=== PATIENT | male | born 1965 | race American Indian/Alaskan Native ===

== ENCOUNTER 2016-09-18 11:57 | Emergency (ER) | payer MEDICAID, OTHER ==
[2016-09-18] MEDS ORDERED: DUONEB 0.5 MG-3 MG/3 ML SOLN IH ONE (12:09)
[2016-09-18] MEDS: DUONEB 0.5 MG-3 MG/3 ML SOLN IH ONE ×2 (12:11→12:12)
[2016-09-18] MEDS ORDERED: MAGNESIUM SULFATE 2GM/50ML 2 GM/50 ML BAG IV ONE (12:50)
[2016-09-18] MEDS ORDERED: PROVENTIL IH ONE (12:50)
--- NOTE | 2016-09-18 12:50 | Emergency Department Report ---
ED Asthma HPI - General Chief Complaint: Adult Asthma Stated Complaint: ASTHMA/ASHLEY Time Seen by Provider: 09/18/16 12:24 Source: patient, family Mode of arrival: Ambulatory Limitations: No Limitations - History of Present Illness Initial Comments: Patient here reported asthma symptoms. He denies having this for 3 days. He said he noted another facility yesterday and was prescribed Symbicort and albuterol and he is used all medication. Patient reports that he takes Dulera and ProAir . He reports then, coughing and chest tightness. He reported his blood pressure medication. Chest pain is 9 out of 10 with similar episode of asthma. He has a history of asthma and hypertension. Denies any history of heart disease. He denies any difficulty breathing. Denies any fever or chills.Deniesn any abdominal pain MD Complaint: "asthma attack", wheezing, other (Medication refill) Onset/Timin -: days(s) Asthma History: childhood onset, history of frequent attac, history of prior ED visit Severity: severe, similar to prior Context: ran out of meds, medication non-compliance Associated Symptoms: dry cough Treatments Prior to Arrival: inhaled bronchodilator, inhaled steroid - Related Data Current Asthma Therapy: inhaled bronchodilator, inhaled steroid, other (Ran out) Home Medications Medication Instructions Recorded Confirmed Last Taken ALBUTEROL NEB's [Proventil 0.083% 1 dose INHALATION 08/16/14 08/16/14 Unknown NEBS] Previous Rx's Medication Instructions Recorded Last Taken Type ALBUTEROL Inhaler [Proair] 2 puff IH QID PRN #1 inhalation 09/18/16 Unknown Rx Azithromycin [Zithromax] 250 mg PO QAM #6 tablet 09/18/16 Unknown Rx Lisinopril [Zestril TAB] 20 mg PO QDAY #30 tablet 09/18/16 Unknown Rx Mometasone/Formoterol [Dulera 200 2 puff IH BID #1 hfa.aer.ad 09/18/16 Unknown Rx Mcg/5 Mcg Inhaler] Allergies Allergy/AdvReac Type Severity Reaction Status Date / Time bee pollen Allergy Shortness Verified 08/15/14 21:50 of Breath mold Allergy Shortness Uncoded 08/15/14 21:50 of Breath ED Review of Systems ROS: Stated complaint: ASTHMA/ASHLEY Other details as noted in HPI Comment: All other systems reviewed and negative Constitutional: denies: chills, fever ENT: denies: ear pain, throat pain, congestion Respiratory: cough, wheezing. denies: orthopnea, shortness of breath, SOB with exertion, SOB at rest, stridor Cardiovascular: chest pain (chest tightness). denies: palpitations, edema, syncope Gastrointestinal: denies: abdominal pain, nausea, vomiting Skin: denies: rash Neurological: denies: headache, weakness, numbness, paresthesias, confusion, abnormal gait, vertigo ED Past Medical Hx - Past Medical History Previous Medical History?: Yes Hx Hypertension: Yes Hx Asthma: Yes - Surgical History Past Surgical History?: No - Family History Family history: hypertension - Social History Smoking Status: Never Smoker Substance Use Type: Alcohol, Prescribed - Medications Home Medications: Home Medications Medication Instructions Recorded Confirmed Last Taken Type ALBUTEROL NEB's [Proventil 0.083% 1 dose INHALATION 08/16/14 08/16/14 Unknown History NEBS] ALBUTEROL Inhaler [Proair] 2 puff IH QID PRN #1 inhalation 09/18/16 Unknown Rx Azithromycin [Zithromax] 250 mg PO QAM #6 tablet 09/18/16 Unknown Rx Lisinopril [Zestril TAB] 20 mg PO QDAY #30 tablet 09/18/16 Unknown Rx Mometasone/Formoterol [Dulera 200 2 puff IH BID #1 hfa.aer.ad 09/18/16 Unknown Rx Mcg/5 Mcg Inhaler] ED Physical Exam - General Limitations: No Limitations General appearance: alert, in no apparent distress - Head Head exam: Present: atraumatic, normocephalic, normal inspection - Eye Eye exam: Present: normal appearance, PERRL, EOMI. Absent: scleral icterus, conjunctival injection, periorbital swelling, periorbital tenderness Pupils: Present: normal accommodation - ENT ENT exam: Present: normal exam, normal orophraynx, mucous membranes moist, TM's normal bilaterally, normal external ear exam - Neck Neck exam: Present: normal inspection, full ROM. Absent: tenderness, meningismus, lymphadenopathy - Respiratory Respiratory exam: Present: normal lung sounds bilaterally, wheezes. Absent: respiratory distress, rales, rhonchi, stridor, chest wall tenderness, accessory muscle use, decreased breath sounds, prolonged expiratory - Cardiovascular Cardiovascular Exam: Present: regular rate, normal rhythm, normal heart sounds - GI/Abdominal GI/Abdominal exam: Present: soft, normal bowel sounds. Absent: distended, tenderness, guarding, rebound, rigid - Extremities Exam Extremities exam: Present: normal inspection, full ROM, normal capillary refill. Absent: tenderness, pedal edema, joint swelling - Back Exam Back exam: Present: normal inspection, full ROM. Absent: tenderness - Neurological Exam Neurological exam: Present: alert, oriented X3, normal gait, reflexes normal. Absent: motor sensory deficit - Psychiatric Psychiatric exam: Present: normal affect, normal mood - Skin Skin exam: Present: warm, dry, intact, normal color. Absent: rash ED Course Vital Signs 09/18/16 09/18/16 09/18/16 12:02 12:15 12:35 Temperature 98.8 F Pulse Rate 94 H Pulse Rate [ 98 H 99 H Bilateral Upper Lobe] Respiratory 22 Rate Respiratory 20 18 Rate [Bilateral Upper Lobe] Blood Pressure 153/101 Blood Pressure [Left] O2 Sat by Pulse 96 Oximetry 09/18/16 09/18/16 09/18/16 12:58 13:16 14:54 Temperature Pulse Rate Pulse Rate [ 105 H 110 H 108 H Bilateral Upper Lobe] Respiratory Rate Respiratory 20 20 20 Rate [Bilateral Upper Lobe] Blood Pressure Blood Pressure [Left] O2 Sat by Pulse Oximetry 09/18/16 09/18/16 15:11 17:07 Temperature 98 F Pulse Rate 89 Pulse Rate [ 109 H Bilateral Upper Lobe] Respiratory 18 Rate Respiratory 20 Rate [Bilateral Upper Lobe] Blood Pressure Blood Pressure 156/96 [Left] O2 Sat by Pulse 97 Oximetry - Reevaluation(s) Reevaluation #1: 09/18/16 14:39 Patient received IV magnesium, and nebulizer, albuterol 10 mg nebulizer and Solu -Medrol 125 mg IV with some relief but he said he feels tight in his lungs. I spoke Dr. Ji patient received 5 mg of Xopenex and reevaluated. Reevaluation #2: 09/18/16 16:54 Patient given Xopenex 2.5 mg nebulizer and he reports he is feeling better. Also given lisinopril 20 mg elevated blood pressure with history of HTN ED Medical Decision Making - Medical Decision Making ED course: Seen here with acute exacerbation of asthma. He was given DuoNeb 2 and treatment in triage area which did not relieve his wheezing and chest tightness. Patient was given additional albuterol 10 mg nebulized in ED, Solu -Medrol 125 mg IV and magnesium 2 g IV. After treatments and reevaluated and he feels wheezing and the tightness was relieved. Upon evaluation, patient still with wheezing in the lung ponce which has improved. She was given additional Xopenex 2.5 mg nebulizer and operative evaluation he still has some scattered wheezes and prolonged ponce but he said he feels much better and he is ready to leave. I spoke with Dr. nieto on regarding patient presentation, treatment in emergency room. Patient also with elevated blood pressure with history of high blood pressure and he said he ran out of his lisinopril one month ago. Patient was given lisinopril 20 mg in emergency room and discharged home with prescription for lisinopril, Dulera, prednisone and ProAir. Critical care attestation.: If time is entered above; I have spent that time in minutes in the direct care of this critically ill patient, excluding procedure time. ED Disposition Clinical Impression: Cough in adult, Elevated blood pressure reading with diagnosis of hypertension , Medication refill Acute asthma exacerbation Qualifiers: Asthma severity: moderate persistent Qualified Code(s): J45.41 - Moderate persistent asthma with (acute) exacerbation Disposition: DC-01 TO HOME OR SELFCARE Is pt being admited?: No Does the pt Need Aspirin: No Condition: Stable Instructions: Asthma (ED), Hypertension (ED), Acute Cough (ED) Additional Instructions: Since you do not have a primary care physician, follow-up at [facility] for management of asthma and hypertension Please take medication as prescribed. If Symptoms to return, please return to emergency room Prescriptions: ALBUTEROL Inhaler [Proair] 2 puff IH QID PRN #1 inhalation PRN Reason: WHEEZING AND COUGH Azithromycin [Zithromax] 250 mg PO QAM #6 tablet Lisinopril [Zestril TAB] 20 mg PO QDAY #30 tablet Mometasone/Formoterol [Dulera 200 Mcg/5 Mcg Inhaler] 2 puff IH BID #1 hfa.aer.ad Referrals: [facility] [Outside] - 09/22/16 Forms: Accompanied Note, Work/School Release Form(ED)
[2016-09-18] MEDS ORDERED: XOPENEX IH ONE (14:42)
[2016-09-18] MEDS ORDERED: ZESTRIL PO ONE (16:53)
[2016-09-18 17:15] VITALS: BP 156/96
[2016-09-18] MEDS ORDERED: NACL ONE (19:12)
== END 2016-09-18 17:25 | disposition home or self-care (01) ==
LOC: ED 11:57
DX: J45.41 Moderate persistent asthma with (acute) exacerbation (principal); Z76.0 Encounter for issue of repeat prescription; I10 Essential (primary) hypertension; Z91.048 Other nonmedicinal substance allergy status
CPT/HCPCS: 94640; 96365; 96366; 96375; 99283; J2930; J3475

== ENCOUNTER 2016-11-02 20:19 | Inpatient (IN) | payer MEDICAID ==
[2016-11-02] MEDS ORDERED: ATROVENT IH ONE (20:41)
[2016-11-02] MEDS ORDERED: PROVENTIL IH ONE ×2 (20:41→22:39)
[2016-11-02 21:21] LABS: Hematocrit 45.4 % (35.5-45.6); Hemoglobin 14.3 gm/dl (11.8-15.2); Mean Corpuscular HGB Conc 32 % (32-34); Mean Corpuscular Hemoglobin 29 pg (28-32); Mean Corpuscular Volume 91 fl (84-94); Platelet Count 241 K/mm3 (140-440); Red Blood Count 4.99 M/mm3 (3.65-5.03); Red Cell Distribution Width 14.2 % (13.2-15.2); White Blood Count 14.6 K/mm3 (4.5-11.0)
[2016-11-02 21:42] LABS: Anion Gap 19 mmol/L; Blood Urea Nitrogen 22 mg/dL (9-20); Calcium 8.7 mg/dL (8.4-10.2); Carbon Dioxide 21 mmol/L (22-30); Chloride 104.7 mmol/L (98-107); Glucose 166 mg/dL (75-100); Potassium 3.9 mmol/L (3.6-5.0); Sodium 141 mmol/L (137-145)
--- NOTE | 2016-11-02 22:02 | XRay Report ---
FINAL REPORT EXAM: XR CHEST 1V AP HISTORY: sob TECHNIQUE: upright single view chest PRIORS: None. FINDINGS: Cardiac and mediastinal contours are unremarkable. No focal pulmonary infiltrate is identified. No pleural fluid collection seen. Pulmonary vasculature is unremarkable. IMPRESSION: Negative single-view chest
--- NOTE | 2016-11-02 22:40 | Emergency Department Report ---
ED Shortness of Breath HPI - General Chief Complaint: Dyspnea/Respdistress Stated Complaint: DIFFICULTY IN BREATHING Time Seen by Provider: 11/02/16 21:17 Source: EMS Mode of arrival: Stretcher Limitations: No Limitations - History of Present Illness Initial Comments: 51-year-old male with a past medical history asthma and hypertension presents to the hospital complaining of wheezing and shortness of breath. Patient has been short of breath for the past 2 days. Dry cough reported. Patient is noncompliant with Symbicort and Dulera but ran out of his albuterol yesterday due to increased use. He does not have a nebulizer at this time. No oral steroids at this time. He does not have a bead filler. No previous intubations. Patient received albuterol, Solu-Medrol, and magnesium in route via EMS. Patient also reports a papular rash to the right side of his withdrawal extending into behind his ear. Swelling to area has improved but persistent - Related Data Home Medications Medication Instructions Recorded Confirmed Last Taken ALBUTEROL NEB's [Proventil 0.083% 1 dose INHALATION 08/16/14 08/16/14 Unknown NEBS] Previous Rx's Medication Instructions Recorded Last Taken Type ALBUTEROL Inhaler [Proair] 2 puff IH QID PRN #1 inhalation 09/18/16 Unknown Rx Azithromycin [Zithromax] 250 mg PO QAM #6 tablet 09/18/16 Unknown Rx Lisinopril [Zestril TAB] 20 mg PO QDAY #30 tablet 09/18/16 Unknown Rx Mometasone/Formoterol [Dulera 200 2 puff IH BID #1 hfa.aer.ad 09/18/16 Unknown Rx Mcg/5 Mcg Inhaler] Allergies Allergy/AdvReac Type Severity Reaction Status Date / Time bee pollen Allergy Shortness Verified 08/15/14 21:50 of Breath mold Allergy Shortness Uncoded 08/15/14 21:50 of Breath ED Review of Systems ROS: Stated complaint: DIFFICULTY IN BREATHING Other details as noted in HPI Comment: All other systems reviewed and negative Other: Constitutional: No fevers chills Eyes: No eye pain visual changes ENT: No ear pain or throat pain Neck: Denies pain Respiratory: As per HPI Cardiovascular: Denies chest pain, palpitations, syncope GI: Denies abdominal pain, nausea, vomiting, diarrhea : Denies dysuria Musculoskeletal: Denies back pain, joint swelling Skin: Skin as per HPI Neurologic: Denies headache, numbness, weakness Psychiatric: Denies suicidal ideation, hallucinations ED Past Medical Hx - Past Medical History Hx Hypertension: Yes Hx Asthma: Yes - Social History Smoking Status: Never Smoker Substance Use Type: None - Medications Home Medications: Home Medications Medication Instructions Recorded Confirmed Last Taken Type ALBUTEROL NEB's [Proventil 0.083% 1 dose INHALATION 08/16/14 08/16/14 Unknown History NEBS] ALBUTEROL Inhaler [Proair] 2 puff IH QID PRN #1 inhalation 09/18/16 Unknown Rx Azithromycin [Zithromax] 250 mg PO QAM #6 tablet 09/18/16 Unknown Rx Lisinopril [Zestril TAB] 20 mg PO QDAY #30 tablet 09/18/16 Unknown Rx Mometasone/Formoterol [Dulera 200 2 puff IH BID #1 hfa.aer.ad 09/18/16 Unknown Rx Mcg/5 Mcg Inhaler] ED Physical Exam - General Limitations: No Limitations - Other Other exam information: General: No limitations, patient is alert in no acute distress Head exam: Atraumatic, normocephalic Eyes exam: Normal appearance, pupils equal reactive to light, extraocular movements intact ENT: Moist mucous membrane, normal oropharynx Neck exam: Normal inspection, full range of motion, no meningismus nontender Respiratory exam: Wheezing, tachypnea, mild accessory muscle use Cardiovascular: Normal rate and rhythm, normal heart sounds Abdomen: Soft, nondistended, and nontender, with normal bowel sounds, no rebound, or guarding Extremity: Full range of motion normal inspection no deformity, no calf tenderness or edema Back: Normal Inspection, full range of motion, no tenderness Neurologic: Alert, oriented x3, cranial nerves intact, no motor or sensory deficit Psychiatric: normal affect, normal mood Skin: Patient has a papular follicular rash to right mandible area along side of serrano with papules extending behind the ear. No active drainage, induration , warmth, erythema. Folliculitis from shaving suspected ED Course Vital Signs 11/02/16 11/02/16 11/02/16 20:34 20:41 20:44 Temperature 98 F Pulse Rate 102 H 103 H 101 H Pulse Rate [ Bilateral Throughout] Respiratory 17 18 24 Rate Respiratory Rate [Bilateral Throughout] Blood Pressure 180/94 Blood Pressure 180/94 [Left] O2 Sat by Pulse 95 95 96 Oximetry 11/02/16 11/02/16 11/02/16 20:51 21:00 21:11 Temperature Pulse Rate 98 H 95 H 96 H Pulse Rate [ Bilateral Throughout] Respiratory 20 17 17 Rate Respiratory Rate [Bilateral Throughout] Blood Pressure 180/94 161/99 161/99 Blood Pressure [Left] O2 Sat by Pulse 97 98 98 Oximetry 11/02/16 11/02/16 11/02/16 21:21 21:31 21:35 Temperature Pulse Rate 94 H 96 H Pulse Rate [ 88 Bilateral Throughout] Respiratory 18 20 Rate Respiratory 20 Rate [Bilateral Throughout] Blood Pressure 161/99 161/99 Blood Pressure [Left] O2 Sat by Pulse 100 100 Oximetry 11/02/16 11/02/16 11/02/16 21:41 21:51 22:00 Temperature Pulse Rate 97 H 97 H 96 H Pulse Rate [ Bilateral Throughout] Respiratory 13 19 15 Rate Respiratory Rate [Bilateral Throughout] Blood Pressure 161/99 161/99 169/91 Blood Pressure [Left] O2 Sat by Pulse 100 99 97 Oximetry 11/02/16 11/02/16 11/02/16 22:11 22:21 22:31 Temperature Pulse Rate Pulse Rate [ Bilateral Throughout] Respiratory Rate Respiratory Rate [Bilateral Throughout] Blood Pressure 169/91 169/91 169/91 Blood Pressure [Left] O2 Sat by Pulse 100 96 76 L Oximetry 11/02/16 11/02/16 11/02/16 22:41 23:12 23:15 Temperature 98.6 F Pulse Rate Pulse Rate [ Bilateral Throughout] Respiratory Rate Respiratory Rate [Bilateral Throughout] Blood Pressure 169/91 169/91 Blood Pressure [Left] O2 Sat by Pulse 100 Oximetry 11/02/16 11/02/16 11/02/16 23:21 23:31 23:41 Temperature Pulse Rate 101 H 98 H 101 H Pulse Rate [ Bilateral Throughout] Respiratory 33 H 17 20 Rate Respiratory Rate [Bilateral Throughout] Blood Pressure 159/108 192/105 169/91 Blood Pressure [Left] O2 Sat by Pulse 97 99 97 Oximetry 11/02/16 11/03/16 23:51 00:01 Temperature Pulse Rate 103 H 101 H Pulse Rate [ Bilateral Throughout] Respiratory 18 15 Rate Respiratory Rate [Bilateral Throughout] Blood Pressure 169/91 194/95 Blood Pressure [Left] O2 Sat by Pulse 89 97 Oximetry - Reevaluation(s) Reevaluation #1: 11/03/16 Despite ED treatment patient continues to have wheezing and therefore requires admission ED Medical Decision Making - Lab Data Result diagrams: 11/02/16 20:41 11/02/16 20:41 Lab Results 11/02/16 11/02/16 Range/Units 20:41 20:41 WBC 14.6 H (4.5-11.0) K/mm3 RBC 4.99 (3.65-5.03) M/mm3 Hgb 14.3 (11.8-15.2) gm/dl Hct 45.4 (35.5-45.6) % MCV 91 (84-94) fl MCH 29 (28-32) pg MCHC 32 (32-34) % RDW 14.2 (13.2-15.2) % Plt Count 241 (140-440) K/mm3 Lymph % (Auto) 5.2 L (13.4-35.0) % [place] % (Auto) 6.2 (0.0-7.3) % Eos % (Auto) 0.0 (0.0-4.3) % Baso % (Auto) 0.0 (0.0-1.8) % Lymph # 0.8 L (1.2-5.4) K/mm3 [place] # 0.9 H (0.0-0.8) K/mm3 Eos # 0.0 (0.0-0.4) K/mm3 Baso # 0.0 (0.0-0.1) K/mm3 Seg Neutrophils % 88.6 H (40.0-70.0) % Seg Neutrophils # 13.0 H (1.8-7.7) K/mm3 Sodium 141 (137-145) mmol/L Potassium 3.9 (3.6-5.0) mmol/L Chloride 104.7 (98-107) mmol/L Carbon Dioxide 21 L (22-30) mmol/L Anion Gap 19 mmol/L BUN 22 H (9-20) mg/dL Creatinine 1.0 (0.8-1.5) mg/dL Estimated GFR > 60 ml/min BUN/Creatinine Ratio 22.00 % Glucose 166 H (75-100) mg/dL Calcium 8.7 (8.4-10.2) mg/dL Troponin T < 0.010 (0.00-0.029) ng/mL - EKG Data -: EKG Interpreted by Me - Radiology Data Radiology results: report reviewed (chest x-ray: No acute finding) - Medical Decision Making Patient requires admission to the hospital for acute asthma exacerbation with persistent wheezing despite ED treatment - Differential Diagnosis bronchitis, pneumonia, asthma exacerbation, COPD Critical Care Time: No Critical care attestation.: If time is entered above; I have spent that time in minutes in the direct care of this critically ill patient, excluding procedure time. ED Disposition Clinical Impression: Acute asthma exacerbation, Folliculitis Disposition: OP ADMIT IP TO THIS HOSP Is pt being admited?: Yes Condition: Stable Time of Disposition: 22:40 (Nwozo/hosp)
[2016-11-03] MEDS ORDERED: PROVENTIL IH ONE (02:15)
[2016-11-03] MEDS ORDERED: MORPHINE ONE (02:30)
[2016-11-03] MEDS ORDERED: MORPHINE IM ONE (02:35)
[2016-11-03] MEDS ORDERED: XOPENEX IH PRN (02:36)
[2016-11-03] MEDS ORDERED: ATROVENT IH PRN (02:38)
[2016-11-03] MEDS ORDERED: MORPHINE IV PRN (02:42)
[2016-11-03] MEDS ORDERED: ZOFRAN IV PRN (02:51)
[2016-11-03] MEDS ORDERED: APRESOLINE IV PRN (03:05)
[2016-11-03] MEDS ORDERED: HEPARIN SUB-Q SCH (06:00)
[2016-11-03] MEDS: XOPENEX IH SCH ×4 (07:36→20:51)
[2016-11-03] MEDS: ATROVENT IH SCH ×4 (07:37→20:51)
--- NOTE | 2016-11-03 07:57 | History and Physical Report ---
CHIEF COMPLAINT: Shortness of breath. HISTORY OF PRESENTING ILLNESS: The patient is a 51-year-old man with history of asthma, presenting with shortness of breath and wheezing going on for about 2 days. There is also history of associated dry cough, but no history of fever was recorded. No history of nausea or vomiting. Also, the patient denied history of chest pain and said he ran out of his albuterol inhaler and nebulizer. There is no history of diaphoresis and no history of nausea or vomiting. PAST MEDICAL HISTORY: Pertinent for asthma and hypertension. PAST SURGICAL HISTORY: Unremarkable. FAMILY HISTORY: Noncontributory. SOCIAL HISTORY: The patient does not smoke, does not drink alcohol, and does not use illicit drug. MEDICATIONS: The patient is on albuterol nebulizer, dose of 0.083%, frequency unknown. Also, the patient is on albuterol inhaler 2 puffs inhalation q.i.d. as needed for shortness of breath. The patient is on Zithromax 250 mg every morning, lisinopril 20 mg by mouth daily. The patient is on Dulera, which is mometasone/formoterol 200/5 mcg inhalation 2 puffs by inhalation twice daily. ALLERGIES: The patient is allergic to bee and pollen as well as mold. REVIEW OF SYSTEMS: CONSTITUTIONAL: There is no fever, no chills, no diaphoresis. HEENT: There is no headache or sore throat. CARDIOVASCULAR SYSTEM: There is no chest pain or orthopnea. RESPIRATORY SYSTEM: Shortness of breath is present. Cough present. GASTROINTESTINAL SYSTEM: There is no nausea, no vomiting, no abdominal pain, diarrhea, or constipation. NEUROLOGICAL: There is no numbness, no dizziness, no altered mental status. MUSCULOSKELETAL SYSTEM: There is no joint pain or swelling. DERMATOLOGICAL SYSTEM: There is no skin rash or itching. GENITOURINARY SYSTEM: There is no dysuria, hematuria, or flank pain. Rest of system review is normal. PHYSICAL EXAMINATION: GENERAL: At the time of exam, the patient was found to be alert, oriented x3, and in [id number] distress due to shortness of breath. VITAL SIGNS: Shows normal temperature with pulse of 101, respirations 15, blood pressure 194/95, O2 sat of 97% of oxygen with respiratory rate of 15. HEENT: Shows pupils to be equal, round, reactive to light, and accommodating. Extraocular muscles are intact. NECK: Supple with no JVD or carotid bruit. CARDIOVASCULAR SYSTEM: Show first and second heart sounds with no gallops or murmur. RESPIRATORY SYSTEM: Showed reduced air entry on both sides of the lung with expiratory wheezing. There is no use of accessory respiratory muscles. GASTROINTESTINAL SYSTEM: Show abdomen to be full, soft, nontender with no organomegaly or rigidity. NEUROLOGIC: Shows no focal deficit. MUSCULOSKELETAL SYSTEM: Shows no joint swelling or tenderness. DERMATOLOGICAL SYSTEM: Shows no skin rash. GENITOURINARY SYSTEM: Showing no costovertebral angle tenderness. PERTINENT LABORATORY: The patient has CBC done with elevated white count of 14,600 with normal hemoglobin, normal hematocrit. CBC differential showed elevated segmented neutrophil count of 88.6% with no band. Chemistry shows normal sodium and potassium with slightly elevated BUN of 22 and normal creatinine and normal GFR. First level of troponin level was normal. IMAGING STUDIES: The patient had chest x-ray done that was unremarkable. DIAGNOSIS: Asthma exacerbation. PLAN: The patient will be admitted to medical floor on telemetry. The patient will be on Xopenex nebulizer 1.25 mg q. 6 hours as needed for shortness of breath and also will be on Atrovent 0.5 mg by nebulizer q. 6 hours as needed for shortness of breath. The patient will be on Solu-Medrol 80 mg IV q. 6 hours and will be on Levaquin 750 mg IV daily. The patient will be on morphine 2 mg IV 4 hours as needed for anxiety and will be on IV Zofran 4 mg intravenously q. 6 hours as needed for nausea and vomiting. The patient will also be on Tylenol 650 mg by mouth every 4 hours as needed for fever and headache and will be on hydralazine 10 mg IV q. 4 hours for blood pressure above 150/90. The patient's home medications will be reconciled and started accordingly. JOB# [id number] OCN/NTS [id number]
--- NOTE | 2016-11-03 08:14 | Admit Criteria Form ---
Admission Criteria Documentation: ASTHMA Clinical Indications for Admission to Inpatient Care ([place]/check or initial the applicable condition/criteria) Admission is indicated for ANY ONE of the following (1)(2)(3)(4): [ ]I. Ventilatory support required [ ]II. Peak expiratory flow rate less than 25% of predicted or personal best before treatment [ ]III. Peak expiratory flow rate less than 40% of predicted or personal best after treatment [ ]IV. Peak expiratory flow rate between 40% and 60% of predicted or personal best after treatment, and ANY ONE of the following: [ ]a) History of asthma requiring intubation [ ]b) Hospitalization for asthma within the past year [ ]c) Current or recent use of oral corticosteroids for asthma [ ]d) Use of more than 1 canister of inhaled beta2-agonist in past month [ ]e) Exacerbation due to allergic reaction to food [ ]f) Inadequate access to medical care or medications [ ]g) Adherence to post-discharge asthma regimen cannot be assured (eg, psychosocial problems, poor adherence, no available follow-up care) [ ]V. Hypoxemia [ ]. PaCO2 elevation from baseline by 2 mm Hg (0.27 kPa) or greater [ ]VII. Cyanosis [ ]VIII. Silent chest (absent or markedly diminished breath sounds) [ ]IX. Cardiac dysrhythmia (eg, Bradycardia) [ ]X. Hemodynamic instability [ ]XI. Altered mental status [ ]XII. Radiographic evidence of complication requiring inpatient treatment (eg, pneumonia, pneumothorax) [X ]XIII. Inpatient admission required[A] rather than observation care because of ANY ONE of the following: [X ]a) Respiratory finding that is severe or persistent (eg, dyspnea, Tachypnea, accessory muscle use) [ ]b) Other condition, treatment, or monitoring requiring inpatient admission Extended stay beyond goal length of stay may be needed for (1)(25)(27): [ ]a) Severe respiratory distress or respiratory failure (22)(23)(28)(29) [ ]b) Secondary causes and complications (24) [ ]c) Status asthmaticus [ ]d) Chronic obstructive asthma (eg, asthma-COPD overlap syndrome) (30) [ ]e) Older patients (65 years or older) (28) [ ]f) Slow resolution [ ]g) Clinically significant exacerbation of comorbidities (e.g., congestive heart failure,atrial fibrillation) The original [facility] [employer] content created by [facility] has been revised. The portions of the content which have been revised are identified through the use of italic text or in bold, and [facility] has neither reviewed nor approved the modified material. All other unmodified content is copyright [facility] Please see references footnoted in the original [facility] edition 2017 Admission Criteria Met: Yes
--- NOTE | 2016-11-03 10:09 | Progress Note ---
Assessment and Plan Assessment and plan: 51-year-old male with past medical history of asthma who presents with shortness of breath and wheezing. Asthma exacerbation Continue oxygen supplementation, continue nebulizer steroids antibiotics. Acute hypoxic respiratory failure oxygen sat was 89% this am, Continue oxygen supplementation Hypertensive urgency Resume home medications, optimize medications and give hydralazine IV as needed DVT prophylaxis Lovenox History Interval history: Still complaining of shortness of breath cough and wheezing. Hospitalist Physical - Physical exam Narrative exam: General: Patient appears well in no distress HEENT: MMM, EOMI cardiac: S1-S2 heard lungs: Wheezing throughout, decreased air entry abdomen: soft, nontender, nondistended bowel sounds positive extremities: no edema clubbing or cyanosis Skin: no rash or lesion Neuro: no focal deficit Psych: appropriate behavior and mood, cognition intact - Constitutional Vitals: Temp Pulse Resp BP Pulse Ox 97.8 F 103 H 20 168/84 97 11/03/16 07:26 11/03/16 08:12 11/03/16 08:12 11/03/16 07:26 11/03/16 07:57 Results - Labs CBC & Chem 7: 11/02/16 20:41 11/02/16 20:41 Labs: Laboratory Last Values WBC 14.6 K/mm3 (4.5-11.0) H 11/02/16 20:41 RBC 4.99 M/mm3 (3.65-5.03) 11/02/16 20:41 Hgb 14.3 gm/dl (11.8-15.2) 11/02/16 20:41 Hct 45.4 % (35.5-45.6) 11/02/16 20:41 MCV 91 fl (84-94) 11/02/16 20:41 MCH 29 pg (28-32) 11/02/16 20:41 MCHC 32 % (32-34) 11/02/16 20:41 RDW 14.2 % (13.2-15.2) 11/02/16 20:41 Plt Count 241 K/mm3 (140-440) 11/02/16 20:41 Lymph % (Auto) 5.2 % (13.4-35.0) L 11/02/16 20:41 [place] % (Auto) 6.2 % (0.0-7.3) 11/02/16 20:41 Eos % (Auto) 0.0 % (0.0-4.3) 11/02/16 20:41 Baso % (Auto) 0.0 % (0.0-1.8) 11/02/16 20:41 Lymph # 0.8 K/mm3 (1.2-5.4) L 11/02/16 20:41 [place] # 0.9 K/mm3 (0.0-0.8) H 11/02/16 20:41 Eos # 0.0 K/mm3 (0.0-0.4) 11/02/16 20:41 Baso # 0.0 K/mm3 (0.0-0.1) 11/02/16 20:41 Seg Neutrophils % 88.6 % (40.0-70.0) H 11/02/16 20:41 Seg Neutrophils # 13.0 K/mm3 (1.8-7.7) H 11/02/16 20:41 Sodium 141 mmol/L (137-145) 11/02/16 20:41 Potassium 3.9 mmol/L (3.6-5.0) 11/02/16 20:41 Chloride 104.7 mmol/L (98-107) 11/02/16 20:41 Carbon Dioxide 21 mmol/L (22-30) L 11/02/16 20:41 Anion Gap 19 mmol/L 11/02/16 20:41 BUN 22 mg/dL (9-20) H 11/02/16 20:41 Creatinine 1.0 mg/dL (0.8-1.5) 11/02/16 20:41 Estimated GFR > 60 ml/min 11/02/16 20:41 BUN/Creatinine Ratio 22.00 % 11/02/16 20:41 Glucose 166 mg/dL (75-100) H 11/02/16 20:41 Calcium 8.7 mg/dL (8.4-10.2) 11/02/16 20:41 Troponin T < 0.010 ng/mL (0.00-0.029) 11/02/16 20:41 - Imaging and Cardiology Chest x-ray: image reviewed (no acute findings)
[2016-11-03] MEDS: ZESTRIL PO SCH (13:11)
[2016-11-03] MEDS: HCTZ PO SCH (13:12)
[2016-11-03] MEDS: LEVAQUIN 750MG/150ML 750 MG/150 ML BAG IV SCH (13:12)
[2016-11-03] MEDS: PULMICORT IH SCH (20:42)
[2016-11-03] MEDS: BROVANA NEBU IH SCH (20:42)
[2016-11-03] MEDS: LOVENOX SUB-Q SCH (21:25)
[2016-11-04] MEDS: TYLENOL PO PRN (00:22)
[2016-11-04] MEDS: XOPENEX IH SCH ×5 (02:34→20:43)
[2016-11-04] MEDS: ATROVENT IH SCH ×5 (02:34→20:43)
[2016-11-04] MEDS: PULMICORT IH SCH ×2 (09:28→20:43)
[2016-11-04] MEDS: BROVANA NEBU IH SCH ×2 (09:28→20:43)
--- NOTE | 2016-11-04 09:58 | Discharge Summary ---
Providers - Providers Date of Admission: 11/03/16 02:36 Attending physician: DOMINIC EDEN MD Primary care physician: DENILSON VILLARREAL MD Hospitalization Condition: Stable Hospital course: 51-year-old male with past medical history of asthma who presents with shortness of breath and wheezing. He was treated with oxygen supplementation, nebulizer, steroids and antibiotics. Patient clinically improved, he was weaned off oxygen. His blood pressure medications were optimized, and he was discharged home in improved condition Discharge diagnoses Asthma exacerbation Acute hypoxic respiratory failure Hypertensive urgency Disposition: DC-01 TO HOME OR SELFCARE Time spent for discharge: 33 minutes Core Measure Documentation - Palliative Care Palliative Care/ Comfort Measures: Not Applicable - Core Measures Any of the following diagnoses?: none Exam - Constitutional Vitals: Temp Pulse Resp BP Pulse Ox 98.0 F 84 20 140/87 99 11/04/16 09:00 11/04/16 09:00 11/04/16 09:00 11/04/16 09:00 11/04/16 09:30 General appearance: Present: no acute distress, well-nourished - EENT Eyes: Present: PERRL ENT: hearing intact, clear oral mucosa - Neck Neck: Present: supple, normal ROM - Respiratory Respiratory effort: normal Respiratory: bilateral: CTA - Cardiovascular Heart Sounds: Present: S1 & S2. Absent: rub, click - Extremities Extremities: pulses symmetrical, No edema Peripheral Pulses: within normal limits - Abdominal General gastrointestinal: Present: soft, non-tender, non-distended, normal bowel sounds Male genitourinary: Present: normal - Integumentary Integumentary: Present: clear, warm, dry - Musculoskeletal Musculoskeletal: gait normal, strength equal bilaterally - Psychiatric Psychiatric: appropriate mood/affect, intact judgment & insight - Neurologic Neurologic: CNII-XII intact, moves all extremities Plan Follow up with: PRIMARY CARE, [Primary Care Provider] - 7 Days Prescriptions: ALBUTEROL Inhaler [ProAir HFA Inhaler] 2 puff IH QID PRN #1 inhalation PRN Reason: WHEEZING AND COUGH ALBUTEROL NEB's [Proventil 0.083% NEBS] 1 dose INHALATION Q4H PRN #180 nebu PRN Reason: Shortness Of Breath guaiFENesin DM [Robitussin Dm] 20 ml PO Q4H PRN #1 bottle PRN Reason: Cough Hydrochlorothiazide [HCTZ] 25 mg PO QDAY #30 tablet Lisinopril [Zestril TAB] 20 mg PO QDAY #30 tablet Mometasone/Formoterol [Dulera 200 Mcg/5 Mcg Inhaler] 2 puff IH BID #1 hfa.aer.ad predniSONE [Deltasone] 10 mg PO .TAPER #48 tab
[2016-11-04] MEDS: LEVAQUIN 750MG/150ML 750 MG/150 ML BAG IV SCH (10:22)
[2016-11-04] MEDS: HCTZ PO SCH (10:22)
[2016-11-04] MEDS: ZESTRIL PO SCH (10:22)
--- NOTE | 2016-11-04 16:26 | Progress Note ---
Assessment and Plan Assessment and plan: 51-year-old male with past medical history of asthma who presents with shortness of breath and wheezing. Asthma exacerbation Continue oxygen supplementation, continue nebulizer steroids antibiotics. Acute hypoxic respiratory failure oxygen sat was 89% this am, Continue oxygen supplementation as needed Hypertensive urgency Resume home medications, optimize medications and give hydralazine IV as needed DVT prophylaxis Lovenox History Interval history: Still complaining of shortness of breath cough and wheezing. Admits to interval improvement Hospitalist Physical - Physical exam Narrative exam: General: Patient appears well in no distress HEENT: MMM, EOMI cardiac: S1-S2 heard lungs: Wheezing is reduced today, improved air entry abdomen: soft, nontender, nondistended bowel sounds positive extremities: no edema clubbing or cyanosis Skin: no rash or lesion Neuro: no focal deficit Psych: appropriate behavior and mood, cognition intact - Constitutional Vitals: Temp Pulse Resp BP Pulse Ox 98.4 F 80 18 158/85 97 11/04/16 12:00 11/04/16 12:00 11/04/16 12:00 11/04/16 12:00 11/04/16 12:00 General appearance: Present: no acute distress, well-nourished Results - Labs CBC & Chem 7: 11/02/16 20:41 11/02/16 20:41 Labs: Laboratory Last Values WBC 14.6 K/mm3 (4.5-11.0) H 11/02/16 20:41 RBC 4.99 M/mm3 (3.65-5.03) 11/02/16 20:41 Hgb 14.3 gm/dl (11.8-15.2) 11/02/16 20:41 Hct 45.4 % (35.5-45.6) 11/02/16 20:41 MCV 91 fl (84-94) 11/02/16 20:41 MCH 29 pg (28-32) 11/02/16 20:41 MCHC 32 % (32-34) 11/02/16 20:41 RDW 14.2 % (13.2-15.2) 11/02/16 20:41 Plt Count 241 K/mm3 (140-440) 11/02/16 20:41 Lymph % (Auto) 5.2 % (13.4-35.0) L 11/02/16 20:41 [place] % (Auto) 6.2 % (0.0-7.3) 11/02/16 20:41 Eos % (Auto) 0.0 % (0.0-4.3) 11/02/16 20:41 Baso % (Auto) 0.0 % (0.0-1.8) 11/02/16 20:41 Lymph # 0.8 K/mm3 (1.2-5.4) L 11/02/16 20:41 [place] # 0.9 K/mm3 (0.0-0.8) H 11/02/16 20:41 Eos # 0.0 K/mm3 (0.0-0.4) 11/02/16 20:41 Baso # 0.0 K/mm3 (0.0-0.1) 11/02/16 20:41 Seg Neutrophils % 88.6 % (40.0-70.0) H 11/02/16 20:41 Seg Neutrophils # 13.0 K/mm3 (1.8-7.7) H 11/02/16 20:41 Sodium 141 mmol/L (137-145) 11/02/16 20:41 Potassium 3.9 mmol/L (3.6-5.0) 11/02/16 20:41 Chloride 104.7 mmol/L (98-107) 11/02/16 20:41 Carbon Dioxide 21 mmol/L (22-30) L 11/02/16 20:41 Anion Gap 19 mmol/L 11/02/16 20:41 BUN 22 mg/dL (9-20) H 11/02/16 20:41 Creatinine 1.0 mg/dL (0.8-1.5) 11/02/16 20:41 Estimated GFR > 60 ml/min 11/02/16 20:41 BUN/Creatinine Ratio 22.00 % 11/02/16 20:41 Glucose 166 mg/dL (75-100) H 11/02/16 20:41 Calcium 8.7 mg/dL (8.4-10.2) 11/02/16 20:41 Troponin T < 0.010 ng/mL (0.00-0.029) 11/02/16 20:41
[2016-11-04] MEDS: LOVENOX SUB-Q SCH (22:05)
[2016-11-05] MEDS: XOPENEX IH SCH ×4 (00:01→12:13)
[2016-11-05] MEDS: ATROVENT IH SCH ×4 (00:02→12:13)
[2016-11-05] MEDS: TYLENOL PO PRN (07:50)
[2016-11-05] MEDS: PULMICORT IH SCH (08:04)
[2016-11-05] MEDS: BROVANA NEBU IH SCH (08:04)
[2016-11-05] MEDS: ZESTRIL PO SCH (09:46)
[2016-11-05] MEDS: HCTZ PO SCH (09:46)
[2016-11-05] MEDS: LEVAQUIN 750MG/150ML 750 MG/150 ML BAG IV SCH (09:47)
[2016-11-05] MEDS ORDERED: ROBITUSSIN DM PO PRN (11:00)
[2016-11-05 14:32] VITALS: BP 158/95
== END 2016-11-05 15:42 | disposition home or self-care (01) | DRG 189 ==
LOC: ED 20:19 → 4A 11-03 02:36
PROVIDERS: ADMIT Internal Medicine; ATTEND Internal Medicine
PROC: 5A09357 Assistance with Respiratory Ventilation, Less than 24 Consecutive Hours, Continuous Positive Airway Pressure (ICD-10-PCS; principal; 2016-11-03)
DX: J96.01 Acute respiratory failure with hypoxia (principal); J45.901 Unspecified asthma with (acute) exacerbation; I16.0 Hypertensive urgency; I10 Essential (primary) hypertension; L73.9 Follicular disorder, unspecified; Z79.899 Other long term (current) drug therapy
CPT/HCPCS: 36415; 71010; 80048; 84484; 85025; 93005; 93010; 94640; 94644; 94760; 96372; 96374; J0360; J1644; J1650; J1956; J2270; J2920

== ENCOUNTER 2017-06-24 18:05 | Observation (INO) | payer MEDICAID ==
[2017-06-24] MEDS ORDERED: MAGNESIUM SULFATE 2GM/50ML 2 GM/50 ML BAG IV ONE (18:09)
[2017-06-24] MEDS ORDERED: TESSALON PERLES PO ONE (18:10)
[2017-06-24] MEDS ORDERED: ATROVENT IH ONE (18:10)
[2017-06-24] MEDS ORDERED: PROVENTIL IH ONE (18:10)
--- NOTE | 2017-06-24 18:16 | Emergency Department Report ---
ED Asthma HPI - General Stated Complaint: ASHLEY Time Seen by Provider: 06/24/17 18:09 Source: patient, EMS, old records reviewed Mode of arrival: Stretcher Limitations: No Limitations - History of Present Illness Initial Comments: 52-year-old male with a past medical history asthma and hypertension presents to the hospital complaining of wheezing, shortness of breath, and cough for "a couple of days". Patient's symptoms not improving with home nebs and albuterol treatment. Patient complaining of cough productive of yellow sputum. No fever reported. Patient did receive a flu and pneumonia shot this evening. No previous history of intubation but the patient has required BiPAP in the past. Per medical record review patient also has history of cocaine abuse. Moderate Chest tightness associated with wheezing reported. Patient arrived via EMS and received albuterol 5 mg, Atrovent 0.5 mg (still in progress upon arrival) & Solu -Medrol 125 mg. - Related Data Previous Rx's Medication Instructions Recorded Last Taken Type Hydrochlorothiazide [HCTZ] 25 mg PO QDAY #30 tablet 11/04/16 Unknown Rx Lisinopril [Zestril TAB] 20 mg PO QDAY #30 tablet 11/04/16 Unknown Rx ALBUTEROL Inhaler [ProAir HFA 2 puff IH QID PRN #1 inhalation 01/19/17 Unknown Rx Inhaler] ALBUTEROL NEB's [Proventil 0.083% 1 dose INHALATION Q4H PRN #180 nebu 01/19/17 Unknown Rx NEBS] Levofloxacin [Levaquin TAB] 750 mg PO Q24HR #3 tablet 01/19/17 Unknown Rx Mometasone/Formoterol [Dulera 200 2 puff IH BID #1 hfa.aer.ad 01/19/17 Unknown Rx Mcg/5 Mcg Inhaler] amLODIPine [Norvasc] 10 mg PO QDAY #30 tablet 01/19/17 Unknown Rx guaiFENesin DM [Robitussin Dm] 20 ml PO Q4H PRN #1 bottle 01/19/17 Unknown Rx predniSONE [Deltasone] 10 mg PO .TAPER #48 tab 01/19/17 Unknown Rx Allergies Allergy/AdvReac Type Severity Reaction Status Date / Time bee pollen Allergy Shortness Verified 08/15/14 21:50 of Breath mold Allergy Shortness Uncoded 08/15/14 21:50 of Breath ED Review of Systems ROS: Stated complaint: ASHLEY Other details as noted in HPI Comment: All other systems reviewed and negative ED Past Medical Hx - Past Medical History Hx Hypertension: Yes Hx Congestive Heart Failure: No Hx Diabetes: No Hx Asthma: Yes Hx COPD: No - Social History Smoking Status: Never Smoker - Medications Home Medications: Home Medications Medication Instructions Recorded Confirmed Last Taken Type Hydrochlorothiazide [HCTZ] 25 mg PO QDAY #30 tablet 11/04/16 01/18/17 Unknown Rx Lisinopril [Zestril TAB] 20 mg PO QDAY #30 tablet 11/04/16 01/18/17 Unknown Rx ALBUTEROL Inhaler [ProAir HFA 2 puff IH QID PRN #1 inhalation 01/19/17 Unknown Rx Inhaler] ALBUTEROL NEB's [Proventil 0.083% 1 dose INHALATION Q4H PRN #180 nebu 01/19/17 Unknown Rx NEBS] Levofloxacin [Levaquin TAB] 750 mg PO Q24HR #3 tablet 01/19/17 Unknown Rx Mometasone/Formoterol [Dulera 200 2 puff IH BID #1 hfa.aer.ad 01/19/17 Unknown Rx Mcg/5 Mcg Inhaler] amLODIPine [Norvasc] 10 mg PO QDAY #30 tablet 01/19/17 Unknown Rx guaiFENesin DM [Robitussin Dm] 20 ml PO Q4H PRN #1 bottle 01/19/17 Unknown Rx predniSONE [Deltasone] 10 mg PO .TAPER #48 tab 01/19/17 Unknown Rx ED Physical Exam - General Limitations: No Limitations - Other Other exam information: General: No limitations, moderate distress Head exam: Atraumatic, normocephalic Eyes exam: Normal appearance ENT: Moist mucous membrane, normal oropharynx Neck exam: Normal inspection, full range of motion, no meningismus nontender Respiratory exam: Patient speaking in type sentences, positive tachypnea, accessory muscle use, bilateral wheezing with fair air movement. Frequent productive cough Cardiovascular:regular rate and rhythm Abdomen: Soft, nondistended, and nontender, with normal bowel sounds, no rebound, or guarding Extremity: Full range of motion normal inspection no deformity Back: Normal Inspection, full range of motion, no tenderness Neurologic: Alert, oriented x3, cranial nerves intact, no motor or sensory deficit Psychiatric: normal affect, normal mood Skin: Warm, dry, intact ED Course Vital Signs 06/24/17 06/24/17 06/24/17 18:23 18:26 18:33 Temperature 98.1 F Pulse Rate 80 101 H Pulse Rate [ 101 H Throughout] Respiratory 24 24 Rate Respiratory 22 Rate [ Throughout] Blood Pressure 153/95 153/95 O2 Sat by Pulse 100 97 Oximetry 06/24/17 19:17 Temperature Pulse Rate 71 Pulse Rate [ 71 Throughout] Respiratory 20 Rate Respiratory 20 Rate [ Throughout] Blood Pressure 158/95 O2 Sat by Pulse 99 Oximetry - Reevaluation(s) Reevaluation #1: 06/24/17 18:17 Current Neb treatment provided by EMS in progress. Patient will be placed on BiPAP with additional albuterol Atrovent added to treatment regimen. 06/24/17 19:04 pt feeling better on bipap ED Medical Decision Making - Lab Data Result diagrams: 06/24/17 18:25 06/24/17 18:25 Lab Results 06/24/17 06/24/17 06/24/17 Range/Units 18:25 18:25 18:25 WBC 5.9 (4.5-11.0) K/mm3 RBC 5.03 (3.65-5.03) M/mm3 Hgb 14.7 (11.8-15.2) gm/dl Hct 45.8 H (35.5-45.6) % MCV 91 (84-94) fl MCH 29 (28-32) pg MCHC 32 (32-34) % RDW 14.0 (13.2-15.2) % Plt Count 212 (140-440) K/mm3 Lymph % (Auto) 10.6 L (13.4-35.0) % [place] % (Auto) 3.8 (0.0-7.3) % Eos % (Auto) 0.4 (0.0-4.3) % Baso % (Auto) 0.4 (0.0-1.8) % Lymph # 0.6 L (1.2-5.4) K/mm3 [place] # 0.2 (0.0-0.8) K/mm3 Eos # 0.0 (0.0-0.4) K/mm3 Baso # 0.0 (0.0-0.1) K/mm3 Seg Neutrophils % 84.8 H (40.0-70.0) % Seg Neutrophils # 5.0 (1.8-7.7) K/mm3 Sodium 143 (137-145) mmol/L Potassium 3.9 (3.6-5.0) mmol/L Chloride 102.9 (98-107) mmol/L Carbon Dioxide 27 (22-30) mmol/L Anion Gap 17 mmol/L BUN 14 (9-20) mg/dL Creatinine 1.0 (0.8-1.5) mg/dL Estimated GFR > 60 ml/min BUN/Creatinine Ratio 14 % Glucose 122 H (75-100) mg/dL Calcium 8.6 (8.4-10.2) mg/dL Total Creatine Kinase 631 H (55-170) units/L - EKG Data -: EKG Interpreted by Me EKG shows normal: sinus rhythm, axis (qrs axis 36), QRS complexes (qrsd 86), ST- T waves (lat t inv) Rate: normal (69) - EKG Data When compared to previous EKG there are: no significant change - Radiology Data Radiology results: image reviewed (cxr: naf (read by me)) - Medical Decision Making acute asthma exacerbation with acute bronchitis no infiltrate required bipap support in ED Received albuterol, Atrovent, Solu-Medrol, and magnesium prior to admission Hospitalist informed - Differential Diagnosis asthma, bronchitis, pneumonia, CHF, viral syndrome Critical Care Time: No Critical care attestation.: If time is entered above; I have spent that time in minutes in the direct care of this critically ill patient, excluding procedure time. ED Disposition Clinical Impression: Acute asthma exacerbation, HTN (hypertension), Acute bronchitis with asthma Disposition: OP ADMIT IP TO THIS HOSP Is pt being admited?: Yes Condition: Stable Referrals: PRIMARY CARE, [Primary Care Provider] - 3-5 Days Time of Disposition: 19:07 (DR Neri/hosp)
[2017-06-24 18:39] LABS: Basophils % (Auto) 0.4 % (0.0-1.8); Eosinophils % (Auto) 0.4 % (0.0-4.3); Hematocrit 45.8 % (35.5-45.6); Hemoglobin 14.7 gm/dl (11.8-15.2); Lymphocytes # (Auto) 0.6 K/mm3 (1.2-5.4); Lymphocytes % (Auto) 10.6 % (13.4-35.0); Mean Corpuscular HGB Conc 32 % (32-34); Mean Corpuscular Hemoglobin 29 pg (28-32); Mean Corpuscular Volume 91 fl (84-94); Monocytes # (Auto) 0.2 K/mm3 (0.0-0.8); Monocytes % (Auto) 3.8 % (0.0-7.3); Platelet Count 212 K/mm3 (140-440); Red Blood Count 5.03 M/mm3 (3.65-5.03)
[2017-06-24 18:56] LABS: BUN/Creatinine Ratio 14; Blood Urea Nitrogen 14 mg/dL (9-20); Calcium 8.6 mg/dL (8.4-10.2); Hemolysis Index 8
--- NOTE | 2017-06-24 19:55 | XRay Report ---
FINAL REPORT PROCEDURE: Upright AP chest x-ray TECHNIQUE: Chest radiograph upright AP view. CPT 73408 HISTORY: sob, asthma, productive cough COMPARISON: Prior chest x-ray 01/17/2017 FINDINGS: The heart is magnified due to projection and appears to be normal size. The pulmonary vasculature is not distended. No infiltrates or masses are seen. Multiple punctate radiopaque densities project over the inferior aspect of the right lung. This may represent skin contamination, clothing artifact or artifact on the imaging apparatus. I cannot exclude prior granulomatous disease. IMPRESSION: Multiple punctate calcifications inferior aspect right lower lung field as described possibly artifact. I cannot exclude calcified granulomatous disease.. No other abnormality is seen.
[2017-06-24 22:02] LABS: Amphetamine Screen,Urine PRESUMPTIVE NEGATIVE; Benzodiazepines Screen,Urine PRESUMPTIVE NEGATIVE; Cannabinoid Screen,Urine PRESUMPTIVE NEGATIVE; Methadone Screen,Urine PRESUMPTIVE NEGATIVE; Opiate Screen,Urine PRESUMPTIVE NEGATIVE
[2017-06-24 22:15] LABS: Cocaine Screen,Urine PRESUMPTIVE POSITIVE
[2017-06-24] MEDS ORDERED: SODIUM CHLORIDE FLUSH SYRINGE 10 ML IV PRN (22:16)
[2017-06-24] MEDS ORDERED: TYLENOL PO PRN (22:16)
[2017-06-24] MEDS ORDERED: ZOFRAN IV PRN (22:16)
--- NOTE | 2017-06-24 22:19 | History and Physical Report ---
History of Present Illness Date of examination: 06/24/17 History of present illness: 52 year old man with history of hypertension, asthma comes emergency room with complaints of shortness of breath 2 days. Complains of cough productive of yellow phlegm, no fever or chills. Complains of lower back pain, use been sleeping on the floor over the last 4 months Review of systems Constitutional: no weight loss, chills Ears, eyes, nose, mouth and throat: no nasal congestion, no nasal discharge, no sinus pressure, no vision change, no red eye. Neck: No neck pain or rigidity. Cardiovascular: no chest pain, palpitations Respiratory: +No cough, shortness of breath Gastrointestinal: no abdominal pain, hematochezia Genitourinary : no dysuria, frequency , no hematuria Musculoskeletal: no joint swelling or muscle ache Integumentary: no rash, no pruritis Neurological: no parathesias, no numbness, no focal weakness Endocrine: no cold or heat intolerance, no polyuria or polydipsia Hematologic/Lymphatic: no easy bruising, no easy bleeding, no gland swelling Allergic/Immunologic: no urticaria, no angioedema. PAST MEDICAL HISTORY: Hypertension, asthma PAST SURGICAL HISTORY: None SOCIAL HISTORY: Denies alcohol, tobacco and treatment FAMILY HISTORY: Hypertension Medications and Allergies Allergies Allergy/AdvReac Type Severity Reaction Status Date / Time bee pollen Allergy Shortness Verified 08/15/14 21:50 of Breath mold Allergy Shortness Uncoded 08/15/14 21:50 of Breath Home Medications Medication Instructions Recorded Confirmed Last Taken Type Hydrochlorothiazide [HCTZ] 25 mg PO QDAY #30 tablet 11/04/16 01/18/17 Unknown Rx Lisinopril [Zestril TAB] 20 mg PO QDAY #30 tablet 11/04/16 01/18/17 Unknown Rx ALBUTEROL Inhaler [ProAir HFA 2 puff IH QID PRN #1 inhalation 01/19/17 Unknown Rx Inhaler] ALBUTEROL NEB's [Proventil 0.083% 1 dose INHALATION Q4H PRN #180 nebu 01/19/17 Unknown Rx NEBS] Levofloxacin [Levaquin TAB] 750 mg PO Q24HR #3 tablet 01/19/17 Unknown Rx Mometasone/Formoterol [Dulera 200 2 puff IH BID #1 hfa.aer.ad 01/19/17 Unknown Rx Mcg/5 Mcg Inhaler] amLODIPine [Norvasc] 10 mg PO QDAY #30 tablet 01/19/17 Unknown Rx guaiFENesin DM [Robitussin Dm] 20 ml PO Q4H PRN #1 bottle 01/19/17 Unknown Rx predniSONE [Deltasone] 10 mg PO .TAPER #48 tab 01/19/17 Unknown Rx Exam - Physical Exam Narrative exam: Gen. appearance: Patient lying in bed, no apparent distress HEENT: Normocephalic, atraumatic, pupils equally round and reactive to light, extraocular movement intact, and no sclericterus,. No JVD or thyromegaly or nodule,neck supple, no carotid bruit ,mucous membranes moist, no exudate or erythema Heart: S1, S2, regular rate and rhythm Lungs: Wheezing bilaterally, breathing comfortable Abdomen: Positive bowel sounds, nontender, nondistended, no organomegaly Extremity: No edema, cyanosis, clubbing Skin: No rash, nodules, warm, dry Neuro: Oriented 3, cranial nerves II-12 intact, speech is fluent, motor and sensory intact - Constitutional Vitals: Temp Pulse Resp BP Pulse Ox 98.1 F 102 H 20 174/107 98 06/24/17 18:26 06/24/17 21:46 06/24/17 21:48 06/24/17 21:46 06/24/17 21:48 Results - Labs CBC & Chem 7: 06/24/17 18:25 06/24/17 18:25 Labs: Abnormal lab results 06/24/17 06/24/17 06/24/17 Range/Units 18:25 18:25 18:25 Hct 45.8 H (35.5-45.6) % Lymph % (Auto) 10.6 L (13.4-35.0) % Lymph # 0.6 L (1.2-5.4) K/mm3 Seg Neutrophils % 84.8 H (40.0-70.0) % Glucose 122 H (75-100) mg/dL Total Creatine Kinase 631 H (55-170) units/L Assessment and Plan Assessment Asthma exacerbation Back pain, musculoskeletal Hypertension Plan Admit to medicine Start high-dose steroids, nebulized treatments Obtain x-ray of the back DVT prophylaxis
--- NOTE | 2017-06-24 23:18 | XRay Report ---
FINAL REPORT PROCEDURE: XR SPINE LUMBOSACRAL 2-3V TECHNIQUE: Lumbar spine radiographs, including AP, lateral, and lumbosacral spot views. CPT 17825 HISTORY: back pain COMPARISON: No prior studies are available for comparison. FINDINGS: No fracture or subluxation is visualized. Small anterior osteophytic spurs are present at the L3-4 and the L4-5 disc spaces. Disc spaces otherwise are well preserved. Posterior elements are intact. SI joints are unremarkable. IMPRESSION: Minimal degenerative disc disease as described otherwise negative exam. No acute abnormality is seen.
[2017-06-25] MEDS ORDERED: DUONEB *Not for PRN Use IH SCH (02:00)
[2017-06-25] MEDS ORDERED: GUAIFENESIN DM SYRUP PO PRN (03:13)
[2017-06-25 03:46] LABS: Hematocrit 46.3 % (35.5-45.6); Hemoglobin 15.2 gm/dl (11.8-15.2); Mean Corpuscular HGB Conc 33 % (32-34); Mean Corpuscular Hemoglobin 30 pg (28-32); Mean Corpuscular Volume 89 fl (84-94); Platelet Count 222 K/mm3 (140-440); Red Blood Count 5.17 M/mm3 (3.65-5.03)
[2017-06-25 03:58] LABS: BUN/Creatinine Ratio 19; Blood Urea Nitrogen 15 mg/dL (9-20); Calcium 8.9 mg/dL (8.4-10.2); Hemolysis Index 18
[2017-06-25] MEDS: APRESOLINE IV PRN ×2 (05:00→23:19)
[2017-06-25 05:41] LABS: Band Neutrophils # (Manual) 0.3 K/mm3; Basophils % (Manual) 0 % (0.0-1.8); Eosinophils % (Manual) 0 % (0.0-4.3); Large Platelets Rare; RBC Morphology Normal; Total Cells Counted 100
[2017-06-25] MEDS ORDERED: APRESOLINE ONE (05:41)
[2017-06-25] MEDS: PROVENTIL IH PRN (06:25)
[2017-06-25] MEDS: DUONEB *Not for PRN Use IH SCH ×3 (08:41→19:55)
[2017-06-25] MEDS: LOVENOX SUB-Q SCH (09:42)
[2017-06-25] MEDS: NORVASC PO SCH (09:42)
[2017-06-25] MEDS: SODIUM CHLORIDE FLUSH SYRINGE 10 ML IV SCH ×2 (10:00→22:18)
[2017-06-25] MEDS ORDERED: LOVENOX SUB-Q SCH (10:00)
[2017-06-25] MEDS ORDERED: NORVASC PO SCH (10:00)
--- NOTE | 2017-06-25 11:13 | Progress Note ---
Assessment and Plan Assessment and plan: Acute asthma exacerbation. Continue IV steroids, nebulizer treatments and O2 supplementation. Back pain, musculoskeletal. Continue supportive care. Plain films revealed minimal degenerative disc disease. Hypertension. Resume anti-hypertensive medications. History Interval history: No new issues overnight. Hospitalist Physical - Constitutional Vitals: Temp Pulse Resp BP Pulse Ox 97.5 F L 106 H 20 164/88 96 06/25/17 06:33 06/25/17 08:48 06/25/17 08:48 06/25/17 06:33 06/25/17 10:00 General appearance: Present: no acute distress, well-nourished - EENT Eyes: Present: PERRL, EOM intact ENT: hearing intact, clear oral mucosa, dentition normal - Neck Neck: Present: supple, normal ROM - Respiratory Respiratory effort: normal Respiratory: bilateral: diminished, rhonchi, wheezing - Cardiovascular Rhythm: regular Heart Sounds: Present: S1 & S2. Absent: gallop, rub - Extremities Extremities: no ischemia, No edema, Full ROM - Abdominal General gastrointestinal: soft, non-tender, non-distended, normal bowel sounds - Integumentary Integumentary: Present: clear, warm, dry - Neurologic Neurologic: CNII-XII intact, moves all extremities Results - Labs CBC & Chem 7: 06/25/17 03:20 06/25/17 03:20 Labs: Laboratory Last Values WBC 8.4 K/mm3 (4.5-11.0) 06/25/17 03:20 RBC 5.17 M/mm3 (3.65-5.03) H 06/25/17 03:20 Hgb 15.2 gm/dl (11.8-15.2) 06/25/17 03:20 Hct 46.3 % (35.5-45.6) H 06/25/17 03:20 MCV 89 fl (84-94) 06/25/17 03:20 MCH 30 pg (28-32) 06/25/17 03:20 MCHC 33 % (32-34) 06/25/17 03:20 RDW 14.0 % (13.2-15.2) 06/25/17 03:20 Plt Count 222 K/mm3 (140-440) 06/25/17 03:20 Lymph % (Auto) 10.6 % (13.4-35.0) L 06/24/17 18:25 Bennett % (Auto) 3.8 % (0.0-7.3) 06/24/17 18:25 Eos % (Auto) 0.4 % (0.0-4.3) 06/24/17 18:25 Baso % (Auto) 0.4 % (0.0-1.8) 06/24/17 18:25 Lymph # 0.6 K/mm3 (1.2-5.4) L 06/24/17 18:25 Bennett # 0.2 K/mm3 (0.0-0.8) 06/24/17 18:25 Eos # 0.0 K/mm3 (0.0-0.4) 06/24/17 18:25 Baso # 0.0 K/mm3 (0.0-0.1) 06/24/17 18:25 Add Manual Diff Complete 06/25/17 03:20 Total Counted 100 06/25/17 03:20 Seg Neutrophils % [employer] 06/25/17 03:20 Seg Neuts % (Manual) 87.0 % (40.0-70.0) H 06/25/17 03:20 Band Neutrophils % 3.0 % 06/25/17 03:20 Lymphocytes % (Manual) 8.0 % (13.4-35.0) L 06/25/17 03:20 Reactive Lymphs % (Man) 0 % 06/25/17 03:20 Monocytes % (Manual) 2.0 % (0.0-7.3) 06/25/17 03:20 Eosinophils % (Manual) 0 % (0.0-4.3) 06/25/17 03:20 Basophils % (Manual) 0 % (0.0-1.8) 06/25/17 03:20 Metamyelocytes % 0 % 06/25/17 03:20 Myelocytes % 0 % 06/25/17 03:20 Promyelocytes % 0 % 06/25/17 03:20 Blast Cells % 0 % 06/25/17 03:20 Nucleated RBC % Not Reportable 06/25/17 03:20 Seg Neutrophils # 5.0 K/mm3 (1.8-7.7) 06/24/17 18:25 Seg Neutrophils # Man 7.3 K/mm3 (1.8-7.7) 06/25/17 03:20 Band Neutrophils # 0.3 K/mm3 06/25/17 03:20 Lymphocytes # (Manual) 0.7 K/mm3 (1.2-5.4) L 06/25/17 03:20 Abs React Lymphs (Man) 0.0 K/mm3 06/25/17 03:20 Monocytes # (Manual) 0.2 K/mm3 (0.0-0.8) 06/25/17 03:20 Eosinophils # (Manual) 0.0 K/mm3 (0.0-0.4) 06/25/17 03:20 Basophils # (Manual) 0.0 K/mm3 (0.0-0.1) 06/25/17 03:20 Metamyelocytes # 0.0 K/mm3 06/25/17 03:20 Myelocytes # 0.0 K/mm3 06/25/17 03:20 Promyelocytes # 0.0 K/mm3 06/25/17 03:20 Blast Cells # 0.0 K/mm3 06/25/17 03:20 WBC Morphology Not Reportable 06/25/17 03:20 Hypersegmented Neuts Not Reportable 06/25/17 03:20 Hyposegmented Neuts Not Reportable 06/25/17 03:20 Hypogranular Neuts Not Reportable 06/25/17 03:20 Smudge Cells Not Reportable 06/25/17 03:20 Toxic Granulation Not Reportable 06/25/17 03:20 Toxic Vacuolation Not Reportable 06/25/17 03:20 Dohle Bodies Not Reportable 06/25/17 03:20 Pelger-Huet Anomaly Not Reportable 06/25/17 03:20 Kaiden Rods Not Reportable 06/25/17 03:20 Platelet Estimate Appears normal 06/25/17 03:20 Clumped Platelets Not Reportable 06/25/17 03:20 Plt Clumps, EDTA Not Reportable 06/25/17 03:20 Large Platelets Rare 06/25/17 03:20 Giant Platelets Not Reportable 06/25/17 03:20 Platelet Satelliting Not Reportable 06/25/17 03:20 Plt Morphology Comment Not Reportable 06/25/17 03:20 RBC Morphology Normal 06/25/17 03:20 Dimorphic RBCs Not Reportable 06/25/17 03:20 Polychromasia Not Reportable 06/25/17 03:20 Hypochromasia Not Reportable 06/25/17 03:20 Poikilocytosis Not Reportable 06/25/17 03:20 Anisocytosis Not Reportable 06/25/17 03:20 Microcytosis Not Reportable 06/25/17 03:20 Macrocytosis Not Reportable 06/25/17 03:20 Spherocytes Not Reportable 06/25/17 03:20 Pappenheimer Bodies Not Reportable 06/25/17 03:20 Sickle Cells Not Reportable 06/25/17 03:20 Target Cells Not Reportable 06/25/17 03:20 Tear Drop Cells Not Reportable 06/25/17 03:20 Ovalocytes Not Reportable 06/25/17 03:20 Helmet Cells Not Reportable 06/25/17 03:20 [place] Bodies Not Reportable 06/25/17 03:20 [place] Rings Not Reportable 06/25/17 03:20 [place] Cells Not Reportable 06/25/17 03:20 Bite Cells Not Reportable 06/25/17 03:20 Crenated Cell Not Reportable 06/25/17 03:20 Elliptocytes Not Reportable 06/25/17 03:20 Acanthocytes (Spur) Not Reportable 06/25/17 03:20 Rouleaux Not Reportable 06/25/17 03:20 Hemoglobin C Crystals Not Reportable 06/25/17 03:20 Schistocytes Not Reportable 06/25/17 03:20 Malaria parasites Not Reportable 06/25/17 03:20 Travis Bodies Not Reportable 06/25/17 03:20 Hem Pathologist Commnt No 06/25/17 03:20 Sodium 139 mmol/L (137-145) 06/25/17 03:20 Potassium 4.3 mmol/L (3.6-5.0) 06/25/17 03:20 Chloride 99.7 mmol/L (98-107) 06/25/17 03:20 Carbon Dioxide 24 mmol/L (22-30) 06/25/17 03:20 Anion Gap 20 mmol/L 06/25/17 03:20 BUN 15 mg/dL (9-20) 06/25/17 03:20 Creatinine 0.8 mg/dL (0.8-1.5) 06/25/17 03:20 Estimated GFR > 60 ml/min 06/25/17 03:20 BUN/Creatinine Ratio 19 % 06/25/17 03:20 Glucose 229 mg/dL (75-100) H 06/25/17 03:20 Calcium 8.9 mg/dL (8.4-10.2) 06/25/17 03:20 Total Creatine Kinase 631 units/L (55-170) H 06/24/17 18:25 Urine Opiates Screen Presumptive negative 06/24/17 21:38 Urine Methadone Screen Presumptive negative 06/24/17 21:38 Ur Barbiturates Screen Presumptive negative 06/24/17 21:38 Ur Phencyclidine Scrn Presumptive negative 06/24/17 21:38 Ur Amphetamines Screen Presumptive negative 06/24/17 21:38 U Benzodiazepines Scrn Presumptive negative 06/24/17 21:38 Urine Cocaine Screen Presumptive positive 06/24/17 21:38 U Marijuana (THC) Screen Presumptive negative 06/24/17 21:38 Drugs of Abuse Note Disclamer 06/24/17 21:38
[2017-06-25] MEDS: PERCOCET 5/325 PO PRN ×2 (12:24→18:50)
[2017-06-26] MEDS: PERCOCET 5/325 PO PRN ×2 (00:38→08:22)
[2017-06-26] MEDS: PROVENTIL IH PRN (05:26)
[2017-06-26] MEDS: DUONEB *Not for PRN Use IH SCH ×2 (07:50→13:02)
--- NOTE | 2017-06-26 08:53 | Discharge Summary ---
Providers - Providers Date of Admission: 06/24/17 22:16 Date of discharge: 06/27/17 Attending physician: KATLIN STAHL Primary care physician: DENILSON VILLARREAL MD Hospitalization Reason for admission: asthma exac Condition: Stable Hospital course: This is a 52-year-old male with significant past medical history of hypertension and asthma who presented to the emergency room with chief complaint dyspnea. Patient was admitted with a diagnosis of acute hypoxemic respiratory failure and acute asthma exacerbation. Patient received treatments with IV steroids and nebulizers with significant improvement. Patient did not meet inpatient criteria and was listed and admitted under observation. Patient will be discharged home and has a follow-up with PCP. Dedicated discharge time 32 minutes. Disposition: DC-01 TO HOME OR SELFCARE Time spent for discharge: 32 - Discharge Diagnoses (1) Acute asthma exacerbation Status: Acute (2) Acute bronchitis with asthma Status: Acute (3) HTN (hypertension) Status: Acute Core Measure Documentation - Palliative Care Palliative Care/ Comfort Measures: Not Applicable - Core Measures Any of the following diagnoses?: none Exam - Constitutional Vitals: Temp Pulse Resp BP Pulse Ox 97.8 F 93 H 18 162/105 96 06/26/17 08:01 06/26/17 08:01 06/26/17 08:22 06/26/17 08:01 06/26/17 08:01 General appearance: Present: no acute distress, well-nourished - EENT Eyes: Present: PERRL ENT: hearing intact, clear oral mucosa - Neck Neck: Present: supple, normal ROM - Respiratory Respiratory effort: normal Respiratory: bilateral: CTA - Cardiovascular Heart Sounds: Present: S1 & S2. Absent: rub, click - Extremities Extremities: pulses symmetrical, No edema Peripheral Pulses: within normal limits - Abdominal General gastrointestinal: Present: soft, non-tender, non-distended, normal bowel sounds Male genitourinary: Present: normal - Integumentary Integumentary: Present: clear, warm, dry - Musculoskeletal Musculoskeletal: gait normal, strength equal bilaterally - Psychiatric Psychiatric: appropriate mood/affect, intact judgment & insight - Neurologic Neurologic: CNII-XII intact, moves all extremities Plan Activity: no restrictions Weight Bearing Status: Full Weight Bearing Diet: regular Follow up with: PRIMARY CARE, [Primary Care Provider] - 3-5 Days Prescriptions: ALBUTEROL Inhaler [ProAir HFA Inhaler] 2 puff IH QID PRN #1 inhalation PRN Reason: WHEEZING AND COUGH ALBUTEROL NEB's [Proventil 0.083% NEBS] 1 dose INHALATION Q4H PRN #180 nebu PRN Reason: Shortness Of Breath amLODIPine [Norvasc] 10 mg PO QDAY #30 tablet Hydrochlorothiazide [HCTZ] 25 mg PO QDAY #30 tablet Levofloxacin [Levaquin TAB] 750 mg PO Q24HR #3 tablet Lisinopril [Zestril TAB] 20 mg PO QDAY #30 tablet Mometasone/Formoterol [Dulera 200 Mcg/5 Mcg Inhaler] 2 puff IH BID #1 hfa.aer.ad predniSONE [Deltasone] 10 mg PO .TAPER #48 tab
--- NOTE | 2017-06-26 11:12 | Progress Note ---
Assessment and Plan Assessment and plan: Acute asthma exacerbation. Continue IV steroids, nebulizer treatments and O2 supplementation. Back pain, musculoskeletal. Continue supportive care. Plain films revealed minimal degenerative disc disease. Accelerated Hypertension. Continue home medication of Norvasc. Add hydralazine 3 times a day. - Patient Problems (1) Acute asthma exacerbation Current Visit: Yes Status: Acute (2) Acute bronchitis with asthma Current Visit: Yes Status: Acute (3) HTN (hypertension) Current Visit: Yes Status: Acute History Interval history: Patient still with significant dyspnea and wheezing this morning. Hospitalist Physical - Constitutional Vitals: Temp Pulse Resp BP Pulse Ox 97.8 F 93 H 18 162/105 96 06/26/17 08:01 06/26/17 08:01 06/26/17 08:22 06/26/17 08:01 06/26/17 08:01 General appearance: Present: no acute distress, well-nourished - EENT Eyes: Present: PERRL, EOM intact ENT: hearing intact, clear oral mucosa, dentition normal - Neck Neck: Present: supple, normal ROM - Respiratory Respiratory effort: normal Respiratory: bilateral: diminished, rhonchi, wheezing - Cardiovascular Rhythm: regular Heart Sounds: Present: S1 & S2. Absent: gallop, rub - Extremities Extremities: no ischemia, No edema, Full ROM - Abdominal General gastrointestinal: soft, non-tender, non-distended, normal bowel sounds - Integumentary Integumentary: Present: clear, warm, dry - Neurologic Neurologic: CNII-XII intact, moves all extremities Results - Labs CBC & Chem 7: 06/25/17 03:20 06/25/17 03:20 Labs: Laboratory Last Values WBC 8.4 K/mm3 (4.5-11.0) 06/25/17 03:20 RBC 5.17 M/mm3 (3.65-5.03) H 06/25/17 03:20 Hgb 15.2 gm/dl (11.8-15.2) 06/25/17 03:20 Hct 46.3 % (35.5-45.6) H 06/25/17 03:20 MCV 89 fl (84-94) 06/25/17 03:20 MCH 30 pg (28-32) 06/25/17 03:20 MCHC 33 % (32-34) 06/25/17 03:20 RDW 14.0 % (13.2-15.2) 06/25/17 03:20 Plt Count 222 K/mm3 (140-440) 06/25/17 03:20 Lymph % (Auto) 10.6 % (13.4-35.0) L 06/24/17 18:25 [place] % (Auto) 3.8 % (0.0-7.3) 06/24/17 18:25 Eos % (Auto) 0.4 % (0.0-4.3) 06/24/17 18:25 Baso % (Auto) 0.4 % (0.0-1.8) 06/24/17 18:25 Lymph # 0.6 K/mm3 (1.2-5.4) L 06/24/17 18:25 [place] # 0.2 K/mm3 (0.0-0.8) 06/24/17 18:25 Eos # 0.0 K/mm3 (0.0-0.4) 06/24/17 18:25 Baso # 0.0 K/mm3 (0.0-0.1) 06/24/17 18:25 Add Manual Diff Complete 06/25/17 03:20 Total Counted 100 06/25/17 03:20 Seg Neutrophils % Conveyor Technician 06/25/17 03:20 Seg Neuts % (Manual) 87.0 % (40.0-70.0) H 06/25/17 03:20 Band Neutrophils % 3.0 % 06/25/17 03:20 Lymphocytes % (Manual) 8.0 % (13.4-35.0) L 06/25/17 03:20 Reactive Lymphs % (Man) 0 % 06/25/17 03:20 Monocytes % (Manual) 2.0 % (0.0-7.3) 06/25/17 03:20 Eosinophils % (Manual) 0 % (0.0-4.3) 06/25/17 03:20 Basophils % (Manual) 0 % (0.0-1.8) 06/25/17 03:20 Metamyelocytes % 0 % 06/25/17 03:20 Myelocytes % 0 % 06/25/17 03:20 Promyelocytes % 0 % 06/25/17 03:20 Blast Cells % 0 % 06/25/17 03:20 Nucleated RBC % Not Reportable 06/25/17 03:20 Seg Neutrophils # 5.0 K/mm3 (1.8-7.7) 06/24/17 18:25 Seg Neutrophils # Man 7.3 K/mm3 (1.8-7.7) 06/25/17 03:20 Band Neutrophils # 0.3 K/mm3 06/25/17 03:20 Lymphocytes # (Manual) 0.7 K/mm3 (1.2-5.4) L 06/25/17 03:20 Abs React Lymphs (Man) 0.0 K/mm3 06/25/17 03:20 Monocytes # (Manual) 0.2 K/mm3 (0.0-0.8) 06/25/17 03:20 Eosinophils # (Manual) 0.0 K/mm3 (0.0-0.4) 06/25/17 03:20 Basophils # (Manual) 0.0 K/mm3 (0.0-0.1) 06/25/17 03:20 Metamyelocytes # 0.0 K/mm3 06/25/17 03:20 Myelocytes # 0.0 K/mm3 06/25/17 03:20 Promyelocytes # 0.0 K/mm3 06/25/17 03:20 Blast Cells # 0.0 K/mm3 06/25/17 03:20 WBC Morphology Not Reportable 06/25/17 03:20 Hypersegmented Neuts Not Reportable 06/25/17 03:20 Hyposegmented Neuts Not Reportable 06/25/17 03:20 Hypogranular Neuts Not Reportable 06/25/17 03:20 Smudge Cells Not Reportable 06/25/17 03:20 Toxic Granulation Not Reportable 06/25/17 03:20 Toxic Vacuolation Not Reportable 06/25/17 03:20 Dohle Bodies Not Reportable 06/25/17 03:20 Pelger-Huet Anomaly Not Reportable 06/25/17 03:20 Kaiden Rods Not Reportable 06/25/17 03:20 Platelet Estimate Appears normal 06/25/17 03:20 Clumped Platelets Not Reportable 06/25/17 03:20 Plt Clumps, EDTA Not Reportable 06/25/17 03:20 Large Platelets Rare 06/25/17 03:20 Giant Platelets Not Reportable 06/25/17 03:20 Platelet Satelliting Not Reportable 06/25/17 03:20 Plt Morphology Comment Not Reportable 06/25/17 03:20 RBC Morphology Normal 06/25/17 03:20 Dimorphic RBCs Not Reportable 06/25/17 03:20 Polychromasia Not Reportable 06/25/17 03:20 Hypochromasia Not Reportable 06/25/17 03:20 Poikilocytosis Not Reportable 06/25/17 03:20 Anisocytosis Not Reportable 06/25/17 03:20 Microcytosis Not Reportable 06/25/17 03:20 Macrocytosis Not Reportable 06/25/17 03:20 Spherocytes Not Reportable 06/25/17 03:20 Pappenheimer Bodies Not Reportable 06/25/17 03:20 Sickle Cells Not Reportable 06/25/17 03:20 Target Cells Not Reportable 06/25/17 03:20 Tear Drop Cells Not Reportable 06/25/17 03:20 Ovalocytes Not Reportable 06/25/17 03:20 Helmet Cells Not Reportable 06/25/17 03:20 [place] Bodies Not Reportable 06/25/17 03:20 [place] Rings Not Reportable 06/25/17 03:20 [place] Cells Not Reportable 06/25/17 03:20 Bite Cells Not Reportable 06/25/17 03:20 Crenated Cell Not Reportable 06/25/17 03:20 Elliptocytes Not Reportable 06/25/17 03:20 Acanthocytes (Spur) Not Reportable 06/25/17 03:20 Rouleaux Not Reportable 06/25/17 03:20 Hemoglobin C Crystals Not Reportable 06/25/17 03:20 Schistocytes Not Reportable 06/25/17 03:20 Malaria parasites Not Reportable 06/25/17 03:20 [place] Bodies Not Reportable 06/25/17 03:20 Hem Pathologist Commnt No 06/25/17 03:20 Sodium 139 mmol/L (137-145) 06/25/17 03:20 Potassium 4.3 mmol/L (3.6-5.0) 06/25/17 03:20 Chloride 99.7 mmol/L (98-107) 06/25/17 03:20 Carbon Dioxide 24 mmol/L (22-30) 06/25/17 03:20 Anion Gap 20 mmol/L 06/25/17 03:20 BUN 15 mg/dL (9-20) 06/25/17 03:20 Creatinine 0.8 mg/dL (0.8-1.5) 06/25/17 03:20 Estimated GFR > 60 ml/min 06/25/17 03:20 BUN/Creatinine Ratio 19 % 06/25/17 03:20 Glucose 229 mg/dL (75-100) H 06/25/17 03:20 Calcium 8.9 mg/dL (8.4-10.2) 06/25/17 03:20 Total Creatine Kinase 631 units/L (55-170) H 06/24/17 18:25 Urine Opiates Screen Presumptive negative 06/24/17 21:38 Urine Methadone Screen Presumptive negative 06/24/17 21:38 Ur Barbiturates Screen Presumptive negative 06/24/17 21:38 Ur Phencyclidine Scrn Presumptive negative 06/24/17 21:38 Ur Amphetamines Screen Presumptive negative 06/24/17 21:38 U Benzodiazepines Scrn Presumptive negative 06/24/17 21:38 Urine Cocaine Screen Presumptive positive 06/24/17 21:38 U Marijuana (THC) Screen Presumptive negative 06/24/17 21:38 Drugs of Abuse Note Disclamer 06/24/17 21:38
[2017-06-26] MEDS: LOVENOX SUB-Q SCH (11:22)
[2017-06-26] MEDS: NORVASC PO SCH (11:22)
[2017-06-26] MEDS: SODIUM CHLORIDE FLUSH SYRINGE 10 ML IV SCH (11:27)
[2017-06-26] MEDS ORDERED: MAGNESIUM SULFATE 2GM/50ML 2 GM/50 ML BAG IV ONE (13:00)
[2017-06-26] MEDS ORDERED: APRESOLINE PO SCH (14:00)
[2017-06-26 14:23] VITALS: BP 159/89
== END 2017-06-26 15:15 | disposition home or self-care (01) ==
LOC: ED 18:05 → INTOOBSV 22:16 → 3A 22:16
PROVIDERS: ADMIT Internal Medicine; ATTEND Hospitalist
DX: J45.901 Unspecified asthma with (acute) exacerbation (principal); I10 Essential (primary) hypertension; M54.9 Dorsalgia, unspecified
CPT/HCPCS: 36415; 71045; 72100; 80048; 80307; 82550; 85007; 85025; 93005; 93010; 94640; 94760; 96365; 96366; 96372; 96375; 96376; 99285; G0378; J0360; J1650; J2930; J3475

== ENCOUNTER 2018-10-19 12:08 | Inpatient (IN) | payer MEDICAID ==
[2018-10-19] MEDS ORDERED: ATROVENT IH ONE (12:19)
[2018-10-19] MEDS ORDERED: PROVENTIL IH ONE ×3 (12:19→19:56)
[2018-10-19] MEDS ORDERED: NACL 0.9% 500 ML 500 ML IV ONE (12:55)
[2018-10-19] MEDS ORDERED: MAGNESIUM SULFATE 2GM/50ML 2 GM/50 ML BAG IV ONE (12:55)
[2018-10-19] MEDS ORDERED: ADRENALINE P/F SUB-Q ONE ×3 (12:56→14:09)
[2018-10-19] MEDS ORDERED: SOLU-Medrol IV ONE (12:56)
--- NOTE | 2018-10-19 13:01 | Emergency Department Report ---
ED Asthma HPI - General Chief Complaint: Adult Asthma Stated Complaint: ASHLEY Time Seen by Provider: 10/19/18 12:42 Source: patient, RN notes reviewed, old records reviewed Mode of arrival: Ambulatory Limitations: No Limitations - History of Present Illness Initial Comments: This is a 53-year-old gentleman. The patient is not known to this provider previously. His past medical history includes asthma and hypertension. He reports multiple lifetime hospitalizations. He denies history of intubation. Adult onset diagnosis of asthma. He reports that he takes a few maintenance medications, but can't recall the names of the medications. He thinks that he takes Symbicort. He presents to the ER today with a complaint of cough, wheezing, chest wall discomfort, shortness of breath. Symptoms constant, did not radiate anywhere, worse with physical exertion and decreased with rest. He denies DVT, pulmonary embolism risk factors. Triggers include cough, cold weather, hot weather, change of seasons, seasonal allergies. He feels like this feels similar to prior episodes of asthma exacerbations. He does not smoke cigarettes, but reports multiple people around him smoke cigarettes. MD Complaint: "asthma attack", shortness of breath, wheezing -: Gradual Asthma History: adult onset, history of frequent attac, history of prior ED visit Severity: moderate Associated Symptoms: dry cough - Related Data Previous Rx's Medication Instructions Recorded Last Taken Type guaiFENesin DM [Robitussin Dm] 20 ml PO Q4H PRN #1 bottle 01/19/17 Unknown Rx Lisinopril [Zestril TAB] 20 mg PO QDAY #30 tablet 06/26/17 Unknown Rx Mometasone/Formoterol [Dulera 200 2 puff IH BID #1 hfa.aer.ad 06/26/17 Unknown Rx Mcg/5 Mcg Inhaler] amLODIPine [Norvasc] 10 mg PO QDAY #30 tablet 06/26/17 Unknown Rx hydroCHLOROthiazide [HCTZ] 25 mg PO QDAY #30 tablet 06/26/17 Unknown Rx levoFLOXacin [Levaquin TAB] 750 mg PO Q24HR #3 tablet 06/26/17 Unknown Rx ALBUTEROL Inhaler (OR & NICU) 2 puff IH QID PRN #1 inhalation 10/19/18 Unknown Rx [ProAir HFA Inhaler] ALBUTEROL NEB's [Proventil 0.083% 1 dose INHALATION Q4H PRN #180 nebu 10/19/18 Unknown Rx NEBS] predniSONE [Deltasone] 10 mg PO .TAPER #48 tab 10/19/18 Unknown Rx Allergies Allergy/AdvReac Type Severity Reaction Status Date / Time bee pollen Allergy Shortness Verified 10/19/18 12:23 of Breath mold Allergy Shortness Uncoded 08/15/14 21:50 of Breath ED Review of Systems ROS: Stated complaint: ASHLEY Other details as noted in HPI Constitutional: denies: fever Eyes: denies: eye discharge ENT: congestion Respiratory: shortness of breath, wheezing Cardiovascular: denies: syncope Gastrointestinal: denies: nausea, vomiting Genitourinary: denies: dysuria Musculoskeletal: denies: back pain Skin: denies: lesions Neurological: denies: weakness ED Past Medical Hx - Past Medical History Hx Hypertension: Yes Hx Congestive Heart Failure: No Hx Diabetes: No Hx Asthma: Yes Hx COPD: No - Surgical History Past Surgical History?: No - Social History Smoking Status: Never Smoker Substance Use Type: None - Medications Home Medications: Home Medications Medication Instructions Recorded Confirmed Last Taken Type guaiFENesin DM [Robitussin Dm] 20 ml PO Q4H PRN #1 bottle 01/19/17 Unknown Rx Lisinopril [Zestril TAB] 20 mg PO QDAY #30 tablet 06/26/17 Unknown Rx Mometasone/Formoterol [Dulera 200 2 puff IH BID #1 hfa.aer.ad 06/26/17 Unknown Rx Mcg/5 Mcg Inhaler] amLODIPine [Norvasc] 10 mg PO QDAY #30 tablet 06/26/17 Unknown Rx hydroCHLOROthiazide [HCTZ] 25 mg PO QDAY #30 tablet 06/26/17 Unknown Rx levoFLOXacin [Levaquin TAB] 750 mg PO Q24HR #3 tablet 06/26/17 Unknown Rx ALBUTEROL Inhaler (OR & NICU) 2 puff IH QID PRN #1 inhalation 10/19/18 Unknown Rx [ProAir HFA Inhaler] ALBUTEROL NEB's [Proventil 0.083% 1 dose INHALATION Q4H PRN #180 nebu 10/19/18 Unknown Rx NEBS] predniSONE [Deltasone] 10 mg PO .TAPER #48 tab 10/19/18 Unknown Rx ED Physical Exam - General Limitations: No Limitations General appearance: alert, in no apparent distress, other (patient noted to be playing and texting on a cellular phone) - Head Head exam: Present: atraumatic, normocephalic - Eye Eye exam: Present: normal appearance, EOMI - ENT ENT exam: Present: normal exam, normal orophraynx, mucous membranes moist, patrica l external ear exam - Neck Neck exam: Present: normal inspection, full ROM. Absent: tenderness, meningismus - Respiratory Respiratory exam: Present: respiratory distress, wheezes, rhonchi - Cardiovascular Cardiovascular Exam: Present: regular rate, normal rhythm, normal heart sounds. Absent: bradycardia, tachycardia, irregular rhythm, systolic murmur, diastolic murmur, rubs, gallop - GI/Abdominal GI/Abdominal exam: Present: soft. Absent: distended, tenderness, guarding, rebound, rigid, pulsatile mass - Rectal Rectal exam: Present: deferred - Extremities Exam Extremities exam: Present: normal inspection, full ROM, other (2+ pulses noted in the bilateral upper, lower extremities. Compartments soft. No long bony tenderness. The pelvis is stable.). Absent: pedal edema, joint swelling, calf tenderness - Back Exam Back exam: Present: normal inspection, full ROM. Absent: tenderness, CVA tenderness (R), CVA tenderness (L), paraspinal tenderness, vertebral tenderness - Neurological Exam Neurological exam: Present: alert, oriented X3, other (Extraocular movements intact. Tongue midline. No facial droop. Facial sensation intact to light touch in the V1, V2, V3 distribution bilaterally. 5 and 5 strength in 4 extremities.. Sensation is intact to light touch in 4 extremities.). Absent: motor sensory deficit - Psychiatric Psychiatric exam: Present: normal affect, normal mood - Skin Skin exam: Present: warm, dry, intact, normal color. Absent: rash ED Course Vital Signs 10/19/18 10/19/18 10/19/18 12:17 12:20 12:30 Temperature 97.7 F Pulse Rate 86 70 Pulse Rate [ Bilateral Upper Lobe] Respiratory 24 18 Rate Respiratory Rate [Bilateral Upper Lobe] Blood Pressure 146/89 146/89 Blood Pressure 155/102 [Right] O2 Sat by Pulse 96 95 98 Oximetry 10/19/18 10/19/18 10/19/18 12:46 12:49 13:00 Temperature Pulse Rate 71 67 Pulse Rate [ 85 Bilateral Upper Lobe] Respiratory 16 15 Rate Respiratory 20 Rate [Bilateral Upper Lobe] Blood Pressure 171/102 153/102 Blood Pressure [Right] O2 Sat by Pulse 97 97 Oximetry 10/19/18 10/19/18 10/19/18 13:16 13:30 13:46 Temperature Pulse Rate 68 69 94 H Pulse Rate [ Bilateral Upper Lobe] Respiratory 15 17 23 Rate Respiratory Rate [Bilateral Upper Lobe] Blood Pressure 185/126 185/126 158/113 Blood Pressure [Right] O2 Sat by Pulse 96 98 93 Oximetry 10/19/18 10/19/18 10/19/18 14:00 14:16 14:30 Temperature Pulse Rate 75 80 66 Pulse Rate [ Bilateral Upper Lobe] Respiratory 21 18 20 Rate Respiratory Rate [Bilateral Upper Lobe] Blood Pressure 167/119 165/117 155/92 Blood Pressure [Right] O2 Sat by Pulse 86 98 Oximetry 10/19/18 10/19/18 10/19/18 14:45 14:59 15:00 Temperature Pulse Rate 64 68 Pulse Rate [ 74 Bilateral Upper Lobe] Respiratory 21 21 Rate Respiratory 20 Rate [Bilateral Upper Lobe] Blood Pressure 165/87 167/88 Blood Pressure [Right] O2 Sat by Pulse 97 96 Oximetry 10/19/18 10/19/18 15:15 15:30 Temperature Pulse Rate 66 Pulse Rate [ Bilateral Upper Lobe] Respiratory 21 Rate Respiratory Rate [Bilateral Upper Lobe] Blood Pressure 168/94 178/103 Blood Pressure [Right] O2 Sat by Pulse 95 91 Oximetry - Reevaluation(s) Reevaluation #1: 10/19/18 13:30 Differential diagnosis, including but not limited to: Asthma, bronchitis, pneumonia, costochondritis Assessment and plan: 53-year-old gentleman with probable asthma exacerbation. He endorses no pulmonary embolism or DVT risk factors and he is low risk by well's criteria. He is not tachycardic and he is not hypoxic. He is playing on the mobile cellular phone device. He appears to be quite comfortable. However, he is wheezing impressively. We will treat with albuterol, Atrovent, steroids, magnesium, IV fluids, and subcutaneous epinephrine. We will reassess after his data points are resulted. Reevaluation #2: 10/19/18 14:10 Patient wheezing, although wheezing improved. On reassessment, he is watching videos on his cell phone, and no acute distress. Additional albuterol and epinephrine ordered. Vital signs remained stable and unremarkable. Reevaluation #3: 10/19/18 15:17 Patient resting comfortably in stretcher, and in no acute distress. Work of breathing remains unremarkable. Saturating at 100%. Nursing he notes that during the reassessments, the patient seems to exaggerate his wheezing. This is my experience as well. Currently, the patient is sleeping, and not in any acute distress. Reevaluation #4: 10/19/18 15:39 patient given trial of ambulation desaturated to 83% on room air, and into the low 90s. Patient was quite symptomatic. In spite of optimal and aggressive ER therapy, patient still symptomatic, wheezing and short of breath. The Hospital physician, Dr. Suad shay will admit ED Medical Decision Making - Lab Data Vital Signs 10/19/18 10/19/18 10/19/18 12:17 12:20 12:49 Temperature 97.7 F Pulse Rate 86 Pulse Rate [ 85 Bilateral Upper Lobe] Respiratory 24 Rate Respiratory 20 Rate [Bilateral Upper Lobe] Blood Pressure 146/89 Blood Pressure 155/102 [Right] O2 Sat by Pulse 96 95 Oximetry - EKG Data -: EKG Interpreted by Me EKG shows normal: sinus rhythm Rate: normal - EKG Data Interpretation: normal EKG 10/19/18 13:31 This is a normal sinus rhythm, 71 bpm, normal axis, QTC prolonged, high left ventricular voltage, the EKG is not consistent with ST elevation myocardial infarction. - Radiology Data Radiology results: image reviewed interpreted by me: X-ray of the chest is negative for acute disease Print Report Referring Physician: LEATHA VILLASEÑOR Patient Name: NAIF GOETZ Date of : 1965 Sex: Male Report Date: 2018-10-19 Report Status: Finalized Findings [facility] [address] [place] [address] XRay Report Signed Patient: NAIF GOETZ MR#: [id number] : 1965 Acct:[id number] Age/Sex: 53 / M ADM Date: 10/19/18 Loc: ED Attending Dr: Ordering Physician: LEATHA VILLASEÑOR MD Date of Service: 10/19/18 Procedure(s): XR chest 1V ap Accession Number(s): [id number] cc: LEATHA VILLASEÑOR MD Fluoro Time In Minutes: CHEST 1 VIEW INDICATION: Cough, wheezing, shortness of breath. COMPARISON: FINDINGS: Support devices: None. Heart: Within normal limits. Lungs/Pleura: No acute air space or interstitial disease. Additional findings: None. IMPRESSION: No acute findings. Signer Name: Nas Paredes Jr, MD Signed: 10/19/2018 1:43 PM Workstation Name: [id number] Transcribed By: TTR Dictated By: NAS PAREDES JR, MD Electronically Authenticated By: NAS PAREDES JR, MD Signed Date/Time: 10/19/18 134 Critical Care Time: Yes Critical care time in (mins) excluding proc time.: 35 Critical care attestation.: If time is entered above; I have spent that time in minutes in the direct care of this critically ill patient, excluding procedure time. ED Disposition Clinical Impression: Acute asthma exacerbation Qualifiers: Asthma severity: moderate Asthma persistence: unspecified Qualified Code(s): J45.901 - Unspecified asthma with (acute) exacerbation Disposition: -09 OP ADMIT IP TO THIS HOSP Is pt being admited?: Yes Does the pt Need Aspirin: No Condition: Good Instructions: Asthma (ED) Additional Instructions: Take medications as directed. Follow up with the primary care doctor or per diem physical therapist within the next 7-10 days. Avoid secondhand exposure to smoke and cannabis/marijuana. Take Tylenol [id number] as needed for pain. Return to the emergency room right away with new, worsening or different symptoms, projectile vomiting, change in mental status, confusion, inability to tolerate liquid feeds, new, worsening or different symptoms not present on the initial emergency room evaluation. Prescriptions: predniSONE [Deltasone] 10 mg PO .TAPER #48 tab ALBUTEROL Inhaler (OR & NICU) [ProAir HFA Inhaler] 2 puff IH QID PRN #1 inhalation PRN Reason: WHEEZING AND COUGH ALBUTEROL NEB's [Proventil 0.083% NEBS] 1 dose INHALATION Q4H PRN #180 nebu PRN Reason: Shortness Of Breath Referrals: LAWRENCE GILLILANDAZALEA MD RUBY [Primary Care Provider] - 3-5 Days MAIK WIN MD [Staff Physician] - 3-5 Days SHONA PEREZ MD [Staff Physician] - 3-5 Days
[2018-10-19] MEDS: SOLU-Medrol IV ONE ×2 (13:21→13:22)
--- NOTE | 2018-10-19 13:47 | XRay Report ---
CHEST 1 VIEW INDICATION: Cough, wheezing, shortness of breath. COMPARISON: FINDINGS: Support devices: None. Heart: Within normal limits. Lungs/Pleura: No acute air space or interstitial disease. Additional findings: None. IMPRESSION: No acute findings. Signer Name: Nas Paredes Jr, MD Signed: 10/19/2018 1:43 PM Workstation Name: [id number]
[2018-10-19] MEDS ORDERED: SODIUM CHLORIDE FLUSH SYRINGE 10 ML IV PRN (20:00)
[2018-10-19] MEDS ORDERED: PERCOCET 5/325 PO PRN (20:00)
[2018-10-19] MEDS ORDERED: TYLENOL PO PRN (20:00)
[2018-10-19] MEDS ORDERED: DILAUDID IV PRN (20:00)
[2018-10-19] MEDS ORDERED: ZOFRAN IV PRN (20:00)
[2018-10-19] MEDS ORDERED: PROVENTIL IH PRN (20:03)
[2018-10-19] MEDS: PULMICORT IH SCH (20:15)
[2018-10-19] MEDS ORDERED: ATIVAN IV PRN ×2 (20:22→20:26)
[2018-10-19] MEDS: NACL 0.9% 1000 ML 1,000 ML IV SCH (20:56)
[2018-10-19] MEDS: LEVAQUIN 750MG/150ML 750 MG/150 ML BAG IV SCH ×2 (20:56→21:40)
[2018-10-19] MEDS: SODIUM CHLORIDE FLUSH SYRINGE 10 ML IV SCH ×2 (20:57→21:41)
[2018-10-19] MEDS: SOLU-Medrol IV SCH ×2 (20:57→21:41)
[2018-10-19] MEDS: SINGULAIR PO SCH (22:24)
[2018-10-20] MEDS: SOLU-Medrol IV SCH ×3 (05:26→23:26)
--- NOTE | 2018-10-20 07:21 | History and Physical Report ---
History of Present Illness Date of examination: 10/19/18 Date of admission: 10/19/18 15:41 Chief complaint: Severe wheezing and SOB for 1 day History of present illness: 53-year-old AAF with past medical history of asthma and hypertension with multiple lifetime hospitalizations and no intubations comed in for complaints of cough, wheezing, chest wall discomfort, shortness of breath. Symptoms constant , worse with physical exertion and decreased with rest. He denies DVT, pulmonary embolism risk factors. Triggers include cough, cold weather, hot weather, change of seasons, seasonal allergies. He feels like this feels similar to prior episodes of asthma exacerbations. He does not smoke cigarettes, but reports multiple people around him smoke cigarettes. Past Medical History Hypertension: Yes Asthma: Yes Surgical History Past Surgical History?: No Social History Smoking Status: Never Smoker Substance Use Type: None Family History HTN Medications Home Medications: Home Medications Medication Instructions Recorded Confirmed Last Taken Type guaiFENesin DM [Robitussin Dm] 20 ml PO Q4H PRN #1 bottle 01/19/17 Unknown Rx Lisinopril [Zestril TAB] 20 mg PO QDAY #30 tablet 06/26/17 Unknown Rx Mometasone/Formoterol [Dulera 200 2 puff IH BID #1 hfa.aer.ad 06/26/17 Unknown Rx Mcg/5 Mcg Inhaler] amLODIPine [Norvasc] 10 mg PO QDAY #30 tablet 06/26/17 Unknown Rx hydroCHLOROthiazide [HCTZ] 25 mg PO QDAY #30 tablet 06/26/17 Unknown Rx levoFLOXacin [Levaquin TAB] 750 mg PO Q24HR #3 tablet 06/26/17 Unknown Rx ALBUTEROL Inhaler (OR & NICU) 2 puff IH QID PRN #1 inhalation 10/19/18 Unknown Rx [ProAir HFA Inhaler] ALBUTEROL NEB's [Proventil 0.083% 1 dose INHALATION Q4H PRN #180 nebu 10/19/18 Unknown Rx NEBS] predniSONE [Deltasone] 10 mg PO .TAPER #48 tab 10/19/18 Unknown Rx Review of Systems ROS: Stated complaint: ASHLEY Other details as noted in HPI Constitutional: denies: fever Eyes: denies: eye discharge ENT: congestion Respiratory: shortness of breath, wheezing Cardiovascular: denies: syncope Gastrointestinal: denies: nausea, vomiting Genitourinary: denies: dysuria Musculoskeletal: denies: back pain Skin: denies: lesions Neurological: denies: weakness Medications and Allergies Allergies Allergy/AdvReac Type Severity Reaction Status Date / Time bee pollen Allergy Shortness Verified 10/19/18 12:23 of Breath mold Allergy Shortness Uncoded 08/15/14 21:50 of Breath Home Medications Medication Instructions Recorded Confirmed Last Taken Type Lisinopril [Zestril TAB] 20 mg PO QDAY #30 tablet 06/26/17 10/19/18 10/17/18 Rx Mometasone/Formoterol [Dulera 200 2 puff IH BID #1 hfa.aer.ad 06/26/17 10/19/18 10/17/18 Rx Mcg/5 Mcg Inhaler] amLODIPine [Norvasc] 10 mg PO QDAY #30 tablet 06/26/17 10/19/18 10/17/18 Rx hydroCHLOROthiazide [HCTZ] 25 mg PO QDAY #30 tablet 06/26/17 10/19/18 10/17/18 Rx levoFLOXacin [Levaquin TAB] 750 mg PO Q24HR #3 tablet 06/26/17 10/19/18 10/17/18 Rx ALBUTEROL Inhaler (OR & NICU) 2 puff IH QID PRN #1 inhalation 10/19/18 Unknown Rx [ProAir HFA Inhaler] Active Meds: Active Medications Acetaminophen (Tylenol) 650 mg PO Q4H PRN PRN Reason: Pain MILD(1-3)/Fever >100.5/HANSON Albuterol (Proventil) 2.5 mg IH Q4HRT PRN PRN Reason: Shortness Of Breath Albuterol/Ipratropium (Duoneb *Not For Prn Use*) 1 ampul IH QIDRT LUIZ Budesonide (Pulmicort) 0.5 mg IH Q12HRT LUIZ Last Admin: 10/19/18 20:15 Dose: 0.5 mg Documented by: Hydromorphone HCl (Dilaudid) 0.5 mg IV Q3H PRN PRN Reason: Pain , Severe (7-10) Sodium Chloride (Nacl 0.9% 1000 Ml) 1,000 mls @ 42 mls/hr IV DIRECT LUIZ Last Admin: 10/19/18 20:56 Dose: 42 mls/hr Documented by: Levofloxacin/Dextrose (Levaquin 750mg/150ml) 750 mg in 150 mls @ 100 mls/hr IV Q24H [facility]; Protocol Last Admin: 10/19/18 21:40 Dose: Not Given Documented by: Lorazepam (Ativan) 1 mg IV Q6HR PRN PRN Reason: Anxiety Methylprednisolone Sodium Succinate (Solu-Medrol) 125 mg IV Q8HR [facility] Last Admin: 10/20/18 05:26 Dose: 125 mg Documented by: Montelukast Sodium (Singulair) 10 mg PO QHS [facility] Last Admin: 10/19/18 22:24 Dose: 10 mg Documented by: Ondansetron HCl (Zofran) 4 mg IV Q8H PRN PRN Reason: Nausea And Vomiting Oxycodone/Acetaminophen (Percocet 5/325) 1 tab PO Q6H PRN PRN Reason: Pain, Moderate (4-6) Sodium Chloride (Sodium Chloride Flush Syringe 10 Ml) 10 ml IV BID [facility] Last Admin: 10/19/18 21:41 Dose: Not Given Documented by: Sodium Chloride (Sodium Chloride Flush Syringe 10 Ml) 10 ml IV PRN PRN PRN Reason: LINE FLUSH Exam - Constitutional Vitals: Temp Pulse Resp BP Pulse Ox 98.7 F 78 20 148/93 94 10/20/18 05:00 10/20/18 05:00 10/20/18 05:00 10/20/18 05:00 10/20/18 05:00 General appearance: Present: no acute distress, well-nourished - EENT Eyes: Present: PERRL ENT: hearing intact, clear oral mucosa - Neck Neck: Present: supple, normal ROM - Respiratory Respiratory effort: normal Respiratory: bilateral: CTA, diminished, rhonchi, wheezing - Cardiovascular Heart rate: 78 Rhythm: regular (78) Heart Sounds: Present: S1 & S2. Absent: rub, click - Extremities Extremities: no ischemia, pulses intact, pulses symmetrical, No edema Peripheral Pulses: within normal limits - Abdominal General gastrointestinal: Present: soft, non-tender, non-distended, normal bowel sounds Male genitourinary: Present: normal - Rectal Rectal Exam: deferred - Integumentary Integumentary: Present: clear, warm, dry - Musculoskeletal Musculoskeletal: gait normal, strength equal bilaterally - Psychiatric Psychiatric: appropriate mood/affect, intact judgment & insight - Neurologic Neurologic: CNII-XII intact, moves all extremities Results - Labs Labs: Laboratory Last Values 6.1 % (4-6) H 10/19/18 20:55 - Imaging and Cardiology Chest x-ray: report reviewed (NAF) Assessment and Plan Advance Directives: Yes (Full code) VTE prophylaxis?: Chemical Plan of care discussed with patient/family: Yes - Patient Problems (1) Acute asthma exacerbation Current Visit: No Status: Acute Qualifiers: Asthma severity: severe Plan to address problem: Started on IV Solumedrol IV Levaquin and Nebulizer treatments Patient also started on Singulair (2) HTN (hypertension) Current Visit: No Status: Chronic Qualifiers: Hypertension type: essential hypertension Qualified Code(s): I10 - Essential (primary) hypertension Plan to address problem: Conrt antihypertensives (3) Acute respiratory failure Current Visit: Yes Status: Acute Qualifiers: Respiratory failure complication: hypoxia Qualified Code(s): J96.01 - Acute respiratory failure with hypoxia Plan to address problem: Started on Neb treatments and IV Solumedrol and IV abx Bipap if necessary Intubation if necessary (4) DVT prophylaxis Current Visit: No Status: Acute Plan to address problem: On Lovenox and gI prophylaxis
[2018-10-20] MEDS: PULMICORT IH SCH ×2 (08:09→20:51)
[2018-10-20] MEDS: DUONEB *Not for PRN Use IH SCH ×4 (08:09→20:52)
[2018-10-20 09:33] LABS: Hematocrit 45.9 % (35.5-45.6); Hemoglobin 15.4 gm/dl (11.8-15.2); Mean Corpuscular HGB Conc 33 % (32-34); Mean Corpuscular Volume 91 fl (84-94); Platelet Count 215 K/mm3 (140-440); Red Blood Count 5.04 M/mm3 (3.65-5.03); Red Cell Distribution Width 13.9 % (13.2-15.2)
[2018-10-20] MEDS: ZESTRIL PO SCH (09:36)
[2018-10-20] MEDS: NORVASC PO SCH (09:36)
[2018-10-20] MEDS: HCTZ PO SCH (09:36)
[2018-10-20] MEDS: SODIUM CHLORIDE FLUSH SYRINGE 10 ML IV SCH ×2 (09:37→23:27)
--- NOTE | 2018-10-20 09:37 | Progress Note ---
Assessment and Plan Assessment and plan: Acute respiratory failure admitted to med/surg oxygen by [place] Asthma exacerbation solumedrol duoneb scheduled 4 times daily Albuterol prn Hypertension. Monitor BP Obesity I counseled him on diet and exercise to lose weight Full code status History Interval history: Shortness of breath wheezing cough Hospitalist Physical - Physical exam Narrative exam: Gen: Not in acute distress, sitting up in bed, obese HEENT: Normocephalic, atraumatic Neck: supple, no JVD Heart: S1 and S2 reg, no murmurs, rubs or gallop Lungs: Bilateral rhonchi, wheezing Abd: soft, non tender, non distended, normal BS, Ext: No edema, no clubbing, no cyanosis Neuro: Awake,alert, Oriented X 3. No focal neuro signs Psych: normal mood - Constitutional Vitals: Temp Pulse Resp BP Pulse Ox 98.7 F 86 20 148/93 92 10/20/18 05:00 10/20/18 09:36 10/20/18 08:10 10/20/18 09:36 10/20/18 08:00 General appearance: Present: no acute distress, obese Results - Labs CBC & Chem 7: 10/20/18 08:00 10/20/18 08:00 Labs: Laboratory Last Values 6.1 % (4-6) H 10/19/18 20:55 Active Medications - Current Medications Current Medications: Generic Name Dose Route Start Last Admin Trade Name Freq PRN Reason Stop Dose Admin Acetaminophen 650 mg 10/19/18 20:00 Tylenol PO Q4H PRN Pain MILD(1-3)/Fever >100.5/HANSON Albuterol 2.5 mg 10/19/18 20:03 Proventil IH Q4HRT PRN Shortness Of Breath Albuterol/Ipratropium 1 ampul 10/20/18 08:00 10/20/18 08:09 Duoneb *Not For Prn Use* IH 1 ampul QIDRT LUIZ Administration Amlodipine Besylate 10 mg 10/20/18 10:00 10/20/18 09:36 Norvasc PO 10 mg DAILY LUIZ Administration Budesonide 0.5 mg 10/19/18 20:15 10/20/18 08:09 Pulmicort IH 0.5 mg Q12HRT LUIZ Administration Hydrochlorothiazide 25 mg 10/20/18 10:00 10/20/18 09:36 Hctz PO 25 mg QDAY LUIZ Administration Hydromorphone HCl 0.5 mg 10/19/18 20:00 Dilaudid IV Q3H PRN Pain , Severe (7-10) Sodium Chloride 1,000 mls @ 42 mls/hr 10/19/18 20:00 10/19/18 20:56 Nacl 0.9% 1000 Ml IV 42 mls/hr DIRECT LUIZ Administration Levofloxacin/Dextrose 750 mg in 150 mls @ 100 mls/hr 10/19/18 22:00 10/19/18 21:40 Levaquin 750mg/150ml IV Not Given Q24H LUIZ Protocol Lisinopril 20 mg 10/20/18 10:00 10/20/18 09:36 Zestril PO 20 mg QDAY LUIZ Administration Lorazepam 1 mg 10/19/18 20:26 Ativan IV Q6HR PRN Anxiety Methylprednisolone Sodium Succinate 125 mg 10/19/18 22:00 10/20/18 05:26 Solu-Medrol IV 125 mg Q8HR LUIZ Administration Miscellaneous Medication 2 puff 10/20/18 10:00 Mometasone/Formoterol [Dulera 200 Mcg/5 Mcg Inhaler] IH BID LUIZ Montelukast Sodium 10 mg 10/19/18 22:00 10/19/18 22:24 Singulair PO 10 mg QHS LUIZ Administration Ondansetron HCl 4 mg 10/19/18 20:00 Zofran IV Q8H PRN Nausea And Vomiting Oxycodone/Acetaminophen 1 tab 10/19/18 20:00 Percocet 5/325 PO Q6H PRN Pain, Moderate (4-6) Sodium Chloride 10 ml 10/19/18 22:00 10/20/18 09:37 Sodium Chloride Flush Syringe 10 Ml IV 10 ml BID LUIZ Administration Sodium Chloride 10 ml 10/19/18 20:00 Sodium Chloride Flush Syringe 10 Ml IV PRN PRN LINE FLUSH
[2018-10-20] MEDS ORDERED: NON-FORMULARY (Mometasone/Formoterol [Dulera 200 Mcg/5 Mcg Inhaler] 2 PUFF) IH SCH (10:00)
[2018-10-20] MEDS ORDERED: NORVASC PO SCH (10:00)
[2018-10-20 10:12] LABS: Alanine Aminotransferase 20 units/L (7-56); Albumin 4.1 g/dL (3.9-5); BUN/Creatinine Ratio 16; Blood Urea Nitrogen 13 mg/dL (9-20); Calcium 9.1 mg/dL (8.4-10.2); Hemolysis Index 4
[2018-10-20 12:16] LABS: Total Cells Counted 100
[2018-10-20 12:17] LABS: Band Neutrophils # (Manual) 0.1 K/mm3; Basophils % (Manual) 0 % (0.0-1.8); Eosinophils % (Manual) 0 % (0.0-4.3); Macrocytosis Few; Monocytes % (Manual) 0 % (0.0-7.3); Platelet Estimate Consistent w Auto
--- NOTE | 2018-10-20 12:39 | Consultation ---
History of Present Illness Consult date: 10/20/18 Requesting physician: LEATHA SORENSON Reason for consult: asthma History of present illness: 53 y/o male with known Asthma, last seen by me in the hospital in 2017 now admitted with asthma exacerbation. Denies any sick contacts. Positive cough. Mild chest discomfort but no sharp or heavy pains. Smokes cigarettes. Past History Past Medical History: hypertension, other (asthma) Past Surgical History: No surgical history Social history: smoking Family history: no significant family history Medications and Allergies Allergies Allergy/AdvReac Type Severity Reaction Status Date / Time bee pollen Allergy Shortness Verified 10/19/18 12:23 of Breath mold Allergy Shortness Uncoded 08/15/14 21:50 of Breath Home Medications Medication Instructions Recorded Confirmed Last Taken Type Lisinopril [Zestril TAB] 20 mg PO QDAY #30 tablet 06/26/17 10/19/18 10/17/18 Rx Mometasone/Formoterol [Dulera 200 2 puff IH BID #1 hfa.aer.ad 06/26/17 10/19/18 10/17/18 Rx Mcg/5 Mcg Inhaler] amLODIPine [Norvasc] 10 mg PO QDAY #30 tablet 06/26/17 10/19/18 10/17/18 Rx hydroCHLOROthiazide [HCTZ] 25 mg PO QDAY #30 tablet 06/26/17 10/19/18 10/17/18 Rx levoFLOXacin [Levaquin TAB] 750 mg PO Q24HR #3 tablet 06/26/17 10/19/18 10/17/18 Rx ALBUTEROL Inhaler (OR & NICU) 2 puff IH QID PRN #1 inhalation 10/19/18 Unknown Rx [ProAir HFA Inhaler] Active Meds: Active Medications Acetaminophen (Tylenol) 650 mg PO Q4H PRN PRN Reason: Pain MILD(1-3)/Fever >100.5/HANSON Albuterol (Proventil) 2.5 mg IH Q4HRT PRN PRN Reason: Shortness Of Breath Albuterol/Ipratropium (Duoneb *Not For Prn Use*) 1 ampul IH QIDRT [facility] Last Admin: 10/20/18 12:17 Dose: 1 ampul Documented by: Amlodipine Besylate (Norvasc) 10 mg PO DAILY [facility] Last Admin: 10/20/18 09:36 Dose: 10 mg Documented by: Budesonide (Pulmicort) 0.5 mg IH Q12HRT [facility] Last Admin: 10/20/18 08:09 Dose: 0.5 mg Documented by: Hydrochlorothiazide (Hctz) 25 mg PO QDAY [facility] Last Admin: 10/20/18 09:36 Dose: 25 mg Documented by: Hydromorphone HCl (Dilaudid) 0.5 mg IV Q3H PRN PRN Reason: Pain , Severe (7-10) Sodium Chloride (Nacl 0.9% 1000 Ml) 1,000 mls @ 42 mls/hr IV DIRECT [facility] Last Admin: 10/19/18 20:56 Dose: 42 mls/hr Documented by: Levofloxacin/Dextrose (Levaquin 750mg/150ml) 750 mg in 150 mls @ 100 mls/hr IV Q24H [facility]; Protocol Last Admin: 10/19/18 21:40 Dose: Not Given Documented by: Lisinopril (Zestril) 20 mg PO QDAY [facility] Last Admin: 10/20/18 09:36 Dose: 20 mg Documented by: Lorazepam (Ativan) 1 mg IV Q6HR PRN PRN Reason: Anxiety Methylprednisolone Sodium Succinate (Solu-Medrol) 125 mg IV Q8HR [facility] Last Admin: 10/20/18 05:26 Dose: 125 mg Documented by: Miscellaneous Medication (Mometasone/Formoterol [Dulera 200 Mcg/5 Mcg Inhaler]) 2 puff IH BID [facility] Montelukast Sodium (Singulair) 10 mg PO QHS [facility] Last Admin: 10/19/18 22:24 Dose: 10 mg Documented by: Ondansetron HCl (Zofran) 4 mg IV Q8H PRN PRN Reason: Nausea And Vomiting Oxycodone/Acetaminophen (Percocet 5/325) 1 tab PO Q6H PRN PRN Reason: Pain, Moderate (4-6) Sodium Chloride (Sodium Chloride Flush Syringe 10 Ml) 10 ml IV BID [facility] Last Admin: 10/20/18 09:37 Dose: 10 ml Documented by: Sodium Chloride (Sodium Chloride Flush Syringe 10 Ml) 10 ml IV PRN PRN PRN Reason: LINE FLUSH Physical Examination Vital signs: Vital Signs Temp Pulse Resp BP Pulse Ox 97.7 F 86 24 155/102 96 10/19/18 12:17 10/19/18 12:17 10/19/18 12:17 10/19/18 12:17 10/19/18 12:17 General appearance: no acute distress, alert Eyes: non-icteric ENT: oropharynx moist Neck: supple Effort: normal Ascultation: Bilateral: wheezes Cardiovascular: regular rate and rhythm Gastrointestinal: normoactive bowel sounds, soft, non-tender Extremities: no edema, pink and warm, pulses normal Results - Laboratory Findings CBC and BMP: 10/20/18 08:00 10/20/18 08:00 Abnormal lab findings: Abnormal Labs 10/19/18 10/20/18 10/20/18 20:55 08:00 08:00 RBC 5.04 H Hgb 15.4 H Hct 45.9 H Seg Neuts % (Manual) 93.0 H Lymphocytes % (Manual) 6.0 L Lymphocytes # (Manual) 0.5 L Glucose 144 H Hemoglobin A1c 6.1 H - Diagnostic Findings Chest x-ray: image reviewed (clear CXR) Assessment and Plan 53 y/o male with known asthma, admitted with acute asthma exacerbation 1. Smoking cessation 2. Please change steroids to Prednisone 60 daily and taper over a 2 week timespan 3. Would suggest changing to BID brovana as opposed to scheduled duonebs as patient does not need anticholinergic therapy 4. Hopeful discharge in the next 24-48 hours.
[2018-10-20] MEDS ORDERED: MAGNESIUM SULFATE 2GM/50ML 2 GM/50 ML BAG IV ONE (18:30)
[2018-10-20] MEDS: NACL 0.9% 1000 ML 1,000 ML IV SCH (20:47)
[2018-10-20] MEDS: LEVAQUIN 750MG/150ML 750 MG/150 ML BAG IV SCH (23:25)
[2018-10-20] MEDS: SINGULAIR PO SCH (23:26)
[2018-10-21] MEDS: DUONEB *Not for PRN Use IH SCH ×6 (00:57→20:02)
[2018-10-21] MEDS: SOLU-Medrol IV SCH ×3 (05:29→22:30)
[2018-10-21] MEDS: PULMICORT IH SCH ×2 (07:40→19:42)
[2018-10-21] MEDS: BROVANA NEBU IH SCH ×2 (07:41→19:42)
[2018-10-21] MEDS: NORVASC PO SCH (09:39)
[2018-10-21] MEDS: SODIUM CHLORIDE FLUSH SYRINGE 10 ML IV SCH ×2 (09:39→22:30)
[2018-10-21] MEDS: HCTZ PO SCH (09:39)
[2018-10-21] MEDS: ZESTRIL PO SCH (09:39)
--- NOTE | 2018-10-21 14:51 | Progress Note ---
Assessment and Plan 53 y/o male with known asthma, admitted with acute asthma exacerbation No new recommendations. Please see recs from yesterday. 1. Smoking cessation 2. Please change steroids to Prednisone 60 daily and taper over a 2 week timespan 3. Would suggest changing to BID brovana as opposed to scheduled duonebs as patient does not need anticholinergic therapy 4. Hopeful discharge in the next 24-48 hours. Subjective Date of service: 10/21/18 Interval history: No acute events. Not ready to be discharged today. No family at bedside. On room air. Still on IV steroids. Objective Vital Signs - 12hr 10/21/18 10/21/18 10/21/18 04:56 05:32 05:41 Temperature 97.8 F 98.1 F Pulse Rate 78 71 Pulse Rate [ Bilateral Upper Lobe] Pulse Rate [ 83 Posterior Bilateral Throughout] Respiratory 20 20 Rate Respiratory Rate [Bilateral Upper Lobe] Respiratory 18 Rate [Posterior Bilateral Throughout] Blood Pressure 151/92 150/75 Blood Pressure [Right] O2 Sat by Pulse 93 97 Oximetry 10/21/18 10/21/18 10/21/18 07:35 12:05 12:37 Temperature 98 F Pulse Rate 78 Pulse Rate [ 86 88 Bilateral Upper Lobe] Pulse Rate [ Posterior Bilateral Throughout] Respiratory 22 Rate Respiratory 16 18 Rate [Bilateral Upper Lobe] Respiratory Rate [Posterior Bilateral Throughout] Blood Pressure Blood Pressure 145/87 [Right] O2 Sat by Pulse 94 Oximetry Constitutional: no acute distress, alert Eyes: non-icteric ENT: oropharynx moist Neck: supple Effort: normal Ascultation: Bilateral: wheezes Cardiovascular: regular rate and rhythm Gastrointestinal: normoactive bowel sounds, soft, non-tender Extremities: no edema, pink and warm, pulses normal CBC and BMP: 10/20/18 08:00 10/20/18 08:00 Abnormal lab findings: Abnormal Labs 10/19/18 10/20/18 10/20/18 20:55 08:00 08:00 RBC 5.04 H Hgb 15.4 H Hct 45.9 H Seg Neuts % (Manual) 93.0 H Lymphocytes % (Manual) 6.0 L Lymphocytes # (Manual) 0.5 L Glucose 144 H POC Glucose Hemoglobin A1c 6.1 H 10/21/18 05:37 RBC Hgb Hct Seg Neuts % (Manual) Lymphocytes % (Manual) Lymphocytes # (Manual) Glucose POC Glucose 186 H Hemoglobin A1c
[2018-10-21] MEDS: MUCINEX ER PO SCH ×2 (15:24→22:30)
--- NOTE | 2018-10-21 15:41 | Progress Note ---
Assessment and Plan Assessment and plan: Acute respiratory failure admitted to med/surg oxygen by MT Asthma exacerbation solumedrol duoneb scheduled 4 times daily Albuterol prn Hypertension. Monitor BP Obesity I counseled him on diet and exercise to lose weight Full code status History Interval history: Still Shortness of breath Still wheezing cough Hospitalist Physical - Physical exam Narrative exam: Gen: Not in acute distress, sitting up in bed, obese HEENT: Normocephalic, atraumatic Neck: supple, no JVD Heart: S1 and S2 reg, no murmurs, rubs or gallop Lungs: Bilateral rhonchi, wheezing Abd: soft, non tender, non distended, normal BS, Ext: No edema, no clubbing, no cyanosis Neuro: Awake,alert, Oriented X 3. No focal neuro signs Psych: normal mood - Constitutional Vitals: Temp Pulse Resp BP Pulse Ox 98 F 78 22 145/87 94 10/21/18 12:37 10/21/18 12:37 10/21/18 12:37 10/21/18 12:37 10/21/18 12:37 General appearance: Present: no acute distress, obese Results - Labs CBC & Chem 7: 10/20/18 08:00 10/20/18 08:00 Labs: Laboratory Last Values WBC 8.2 K/mm3 (4.5-11.0) 10/20/18 08:00 RBC 5.04 M/mm3 (3.65-5.03) H 10/20/18 08:00 Hgb 15.4 gm/dl (11.8-15.2) H 10/20/18 08:00 Hct 45.9 % (35.5-45.6) H 10/20/18 08:00 MCV 91 fl (84-94) 10/20/18 08:00 MCH 30 pg (28-32) 10/20/18 08:00 MCHC 33 % (32-34) 10/20/18 08:00 RDW 13.9 % (13.2-15.2) 10/20/18 08:00 Plt Count 215 K/mm3 (140-440) 10/20/18 08:00 Add Manual Diff Complete 10/20/18 08:00 Total Counted 100 10/20/18 08:00 Seg Neutrophils % Back Up Machine Operator 10/20/18 08:00 Seg Neuts % (Manual) 93.0 % (40.0-70.0) H 10/20/18 08:00 1.0 % 10/20/18 08:00 6.0 % (13.4-35.0) L 10/20/18 08:00 Reactive Lymphs % (Man) 0 % 10/20/18 08:00 0 % (0.0-7.3) 10/20/18 08:00 0 % (0.0-4.3) 10/20/18 08:00 0 % (0.0-1.8) 10/20/18 08:00 0 % 10/20/18 08:00 0 % 10/20/18 08:00 0 % 10/20/18 08:00 0 % 10/20/18 08:00 Nucleated RBC % Not Reportable 10/20/18 08:00 Seg Neutrophils # Man 7.6 K/mm3 (1.8-7.7) 10/20/18 08:00 Band Neutrophils # 0.1 K/mm3 10/20/18 08:00 0.5 K/mm3 (1.2-5.4) L 10/20/18 08:00 Abs React Lymphs (Man) 0.0 K/mm3 10/20/18 08:00 0.0 K/mm3 (0.0-0.8) 10/20/18 08:00 0.0 K/mm3 (0.0-0.4) 10/20/18 08:00 0.0 K/mm3 (0.0-0.1) 10/20/18 08:00 0.0 K/mm3 10/20/18 08:00 0.0 K/mm3 10/20/18 08:00 0.0 K/mm3 10/20/18 08:00 Blast Cells # 0.0 K/mm3 10/20/18 08:00 WBC Morphology Not Reportable 10/20/18 08:00 Hypersegmented Neuts Not Reportable 10/20/18 08:00 Hyposegmented Neuts Not Reportable 10/20/18 08:00 Hypogranular Neuts Not Reportable 10/20/18 08:00 Not Reportable 10/20/18 08:00 Not Reportable 10/20/18 08:00 Not Reportable 10/20/18 08:00 Not Reportable 10/20/18 08:00 Not Reportable 10/20/18 08:00 Not Reportable 10/20/18 08:00 Consistent w auto 10/20/18 08:00 Not Reportable 10/20/18 08:00 Plt Clumps, EDTA Not Reportable 10/20/18 08:00 Not Reportable 10/20/18 08:00 Not Reportable 10/20/18 08:00 Not Reportable 10/20/18 08:00 Plt Morphology Comment Not Reportable 10/20/18 08:00 RBC Morphology Not Reportable 10/20/18 08:00 Dimorphic RBCs Not Reportable 10/20/18 08:00 Not Reportable 10/20/18 08:00 Not Reportable 10/20/18 08:00 Not Reportable 10/20/18 08:00 Not Reportable 10/20/18 08:00 Not Reportable 10/20/18 08:00 Few 10/20/18 08:00 Not Reportable 10/20/18 08:00 Not Reportable 10/20/18 08:00 Not Reportable 10/20/18 08:00 Not Reportable 10/20/18 08:00 Not Reportable 10/20/18 08:00 Not Reportable 10/20/18 08:00 Not Reportable 10/20/18 08:00 Not Reportable 10/20/18 08:00 Not Reportable 10/20/18 08:00 Not Reportable 10/20/18 08:00 Not Reportable 10/20/18 08:00 Not Reportable 10/20/18 08:00 Not Reportable 10/20/18 08:00 Acanthocytes (Spur) Not Reportable 10/20/18 08:00 Rouleaux Not Reportable 10/20/18 08:00 Not Reportable 10/20/18 08:00 Not Reportable 10/20/18 08:00 Not Reportable 10/20/18 08:00 Not Reportable 10/20/18 08:00 Hem Pathologist Commnt No 10/20/18 08:00 Sodium 141 mmol/L (137-145) 10/20/18 08:00 Potassium 4.5 mmol/L (3.6-5.0) 10/20/18 08:00 Chloride 104.7 mmol/L (98-107) 10/20/18 08:00 Carbon Dioxide 25 mmol/L (22-30) 10/20/18 08:00 16 mmol/L 10/20/18 08:00 BUN 13 mg/dL (9-20) 10/20/18 08:00 0.8 mg/dL (0.8-1.5) 10/20/18 08:00 Estimated GFR > 60 ml/min 10/20/18 08:00 16 % 10/20/18 08:00 Glucose 144 mg/dL (75-100) H 10/20/18 08:00 POC Glucose 186 (70-105) H 10/21/18 05:37 6.1 % (4-6) H 10/19/18 20:55 Calcium 9.1 mg/dL (8.4-10.2) 10/20/18 08:00 Magnesium 2.20 mg/dL (1.7-2.3) 10/20/18 10:47 0.30 mg/dL (0.1-1.2) 10/20/18 08:00 AST 17 units/L (5-40) 10/20/18 08:00 ALT 20 units/L (7-56) 10/20/18 08:00 76 units/L (35-129) 10/20/18 08:00 7.2 g/dL (6.3-8.2) 10/20/18 08:00 4.1 g/dL (3.9-5) 10/20/18 08:00 1.3 % 10/20/18 08:00 Active Medications - Current Medications Current Medications: Generic Name Dose Route Start Last Admin Trade Name Freq PRN Reason Stop Dose Admin Acetaminophen 650 mg 10/19/18 20:00 Tylenol PO Q4H PRN Pain MILD(1-3)/Fever >100.5/HANSON Albuterol 2.5 mg 10/19/18 20:03 Proventil IH Q4HRT PRN Shortness Of Breath Albuterol/Ipratropium 1 ampul 10/20/18 20:00 10/21/18 12:17 Duoneb *Not For Prn Use* IH 1 ampul Q4HRT [facility] Administration Amlodipine Besylate 10 mg 10/20/18 10:00 10/21/18 09:39 Norvasc PO 10 mg DAILY [facility] Administration Arformoterol Tartrate 15 mcg 08/01/19 08:00 10/21/18 07:41 Brovana Nebu IH 15 mcg Q12HRT [facility] Administration Budesonide 1 mg 10/21/18 08:00 10/21/18 07:40 Pulmicort IH 1 mg Q12HRT [facility] Administration Guaifenesin 600 mg 10/21/18 15:00 10/21/18 15:24 Mucinex Er PO 600 mg BID [facility] Administration Hydrochlorothiazide 25 mg 10/20/18 10:00 10/21/18 09:39 Hctz PO 25 mg QDAY [facility] Administration Hydromorphone HCl 0.5 mg 10/19/18 20:00 Dilaudid IV Q3H PRN Pain , Severe (7-10) Sodium Chloride 1,000 mls @ 42 mls/hr 10/19/18 20:00 10/20/18 20:47 Nacl 0.9% 1000 Ml IV 42 mls/hr DIRECT [facility] Administration Levofloxacin/Dextrose 750 mg in 150 mls @ 100 mls/hr 10/19/18 22:00 10/20/18 23:25 Levaquin 750mg/150ml IV 100 mls/hr Q24H [facility] Administration Protocol Lisinopril 20 mg 10/20/18 10:00 10/21/18 09:39 Zestril PO 20 mg QDAY [facility] Administration Lorazepam 1 mg 10/19/18 20:26 Ativan IV Q6HR PRN Anxiety Methylprednisolone Sodium Succinate 125 mg 10/19/18 22:00 10/21/18 14:14 Solu-Medrol IV 125 mg Q8HR [facility] Administration Montelukast Sodium 10 mg 10/19/18 22:00 10/20/18 23:26 Singulair PO 10 mg QHS [facility] Administration Ondansetron HCl 4 mg 10/19/18 20:00 Zofran IV Q8H PRN Nausea And Vomiting Oxycodone/Acetaminophen 1 tab 10/19/18 20:00 Percocet 5/325 PO Q6H PRN Pain, Moderate (4-6) Sodium Chloride 10 ml 10/19/18 22:00 10/21/18 09:39 Sodium Chloride Flush Syringe 10 Ml IV 10 ml BID [facility] Administration Sodium Chloride 10 ml 10/19/18 20:00 Sodium Chloride Flush Syringe 10 Ml IV PRN PRN LINE FLUSH
[2018-10-21] MEDS: SINGULAIR PO SCH (22:30)
[2018-10-21] MEDS: LEVAQUIN 750MG/150ML 750 MG/150 ML BAG IV SCH (22:33)
[2018-10-22] MEDS: DUONEB *Not for PRN Use IH SCH ×4 (00:47→12:06)
[2018-10-22] MEDS: SOLU-Medrol IV SCH (05:48)
[2018-10-22] MEDS: PULMICORT IH SCH (08:19)
[2018-10-22] MEDS: BROVANA NEBU IH SCH (08:20)
[2018-10-22] MEDS: NORVASC PO SCH (10:04)
[2018-10-22] MEDS: MUCINEX ER PO SCH (10:04)
[2018-10-22] MEDS: HCTZ PO SCH (10:05)
[2018-10-22] MEDS: ZESTRIL PO SCH (10:13)
[2018-10-22 11:51] VITALS: BP 135/80
--- NOTE | 2018-10-22 13:32 | Discharge Summary ---
Providers - Providers Date of Admission: 10/20/18 15:25 Date of discharge: 10/22/18 Attending physician: LEATHA SORENSON 10/20/18 09:37 Consult to Physician [CONS] Routine Comment: Consulting Provider: SHONA PEREZ Physician Instructions: Reason For Exam: Asthma exacerbation [facility]: Good Disposition: DC-01 TO HOME OR SELFCARE Core Measure Documentation - Palliative Care Palliative Care/ Comfort Measures: Not Applicable - Core Measures Any of the following diagnoses?: none Exam - Constitutional Vitals: Temp Pulse Resp BP Pulse Ox 98.2 F 65 18 135/80 92 10/22/18 11:49 10/22/18 12:06 10/22/18 12:06 10/22/18 11:49 10/22/18 11:49 Plan Activity: no restrictions Diet: low fat, low cholesterol, low salt Additional Instructions: 1.Follow up with PCP in 1 week. 2.Follow up with Shiv Stanford in 1 week Follow up with: SHONA PEREZ MD [Staff Physician] - 3-5 Days [facility] - [facility]-5 Days Prescriptions: levoFLOXacin [Levaquin] 750 mg PO QDAY #3 tablet guaiFENesin ER [Mucinex ER] 600 mg PO BID 7 Days tablet amLODIPine [Norvasc] 10 mg PO QDAY #30 tablet Famotidine [Pepcid] 20 mg PO BID #15 tablet Prednisone [predniSONE 10 mg (6-Day Pack, 21 Tabs)] 10 mg PO .TAPER #1 tab.ds.pk ALBUTEROL Inhaler (OR & NICU) [ProAir HFA Inhaler] 2 puff IH QID PRN #1 inhalation PRN Reason: WHEEZING AND COUGH ALBUTEROL NEB's [Proventil 0.083% NEBS] 2.5 mg INHALATION Q4H PRN 30 Days nebu PRN Reason: Shortness Of Breath Montelukast [Singulair] 10 mg PO QDAY #30 tablet Symbicort 160-4.5 Mcg Inhaler 1 inh INHALATION BID #1
--- NOTE | 2018-10-22 14:38 | Progress Note ---
Assessment and Plan 53 y/o male with known asthma, admitted with acute asthma exacerbation Per patient, already has a lung physician, can follow up with them at discharge. he could not tell me their name. No objection to discharge. 1. Smoking cessation 2. Please change steroids to Prednisone 60 daily and taper over a 2 week timespan 3. Would suggest changing to BID brovana as opposed to scheduled duonebs as patient does not need anticholinergic therapy 4. Hopeful discharge in the next 24-48 hours. Subjective Date of service: 10/22/18 Interval history: Patient being discharge today. Objective Vital Signs - 12hr 10/22/18 10/22/18 10/22/18 05:41 08:19 10:03 Temperature 98.2 F Pulse Rate 72 Pulse Rate [ 82 Bilateral Upper Lobe] Pulse Rate [ 78 Posterior Bilateral Throughout] Respiratory 20 Rate Respiratory 16 Rate [Bilateral Upper Lobe] Respiratory 15 Rate [Posterior Bilateral Throughout] Blood Pressure 130/81 121/75 O2 Sat by Pulse 91 Oximetry 10/22/18 10/22/18 10/22/18 10:13 11:49 12:06 Temperature 98.2 F Pulse Rate 91 H 67 Pulse Rate [ 65 Bilateral Upper Lobe] Pulse Rate [ 67 Posterior Bilateral Throughout] Respiratory 22 Rate Respiratory 18 Rate [Bilateral Upper Lobe] Respiratory 16 Rate [Posterior Bilateral Throughout] Blood Pressure 121/75 135/80 O2 Sat by Pulse 92 Oximetry Constitutional: no acute distress, alert Eyes: non-icteric ENT: oropharynx moist Neck: supple Effort: normal Ascultation: Bilateral: wheezes Cardiovascular: regular rate and rhythm Gastrointestinal: normoactive bowel sounds, soft, non-tender Extremities: no edema, pink and warm, pulses normal CBC and BMP: 10/20/18 08:00 10/20/18 08:00 Abnormal lab findings: Abnormal Labs 10/19/18 10/20/18 10/20/18 20:55 08:00 08:00 RBC 5.04 H Hgb 15.4 H Hct 45.9 H Seg Neuts % (Manual) 93.0 H Lymphocytes % (Manual) 6.0 L Lymphocytes # (Manual) 0.5 L Glucose 144 H POC Glucose Hemoglobin A1c 6.1 H 10/21/18 05:37 RBC Hgb Hct Seg Neuts % (Manual) Lymphocytes % (Manual) Lymphocytes # (Manual) Glucose POC Glucose 186 H Hemoglobin A1c
== END 2018-10-22 15:00 | disposition home or self-care (01) | DRG 189 ==
LOC: ED 12:08 → 3A 15:41 → OBSVTOIN 10-20 15:25
PROVIDERS: ADMIT Internal Medicine; ATTEND Internal Medicine
DX: J96.01 Acute respiratory failure with hypoxia (principal); J45.901 Unspecified asthma with (acute) exacerbation; I10 Essential (primary) hypertension; E66.9 Obesity, unspecified; Z82.49 Family history of ischemic heart disease and other diseases of the circulatory system; Z79.51 Long term (current) use of inhaled steroids; Z79.899 Other long term (current) drug therapy; Z91.030 Bee allergy status; Z91.09 Other allergy status, other than to drugs and biological substances; Z68.33 Body mass index [BMI] 33.0-33.9, adult; Z71.3 Dietary counseling and surveillance
CPT/HCPCS: 36415; 71045; 80053; 82962; 83036; 83735; 85007; 85025; 87116; 93005; 93010; 94640; 94644; 96365; 96366; 96372; 96375; G0378; J0171; J1956; J2930; J3475; J7030; J7040

== ENCOUNTER 2019-12-23 15:09 | Inpatient (IN) | payer MEDICAID ==
[2019-12-23] MEDS ORDERED: methylPREDNISolone Sod Succinate 125 MG/2 ML INJ IV ONE (15:47)
[2019-12-23] MEDS ORDERED: ALBUTEROL 2.5 MG/3 ML NEBU IH ONE ×4 (15:47→20:59)
[2019-12-23] MEDS ORDERED: MAGNESIUM SULFATE 2 GM/50 ML BAG IV ONE (15:47)
[2019-12-23] MEDS ORDERED: IPRATROPIUM 0.02% NEBU 2.5 ML IH ONE ×4 (15:47→20:59)
[2019-12-23] MEDS ORDERED: SODIUM CHLORIDE 0.9% 1000 ML 1,000 ML IV ONE (15:47)
[2019-12-23 16:05] LABS: Basophils # (Auto) 0.1 K/mm3 (0.0-0.1); Basophils % (Auto) 0.6 % (0.0-1.8); Eosinophils # (Auto) 0.2 K/mm3 (0.0-0.4); Eosinophils % (Auto) 1.8 % (0.0-4.3); Lymphocytes # (Auto) 1.1 K/mm3 (1.2-5.4); Lymphocytes % (Auto) 12.1 % (13.4-35.0); Mean Corpuscular HGB Conc 33 % (32-34); Mean Corpuscular Volume 90 fl (84-94); Monocytes # (Auto) 0.4 K/mm3 (0.0-0.8); Monocytes % (Auto) 4.3 % (0.0-7.3); Platelet Count 194 K/mm3 (140-440); Red Blood Count 5.36 M/mm3 (3.65-5.03); Red Cell Distribution Width 14.2 % (13.2-15.2)
--- NOTE | 2019-12-23 16:15 | XRay Report ---
CHEST 1 VIEW INDICATION: resp distress. COMPARISON: 10/19/2018 FINDINGS: Support devices: None. Heart: Within normal limits. Lungs/Pleura: No acute air space or interstitial disease. Additional findings: None. IMPRESSION: Unremarkable AP chest. Signer Name: Nas Paredes Jr, MD Signed: 12/23/2019 4:11 PM Workstation Name: [id number]
[2019-12-23 16:18] LABS: BUN/Creatinine Ratio 21; Blood Urea Nitrogen 21 mg/dL (9-20); Calcium 9.1 mg/dL (8.4-10.2); Hemolysis Index 46
--- NOTE | 2019-12-23 17:22 | Emergency Department Report ---
<CALVIN RG III - Last Filed: 12/23/19 19:34> ED Asthma HPI - General Chief Complaint: Dyspnea/Respdistress Stated Complaint: ASTHMA ATTACK/SWOLLEN LEGS Time Seen by Provider: 12/23/19 15:45 - Related Data Previous Rx's Medication Instructions Recorded Last Taken Type hydroCHLOROthiazide [HCTZ] 25 mg PO QDAY #30 tablet 06/26/17 10/17/18 Rx lisinopriL [Zestril TAB] 20 mg PO QDAY #30 tablet 06/26/17 10/17/18 Rx Albuterol Mdi (or & Nicu Only) 2 puff IH QID PRN #1 inhalation 10/19/18 Unknown Rx [ProAir HFA Inhaler] ALBUTEROL NEB's [Proventil 0.083% 2.5 mg INHALATION Q4H PRN 30 Days 10/22/18 Unknown Rx NEBS] nebu Famotidine [Pepcid] 20 mg PO BID #15 tablet 10/22/18 Unknown Rx Montelukast [Singulair] 10 mg PO QDAY #30 tablet 10/22/18 Unknown Rx Prednisone [predniSONE 10 mg 10 mg PO .TAPER #1 tab.ds.pk 10/22/18 Unknown Rx (6-Day Pack, 21 Tabs)] Symbicort 160-4.5 Mcg Inhaler 1 inh INHALATION BID #1 10/22/18 Unknown Rx amLODIPine 10 mg PO QDAY #30 tablet 10/22/18 Unknown Rx guaiFENesin ER [Mucinex ER] 600 mg PO BID 7 Days tablet 10/22/18 Unknown Rx levoFLOXacin [Levaquin] 750 mg PO QDAY #3 tablet 10/22/18 Unknown Rx Allergies Allergy/AdvReac Type Severity Reaction Status Date / Time bee pollen Allergy Shortness Verified 10/19/18 12:23 of Breath mold Allergy Shortness Uncoded 08/15/14 21:50 of Breath ED Past Medical Hx - Medications Home Medications: Home Medications Medication Instructions Recorded Confirmed Last Taken Type hydroCHLOROthiazide [HCTZ] 25 mg PO QDAY #30 tablet 06/26/17 12/23/19 10/17/18 Rx lisinopriL [Zestril TAB] 20 mg PO QDAY #30 tablet 06/26/17 12/23/19 10/17/18 Rx Albuterol Mdi (or & Nicu Only) 2 puff IH QID PRN #1 inhalation 10/19/18 12/23/19 Unknown Rx [ProAir HFA Inhaler] ALBUTEROL NEB's [Proventil 0.083% 2.5 mg INHALATION Q4H PRN 30 Days 10/22/18 12/23/19 Unknown Rx NEBS] nebu Famotidine [Pepcid] 20 mg PO BID #15 tablet 10/22/18 12/23/19 Unknown Rx Montelukast [Singulair] 10 mg PO QDAY #30 tablet 10/22/18 12/23/19 Unknown Rx Prednisone [predniSONE 10 mg 10 mg PO .TAPER #1 tab.ds.pk 10/22/18 12/23/19 Unknown Rx (6-Day Pack, 21 Tabs)] Symbicort 160-4.5 Mcg Inhaler 1 inh INHALATION BID #1 10/22/18 12/23/19 Unknown Rx amLODIPine 10 mg PO QDAY #30 tablet 10/22/18 12/23/19 Unknown Rx guaiFENesin ER [Mucinex ER] 600 mg PO BID 7 Days tablet 10/22/18 12/23/19 Unknown Rx levoFLOXacin [Levaquin] 750 mg PO QDAY #3 tablet 10/22/18 12/23/19 Unknown Rx ED Physical Exam - Respiratory Respiratory exam: Present: respiratory distress, wheezes - Cardiovascular Cardiovascular Exam: Present: regular rate, normal rhythm, normal heart sounds - GI/Abdominal GI/Abdominal exam: Present: soft, normal bowel sounds ED Course - Reevaluation(s) Reevaluation #1: Patient was signed out to me from previous physician to reassess after meds and breathing treatment. Patient states he is feeling the same. Patient states he does not feel better. Patient will be admitted to the hospital service for observation. Patient is still having diffuse wheezes throughout. Patient still having increased work to breathe. I discussed all results with patient. I discussed plan of care with patient. Patient agrees with plan of care and admission. Patient to be admitted to the hospitalist service. 12/23/19 18:59 - Consultations Consultation #1: Hospitalist consulted for admission. Hospitalist to admit patient. Dr. Neri to assume care of patient. 12/23/19 19:03 ED Medical Decision Making - Lab Data Result diagrams: 12/23/19 15:53 10/02/20 15:53 ED Disposition Clinical Impression: Hypoxia Acute asthma exacerbation Qualifiers: Asthma severity: moderate Asthma persistence: persistent Qualified Code(s): J45.41 - Moderate persistent asthma with (acute) exacerbation Acute respiratory failure Qualifiers: Respiratory failure complication: hypoxia Qualified Code(s): J96.01 - Acute respiratory failure with hypoxia Disposition: DC-09 OP ADMIT IP TO THIS HOSP Is pt being admited?: Yes Does the pt Need Aspirin: No Condition: Critical Time of Disposition: 19:01 <TIMUR CONNELLY - Last Filed: 12/24/19 11:34> ED Asthma HPI - General Source: EMS Mode of arrival: Stretcher Limitations: No Limitations - History of Present Illness Initial Comments: Patient is a 54-year-old F Citizen Of [place] male with a past medical history of asthma who is presenting with asthma exacerbation. He has been out of his albuterol for the last several days. Patient is complaining of shortness of breath especially with the exertion. Patient states he had possible fever last night as he was sweating. Has some chest tightness as well. He is denying any nausea vomiting diarrhea but does have a dry cough. ED Review of Systems ROS: Stated complaint: ASTHMA ATTACK/SWOLLEN LEGS Other details as noted in HPI Comment: All other systems reviewed and negative ED Past Medical Hx - Past Medical History Previous Medical History?: Yes Hx Hypertension: Yes Hx Congestive Heart Failure: No Hx Diabetes: No Hx Asthma: Yes Hx COPD: No - Surgical History Past Surgical History?: No - Social History Smoking Status: Never Smoker Substance Use Type: Alcohol ED Physical Exam - General Limitations: No Limitations General appearance: alert, in no apparent distress - Head Head exam: Present: atraumatic, normocephalic - Eye Eye exam: Present: normal appearance, PERRL, EOMI - ENT ENT exam: Present: mucous membranes moist - Neck Neck exam: Present: normal inspection - Respiratory Respiratory exam: Present: respiratory distress, wheezes. Absent: normal lung sounds bilaterally, rales, rhonchi - Cardiovascular Cardiovascular Exam: Present: regular rate, normal rhythm, normal heart sounds. Absent: systolic murmur, diastolic murmur, rubs, gallop - GI/Abdominal GI/Abdominal exam: Present: soft, normal bowel sounds. Absent: distended, tenderness, guarding, rebound - Rectal Rectal exam: Present: deferred - Extremities Exam Extremities exam: Present: normal inspection - Back Exam Back exam: Present: normal inspection - Neurological Exam Neurological exam: Present: alert, oriented X3 - Psychiatric Psychiatric exam: Present: normal affect, normal mood - Skin Skin exam: Present: warm, dry, intact, normal color. Absent: rash ED Course Vital Signs 12/23/19 12/23/19 12/23/19 16:13 16:15 17:00 Pulse Rate 81 Pulse Rate [ Bilateral Throughout] Respiratory 22 Rate Respiratory Rate [Bilateral Throughout] Blood Pressure 134/97 132/93 O2 Sat by Pulse 95 95 93 Oximetry 12/23/19 12/23/19 12/23/19 17:15 17:31 17:45 Pulse Rate 84 79 78 Pulse Rate [ Bilateral Throughout] Respiratory 24 15 19 Rate Respiratory Rate [Bilateral Throughout] Blood Pressure 132/93 137/77 137/77 O2 Sat by Pulse 94 96 96 Oximetry 12/23/19 12/23/19 12/23/19 18:01 18:15 18:30 Pulse Rate 77 84 82 Pulse Rate [ Bilateral Throughout] Respiratory 17 20 21 Rate Respiratory Rate [Bilateral Throughout] Blood Pressure 142/89 142/89 161/92 O2 Sat by Pulse 95 96 95 Oximetry 12/23/19 12/23/19 12/23/19 18:45 19:00 19:15 Pulse Rate 68 99 H 89 Pulse Rate [ Bilateral Throughout] Respiratory 22 20 22 Rate Respiratory Rate [Bilateral Throughout] Blood Pressure 161/92 177/109 177/109 O2 Sat by Pulse 93 94 95 Oximetry 12/23/19 12/23/19 12/23/19 19:31 19:45 20:01 Pulse Rate 96 H Pulse Rate [ Bilateral Throughout] Respiratory 21 21 21 Rate Respiratory Rate [Bilateral Throughout] Blood Pressure 147/108 161/95 145/126 O2 Sat by Pulse 95 86 95 Oximetry 12/23/19 12/23/19 12/23/19 20:15 20:31 20:45 Pulse Rate 100 H 94 H Pulse Rate [ Bilateral Throughout] Respiratory 13 19 17 Rate Respiratory Rate [Bilateral Throughout] Blood Pressure 145/126 158/131 158/131 O2 Sat by Pulse 98 97 97 Oximetry 12/23/19 12/23/19 12/23/19 21:01 21:03 21:11 Pulse Rate 98 H Pulse Rate [ 94 H Bilateral Throughout] Respiratory 30 H 13 Rate Respiratory 20 Rate [Bilateral Throughout] Blood Pressure 158/131 158/131 O2 Sat by Pulse 96 99 Oximetry 12/23/19 12/23/19 12/23/19 21:21 21:31 21:41 Pulse Rate Pulse Rate [ Bilateral Throughout] Respiratory 13 16 13 Rate Respiratory Rate [Bilateral Throughout] Blood Pressure 158/131 158/131 158/131 O2 Sat by Pulse 98 96 95 Oximetry 12/23/19 12/23/19 12/23/19 21:51 22:01 22:11 Pulse Rate Pulse Rate [ Bilateral Throughout] Respiratory 14 15 Rate Respiratory Rate [Bilateral Throughout] Blood Pressure 158/131 158/131 158/131 O2 Sat by Pulse 96 95 95 Oximetry 12/23/19 22:21 Pulse Rate Pulse Rate [ Bilateral Throughout] Respiratory Rate Respiratory Rate [Bilateral Throughout] Blood Pressure 158/131 O2 Sat by Pulse 95 Oximetry ED Medical Decision Making - Lab Data Result diagrams: 12/24/19 04:33 12/24/19 04:33 - Radiology Data [facility] [address] [place] [address] XRay Report Signed Patient: NAIF GOETZ MR#: [id number] : 1965 Acct:[id number] Age/Sex: 54 / M ADM Date: 12/23/19 Loc: ED Attending Dr: Ordering Physician: TIMUR CONNELLY MD Date of Service: 12/23/19 Procedure(s): XR chest 1V ap Accession Number(s): [id number] cc: TIMUR CONNELLY MD Fluoro Time In Minutes: CHEST 1 VIEW INDICATION: resp distress. COMPARISON: 10/19/2018 FINDINGS: Support devices: None. Heart: Within normal limits. Lungs/Pleura: No acute air space or interstitial disease. Additional findings: None. IMPRESSION: Unremarkable AP chest. Signer Name: Nas Paredes Jr, MD Signed: 12/23/2019 4:11 PM Workstation Name: [id number] Critical care attestation.: If time is entered above; I have spent that time in minutes in the direct care of this critically ill patient, excluding procedure time. ED Disposition Is pt being admited?: Yes Does the pt Need Aspirin: No
[2019-12-23] MEDS ORDERED: ACETAMINOPHEN 325 MG TAB PO PRN (19:28)
[2019-12-23] MEDS ORDERED: ONDANSETRON 4 MG/2 ML INJ IV PRN (19:28)
--- NOTE | 2019-12-23 19:28 | History and Physical Report ---
History of Present Illness Chief complaint: Cannot breathe History of present illness: 54 YO Male with Obesity Hypoventilation Syndrome, HTN, Asthma Moderate Persistent presents to ED for evaluation. Patient states that he has experienced shortness of breath over the past 1 week with acutely worsening symptoms over the past 1 day. Patient states that he has experienced increased use of nebulizer and inhaler therapy without relief. Patient also reports that he ran out of his albuterol inhaler 2 days ago. EMS was notified and upon arrival the patient was found to be in distress. Patient placed on submental ox ygen and transported to [facility] for further evaluation and care of the aforementioned symptoms. Patient seen and evaluated in the emergency department. Lab and imaging studies reviewed. Patient found to have a pulse oximetry of 87% on room air which is consistent with acute hypoxemic respiratory failure secondary to status asthmaticus. Patient treated with IV steroid therapy and submental oxygen with mild improvement in symptoms. Patient is sitting forward in bed, you tripoding, using accessory muscles to breathe and is unable to speak in complete sentences. Patient admitted to medical floor due to increased risk of pulmonary decompensation. Patient denies fever, chills, chest pain, palpitations, skin rash, recent ill contacts, or known exposure to COVID- 19. All medication listed at time of admission has been reconciled. Prior admission on 10/20/2018 reviewed. Past History Past Medical History: other (See HPI) Past Surgical History: No surgical history, Other (Reviewed) Social history: single. denies: smoking, alcohol abuse, prescription drug abuse Family history: hypertension Medications and Allergies Allergies Allergy/AdvReac Type Severity Reaction Status Date / Time bee pollen Allergy Shortness Verified 10/19/18 12:23 of Breath mold Allergy Shortness Uncoded 08/15/14 21:50 of Breath Home Medications Medication Instructions Recorded Confirmed Last Taken Type hydroCHLOROthiazide [HCTZ] 25 mg PO QDAY #30 tablet 06/26/17 12/23/19 10/17/18 Rx lisinopriL [Zestril TAB] 20 mg PO QDAY #30 tablet 06/26/17 12/23/19 10/17/18 Rx Albuterol Mdi (or & Nicu Only) 2 puff IH QID PRN #1 inhalation 10/19/18 12/23/19 Unknown Rx [ProAir HFA Inhaler] ALBUTEROL NEB's [Proventil 0.083% 2.5 mg INHALATION Q4H PRN 30 Days 10/22/18 12/23/19 Unknown Rx NEBS] nebu Famotidine [Pepcid] 20 mg PO BID #15 tablet 10/22/18 12/23/19 Unknown Rx Montelukast [Singulair] 10 mg PO QDAY #30 tablet 10/22/18 12/23/19 Unknown Rx Prednisone [predniSONE 10 mg 10 mg PO .TAPER #1 tab.ds.pk 10/22/18 12/23/19 Unknown Rx (6-Day Pack, 21 Tabs)] Symbicort 160-4.5 Mcg Inhaler 1 inh INHALATION BID #1 10/22/18 12/23/19 Unknown Rx amLODIPine 10 mg PO QDAY #30 tablet 10/22/18 12/23/19 Unknown Rx guaiFENesin ER [Mucinex ER] 600 mg PO BID 7 Days tablet 10/22/18 12/23/19 Unknown Rx levoFLOXacin [Levaquin] 750 mg PO QDAY #3 tablet 10/22/18 12/23/19 Unknown Rx Review of Systems Constitutional: no weight loss, no weight gain, no fever, no chills Ears, nose, mouth and throat: no ear pain, no tinnitis, no decreased hearing, no nose pain, no nasal congestion Cardiovascular: no chest pain, no palpitations, no rapid/irregular heart beat, no edema Respiratory: shortness of breath, wheezing, no hemoptysis, no pain on inspiration Gastrointestinal: no abdominal pain, no nausea, no vomiting, no diarrhea, no change in bowel habits Genitourinary Male: no hematuria, no flank pain, no discharge, no urinary frequency, no urinary hesitancy Rectal: no pain, no incontinence, no bleeding Musculoskeletal: no neck pain, no shooting arm pain, no low back pain, no shooting leg pain Integumentary: no rash, no pruritis, no redness, no wounds, no jaundice Neurological: no transient paralysis, no paralysis, no parathesias, no numbness, no tingling, no syncope Psychiatric: no anxiety, no memory loss, no sleep disturbances, no hypersomnia, no change in appetite, no suicidal ideation Endocrine: no cold intolerance, no heat intolerance, no polyphagia, no polydipsia Hematologic/Lymphatic: no easy bruising, no easy bleeding, no lymphadenopathy, no lymphedema Allergic/Immunologic: no urticaria, no allergic rhinitis, no persistent infections, no anaphylaxis, no angioedema Exam - Constitutional Vitals: Temp Pulse Resp BP Pulse Ox 99 H 20 177/109 94 12/23/19 19:00 12/23/19 19:00 12/23/19 19:00 12/23/19 19:00 General appearance: Present: mild distress - EENT Eyes: Present: PERRL ENT: hearing intact, clear oral mucosa - Neck Neck: Present: supple, normal ROM - Respiratory Respiratory effort: labored, pursed lips, accessory muscle use, stridor Respiratory: bilateral: diminished, wheezing - Cardiovascular Rhythm: other (Tachycardia) Heart Sounds: Present: S1 & S2. Absent: rub, click - Extremities Extremities: pulses symmetrical, No edema Peripheral Pulses: within normal limits - Abdominal General gastrointestinal: Present: soft, non-tender, non-distended, normal bowel sounds Male genitourinary: Present: normal - Integumentary Integumentary: Present: clear, warm, dry - Musculoskeletal Musculoskeletal: gait normal, strength equal bilaterally - Psychiatric Psychiatric: appropriate mood/affect, intact judgment & insight - Neurologic Neurologic: CNII-XII intact, moves all extremities Results - Labs CBC & Chem 7: 12/23/19 15:53 12/23/19 15:53 Labs: Abnormal lab results 12/23/19 12/23/19 Range/Units 15:53 15:53 RBC 5.36 H (3.65-5.03) M/mm3 Hgb 16.0 H (11.8-15.2) gm/dl Hct 48.0 H (35.5-45.6) % Lymph % (Auto) 12.1 L (13.4-35.0) % Lymph # (Auto) 1.1 L (1.2-5.4) K/mm3 Seg Neutrophils % 81.2 H (40.0-70.0) % Sodium 135 L (137-145) mmol/L BUN 21 H (9-20) mg/dL Glucose 171 H (75-100) mg/dL Assessment and Plan - Patient Problems (1) Acute respiratory failure Current Visit: Yes Status: Acute Qualifiers: Respiratory failure complication: hypoxia Qualified Code(s): J96.01 - Acute respiratory failure with hypoxia Plan to address problem: Chest x-ray, supplemental oxygen, pulse oximetry, nebulizer therapy, noninvasive positive pressure ventilation as clinically indicated, pulmonary toilet. (2) Obesity hypoventilation syndrome Current Visit: Yes Status: Acute Plan to address problem: Supplemental oxygen, balanced diet, increase physical activity at discharge, pulmonary follow-up as outpatient for sleep study. (3) Acute asthma exacerbation Current Visit: Yes Status: Acute Qualifiers: Asthma severity: moderate Asthma persistence: persistent Qualified Code(s): J45.41 - Moderate persistent asthma with (acute) exacerbation Plan to address problem: Supplemental oxygen, nebulizer therapy, pulse oximetry, IV steroid therapy, (4) DVT prophylaxis Current Visit: Yes Status: Acute Plan to address problem: SCD to bilateral lower extremities while in bed, patient is ambulatory.
[2019-12-24] MEDS: ALBUTEROL 2.5 MG/3 ML NEBU IH PRN ×3 (00:53→20:45)
[2019-12-24] MEDS: INSULIN LISPRO 100 UNIT/ML VIAL 3 mL SUB-Q SCH ×5 (01:02→23:39)
[2019-12-24] MEDS: FAMOTIDINE 10 MG TAB PO SCH ×3 (01:03→22:10)
[2019-12-24 05:08] LABS: Basophils # (Auto) 0.1 K/mm3 (0.0-0.1); Basophils % (Auto) 1.2 % (0.0-1.8); Hematocrit 46.4 % (35.5-45.6); Hemoglobin 15.3 gm/dl (11.8-15.2); Lymphocytes # (Auto) 0.7 K/mm3 (1.2-5.4); Lymphocytes % (Auto) 8.7 % (13.4-35.0); Mean Corpuscular HGB Conc 33 % (32-34); Mean Corpuscular Volume 91 fl (84-94); Monocytes # (Auto) 0.3 K/mm3 (0.0-0.8); Monocytes % (Auto) 3.3 % (0.0-7.3); Platelet Count 187 K/mm3 (140-440); Red Blood Count 5.09 M/mm3 (3.65-5.03); Red Cell Distribution Width 14.6 % (13.2-15.2)
[2019-12-24 05:28] LABS: BUN/Creatinine Ratio 22; Blood Urea Nitrogen 22 mg/dL (9-20); Calcium 8.9 mg/dL (8.4-10.2); Hemolysis Index 9
[2019-12-24] MEDS ORDERED: INSULIN LISPRO 100 UNIT/ML VIAL 3 mL SUB-Q SCH (07:30)
[2019-12-24] MEDS ORDERED: IPRATROPIUM/ALBUTEROL SULFATE 3 ML AMPUL.NEB IH SCH (14:00)
[2019-12-24] MEDS: amLODIPine 10 MG TAB PO SCH (18:12)
--- NOTE | 2019-12-24 18:42 | Progress Note ---
Assessment and Plan -- Acute respiratory failure Due to asthma exacerbation O2 sat was 86% on RA cont to treat for asthma -- Obesity hypoventilation syndrome balanced diet, increase physical activity at discharge, pulmonary follow-up as outpatient for sleep study. -- Acute asthma exacerbation Supplemental oxygen, nebulizer therapy, pulse oximetry, IV steroid therapy, zithromax --HTN, uncontrolled start on antihypertensives -- DVT prophylaxis SCD to bilateral lower extremities while in bed, patient is ambulatory. 12/23: patient remains symptomatic with b/l wheezes, SOB even on resting. cont nebs, supplemental O2, iv steroid. start on po abx. if clinically improves possible d/c 1-2 days Subjective Date of service: 12/24/19 Interval history: Patient seen and examined. Medical records and medication list reviewed. No acute event overnight noted by the RN. Patient denies any chest pain but complains of difficulty breathing even on resting with audible wheezes. Patient is tolerating diet. Discussed plan of care at bedside with patient. Objective - Exam Narrative Exam: GENERAL: well-developed obese -[place] male lying on bed appeared to be in no discomfort. HEENT: Normocephalic. Atraumatic. No conjunctival congestion or icterus. Patient has moist mucous membranes. NECK: Supple. Trachea midline. CHEST/LUNGS: Audible wheezes auscultated bilaterally, breathing nonlabored. No crackles or rhonchi. HEART/CARDIOVASCULAR: Regular in rate and rhythm. S1 and S2 positive. ABDOMEN: Abdomen is soft, nontender. Patient has normal bowel sounds. SKIN: There is no rash. Warm and dry. NEURO: No focal motor deficit. Follows command. MUSCULOSKELETAL: No joint effusion or tenderness. EXTRIMITY: No edema, no cyanosis or clubbing. PSYCH: Cooperative. - Constitutional Vitals: Vital Signs - 12hr 12/24/19 12/24/19 12/24/19 06:46 08:25 10:41 Temperature 98.5 F Pulse Rate 80 Pulse Rate [ 77 Bilateral Throughout] Respiratory 24 Rate Respiratory 20 Rate [Bilateral Throughout] Blood Pressure 173/93 O2 Sat by Pulse 95 96 Oximetry 12/24/19 12/24/19 12/24/19 11:00 14:05 16:14 Temperature 98.8 F Pulse Rate 79 Pulse Rate [ 87 Bilateral Throughout] Respiratory 16 Rate Respiratory 18 Rate [Bilateral Throughout] Blood Pressure 150/80 O2 Sat by Pulse 96 100 Oximetry 12/24/19 18:12 Temperature Pulse Rate 79 Pulse Rate [ Bilateral Throughout] Respiratory Rate Respiratory Rate [Bilateral Throughout] Blood Pressure 150/80 O2 Sat by Pulse Oximetry - Labs CBC & Chem 7: 12/24/19 04:33 12/24/19 04:33 Labs: Abnormal lab results 12/23/19 12/24/19 12/24/19 Range/Units 23:21 04:33 04:33 RBC 5.09 H (3.65-5.03) M/mm3 Hgb 15.3 H (11.8-15.2) gm/dl Hct 46.4 H (35.5-45.6) % Lymph % (Auto) 8.7 L (13.4-35.0) % Lymph # (Auto) 0.7 L (1.2-5.4) K/mm3 Seg Neutrophils % 86.8 H (40.0-70.0) % Sodium 135 L (137-145) mmol/L Carbon Dioxide 21 L (22-30) mmol/L BUN 22 H (9-20) mg/dL Glucose 231 H (75-100) mg/dL POC Glucose 320 H (70-105) 12/24/19 12/24/19 12/24/19 Range/Units 08:11 12:19 16:15 RBC (3.65-5.03) M/mm3 Hgb (11.8-15.2) gm/dl Hct (35.5-45.6) % Lymph % (Auto) (13.4-35.0) % Lymph # (Auto) (1.2-5.4) K/mm3 Seg Neutrophils % (40.0-70.0) % Sodium (137-145) mmol/L Carbon Dioxide (22-30) mmol/L BUN (9-20) mg/dL Glucose (75-100) mg/dL POC Glucose 161 H 152 H 140 H (70-105)
[2019-12-24] MEDS: IPRATROPIUM/ALBUTEROL SULFATE 3 ML AMPUL.NEB IH SCH (20:42)
[2019-12-24] MEDS: AZITHROMYCIN 250 MG TAB PO SCH (20:55)
[2019-12-24] MEDS: methylPREDNISolone Sod Succinate 125 MG/2 ML INJ IV SCH (22:13)
[2019-12-24] MEDS: hydrALAZINE 25 MG TAB PO SCH (22:15)
[2019-12-25] MEDS: IPRATROPIUM/ALBUTEROL SULFATE 3 ML AMPUL.NEB IH SCH ×3 (02:15→14:08)
[2019-12-25] MEDS: hydrALAZINE 25 MG TAB PO SCH ×2 (06:16→13:17)
[2019-12-25] MEDS: methylPREDNISolone Sod Succinate 125 MG/2 ML INJ IV SCH ×2 (06:16→13:17)
[2019-12-25] MEDS: INSULIN LISPRO 100 UNIT/ML VIAL 3 mL SUB-Q SCH ×2 (07:30→11:30)
[2019-12-25] MEDS: amLODIPine 10 MG TAB PO SCH (09:08)
[2019-12-25] MEDS: AZITHROMYCIN 250 MG TAB PO SCH (09:09)
[2019-12-25] MEDS: FAMOTIDINE 10 MG TAB PO SCH (09:09)
[2019-12-25 13:18] VITALS: BP 169/97
--- NOTE | 2019-12-25 13:30 | Discharge Summary ---
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 -- Acute asthma exacerbation Supplemental oxygen, nebulizer therapy, pulse oximetry, IV steroid therapy, zithromax --HTN, uncontrolled start on antihypertensives -- DVT prophylaxis SCD to bilateral lower extremities while in bed, patient is ambulatory. Disposition: TO HOME OR SELFCARE Time spent for discharge: 34 minutes Core Measure Documentation - Palliative Care Palliative Care/ Comfort Measures: Not Applicable - Core Measures Any of the following diagnoses?: none Exam - Physical Exam Narrative exam: GENERAL: well-developed obese -[place] male lying on bed appeared to be in no discomfort. HEENT: Normocephalic. Atraumatic. No conjunctival congestion or icterus. Patient has moist mucous membranes. NECK: Supple. Trachea midline. CHEST/LUNGS: Audible wheezes auscultated bilaterally, breathing nonlabored. No crackles or rhonchi. HEART/CARDIOVASCULAR: Regular in rate and rhythm. S1 and S2 positive. ABDOMEN: Abdomen is soft, nontender. Patient has normal bowel sounds. SKIN: There is no rash. Warm and dry. NEURO: No focal motor deficit. Follows command. MUSCULOSKELETAL: No joint effusion or tenderness. EXTRIMITY: No edema, no cyanosis or clubbing. PSYCH: Cooperative. - Constitutional Vitals: Temp Pulse Resp BP Pulse Ox 97.7 F 98 H 24 169/97 98 12/25/19 11:43 12/25/19 13:17 12/25/19 11:43 12/25/19 13:17 12/25/19 11:43 Plan Activity: advance as tolerated Weight Bearing Status: Weight Bear as Tolerated Diet: low fat, low salt Follow up with: PRIMARY CAREMD [Primary Care Provider] - 3-5 Days MIKE HUTTON MD [Staff Physician] - 7 Days Prescriptions: amLODIPine 10 mg PO QDAY #30 tablet hydrALAZINE [Apresoline TAB] 50 mg PO Q8HR #90 tablet guaiFENesin ER [Mucinex ER] 600 mg PO BID 7 Days #14 tablet Famotidine [Pepcid] 20 mg PO BID #15 tablet Prednisone [predniSONE 10 mg (6-Day Pack, 21 Tabs)] 10 mg PO .TAPER #1 tab.ds.pk Albuterol Mdi (or & Nicu Only) [ProAir HFA Inhaler] 2 puff IH QID PRN #1 inhalation PRN Reason: WHEEZING AND COUGH ALBUTEROL NEB's [Proventil 0.083% NEBS] 2.5 mg INHALATION Q4H PRN 30 Days nebu PRN Reason: Shortness Of Breath Montelukast [Singulair] 10 mg PO QDAY #30 tablet Symbicort 160-4.5 Mcg Inhaler 1 inh INHALATION BID #1 lisinopriL [Zestril TAB] 20 mg PO QDAY #30 tablet Azithromycin [Zithromax TAB] 500 mg PO QDAY #4 tablet
[2019-12-25] MEDS ORDERED: MAGNESIUM SULFATE 2 GM/50 ML BAG IV ONE (17:33)
== END 2019-12-25 18:50 | disposition home or self-care (01) | DRG 189 ==
LOC: ED 15:09 → 3A 19:28
PROVIDERS: ADMIT Internal Medicine; ATTEND Internal Medicine
DX: J96.01 Acute respiratory failure with hypoxia (principal); E66.2 Morbid (severe) obesity with alveolar hypoventilation; I10 Essential (primary) hypertension; J45.41 Moderate persistent asthma with (acute) exacerbation; Z68.38 Body mass index [BMI] 38.0-38.9, adult; Z82.49 Family history of ischemic heart disease and other diseases of the circulatory system; Z91.030 Bee allergy status; Z79.899 Other long term (current) drug therapy
CPT/HCPCS: 36415; 71045; 80048; 82962; 85025; 87641; 94640; 94644; 94760; 96372; G0378; J2930; J3475; J7030

== ENCOUNTER 2021-08-29 08:58 | Emergency (ER) | payer MEDICAID ==
[2021-08-29] MEDS ORDERED: MAGNESIUM SULFATE 2 GM/50 ML BAG IV ONE (09:16)
[2021-08-29] MEDS ORDERED: ALBUTEROL 2.5 MG/3 ML NEBU IH ONE (09:16)
[2021-08-29] MEDS ORDERED: IPRATROPIUM 0.02% NEBU 2.5 ML IH ONE (09:16)
--- NOTE | 2021-08-29 09:19 | Emergency Department Report ---
ED Asthma HPI - General Chief Complaint: Adult Asthma Stated Complaint: RESP DISTRESS/COUGH Time Seen by Provider: 08/29/21 09:16 Source: patient, EMS Mode of arrival: Stretcher Limitations: No Limitations - History of Present Illness Initial Comments: Patient is 56-year-old male with history of asthma. Patient brought to the emergency room via EMS from home for evaluation of possible asthma exacerbation. Patient started to have shortness of breath and wheezing this morning. Patient denied any fever or chills. No chest pain. Patient received albuterol 5 mg by EMS. He also received Decadron 10 mg IV. Upon arrival to the ER patient still tachypneic with diffuse wheezing. Added albuterol 10, Atrovent 1 mg and magnesium sulfate 2 g. MD Complaint: "asthma attack", shortness of breath, wheezing -: This morning Severity: moderate Treatments Prior to Arrival: inhaled bronchodilator, IV steroid - Related Data Current Asthma Therapy: inhaled bronchodilator Previous Rx's Medication Instructions Recorded Last Taken Type ALBUTEROL NEB's [Proventil 0.083% 2.5 mg INHALATION Q4H PRN 30 Days 12/25/19 Unknown Rx NEBS] nebu Albuterol Mdi (or & Nicu Only) 2 puff IH QID PRN #1 inhalation 12/25/19 Unknown Rx [ProAir HFA Inhaler] Azithromycin [Zithromax TAB] 500 mg PO QDAY #4 tablet 12/25/19 Unknown Rx Famotidine [Pepcid] 20 mg PO BID #15 tablet 12/25/19 Unknown Rx Montelukast [Singulair] 10 mg PO QDAY #30 tablet 12/25/19 Unknown Rx Prednisone [predniSONE 10 mg 10 mg PO .TAPER #1 tab.ds.pk 12/25/19 Unknown Rx (6-Day Pack, 21 Tabs)] Symbicort 160-4.5 Mcg Inhaler 1 inh INHALATION BID #1 12/25/19 Unknown Rx amLODIPine 10 mg PO QDAY #30 tablet 12/25/19 Unknown Rx guaiFENesin ER [Mucinex ER] 600 mg PO BID 7 Days #14 tablet 12/25/19 Unknown Rx hydrALAZINE [Apresoline TAB] 50 mg PO Q8HR #90 tablet 12/25/19 Unknown Rx lisinopriL [Zestril TAB] 20 mg PO QDAY #30 tablet 12/25/19 Unknown Rx Allergies Allergy/AdvReac Type Severity Reaction Status Date / Time bee pollen Allergy Shortness Verified 08/29/21 09:10 of Breath mold Allergy Shortness Uncoded 08/29/21 09:10 of Breath ED Review of Systems ROS: Stated complaint: RESP DISTRESS/COUGH Other details as noted in HPI Comment: All other systems reviewed and negative Constitutional: denies: chills, fever Respiratory: cough, shortness of breath, SOB with exertion, SOB at rest, wheezing Cardiovascular: denies: chest pain, palpitations Gastrointestinal: denies: abdominal pain, nausea, vomiting, diarrhea, constipation, hematemesis Neurological: denies: headache, weakness ED Past Medical Hx - Past Medical History Hx Hypertension: Yes Hx Congestive Heart Failure: No Hx Diabetes: No Hx Asthma: Yes Hx COPD: No - Social History Smoking Status: Never Smoker Substance Use Type: Alcohol - Medications Home Medications: Home Medications Medication Instructions Recorded Confirmed Last Taken Type ALBUTEROL NEB's [Proventil 0.083% 2.5 mg INHALATION Q4H PRN 30 Days 12/25/19 Unknown Rx NEBS] nebu Albuterol Mdi (or & Nicu Only) 2 puff IH QID PRN #1 inhalation 12/25/19 Unknown Rx [ProAir HFA Inhaler] Azithromycin [Zithromax TAB] 500 mg PO QDAY #4 tablet 12/25/19 Unknown Rx Famotidine [Pepcid] 20 mg PO BID #15 tablet 12/25/19 Unknown Rx Montelukast [Singulair] 10 mg PO QDAY #30 tablet 12/25/19 Unknown Rx Prednisone [predniSONE 10 mg 10 mg PO .TAPER #1 tab.ds.pk 12/25/19 Unknown Rx (6-Day Pack, 21 Tabs)] Symbicort 160-4.5 Mcg Inhaler 1 inh INHALATION BID #1 12/25/19 Unknown Rx amLODIPine 10 mg PO QDAY #30 tablet 12/25/19 Unknown Rx guaiFENesin ER [Mucinex ER] 600 mg PO BID 7 Days #14 tablet 12/25/19 Unknown Rx hydrALAZINE [Apresoline TAB] 50 mg PO Q8HR #90 tablet 12/25/19 Unknown Rx lisinopriL [Zestril TAB] 20 mg PO QDAY #30 tablet 12/25/19 Unknown Rx ED Physical Exam - General Limitations: No Limitations General appearance: alert, in distress - Head Head exam: Present: atraumatic, normocephalic, normal inspection - Eye Eye exam: Present: normal appearance - ENT ENT exam: Present: normal exam, normal orophraynx, mucous membranes moist - Neck Neck exam: Present: normal inspection, full ROM. Absent: tenderness, meningismus - Respiratory Respiratory exam: Present: respiratory distress, wheezes, rhonchi, prolonged expiratory. Absent: rales - Cardiovascular Cardiovascular Exam: Present: regular rate, normal rhythm, normal heart sounds - GI/Abdominal GI/Abdominal exam: Present: soft, normal bowel sounds. Absent: distended, tenderness, guarding, rebound, rigid, organomegaly, mass, bruit, pulsatile mass, hernia - Extremities Exam Extremities exam: Present: normal inspection, full ROM, normal capillary refill. Absent: tenderness - Back Exam Back exam: Present: normal inspection, full ROM. Absent: CVA tenderness (R), CVA tenderness (L) - Neurological Exam Neurological exam: Present: alert, oriented X3, CN II-XII intact, normal gait, reflexes normal. Absent: motor sensory deficit - Psychiatric Psychiatric exam: Present: normal mood - Skin Skin exam: Present: warm, intact, normal color ED Course Vital Signs 08/29/21 08/29/21 08/29/21 09:07 09:30 09:46 Temperature 98.9 F 97.7 F Pulse Rate 82 72 Pulse Rate [ 80 Bilateral] Respiratory 16 16 Rate Respiratory 20 Rate [Bilateral ] Blood Pressure 162/80 155/85 [Left] O2 Sat by Pulse 100 98 Oximetry 08/29/21 09:52 Temperature 97.7 F Pulse Rate 75 Pulse Rate [ Bilateral] Respiratory 15 Rate Respiratory Rate [Bilateral ] Blood Pressure [Left] O2 Sat by Pulse 98 Oximetry ED Medical Decision Making - Lab Data Result diagrams: 08/29/21 09:32 08/29/21 09:32 - Radiology Data Radiology results: report reviewed - Medical Decision Making Patient is 56-year-old male with history of asthma. Patient brought to the emergency room via EMS from home for evaluation of possible asthma exacerbation. Patient started to have shortness of breath and wheezing this morning. Patient denied any fever or chills. No chest pain. Patient received albuterol 5 mg by EMS. He also received Decadron 10 mg IV. Upon arrival to the ER patient still tachypneic with diffuse wheezing. Added albuterol 10, Atrovent 1 mg and magnesium sulfate 2 g. Patient stated that he is feeling much better. Labs reviewed and is unremarka ble. Chest x-ray is negative for acute finding. Patient given prescription for prednisone and albuterol and advised to follow-up with his primary doctor in the next 2 to 3 days and to return if symptoms. Critical care attestation.: If time is entered above; I have spent that time in minutes in the direct care of this critically ill patient, excluding procedure time. ED Disposition Clinical Impression: Acute asthma exacerbation Disposition: HOME / SELF CARE / HOMELESS Is pt being admited?: No Condition: Stable Instructions: Asthma Attack Prevention, Adult, Asthma, Adult Referrals: PRIMARY CARE, [Primary Care Provider] - 3-5 Days
--- NOTE | 2021-08-29 09:48 | XRay Report ---
CHEST 1 VIEW INDICATION: Asthma. COMPARISON: 12/22/2021 FINDINGS: Support devices: None. Heart: Normal. Lungs/Pleura: No acute pulmonary or pleural findings. IMPRESSION: 1. No acute findings. Signer Name: Alejandro Weaver MD Signed: 08/29/2021 9:44 AM Workstation Name: [id number]
[2021-08-29 09:52] VITALS: BP 155/85
[2021-08-29 11:08] LABS: BUN/Creatinine Ratio 13; Blood Urea Nitrogen 12 mg/dL (9-20); Calcium 8.2 mg/dL (8.4-10.2); Hemolysis Index 11
[2021-08-29 11:14] LABS: Basophils # (Auto) 0.1 K/mm3 (0.0-0.1); Basophils % (Auto) 0.8 % (0.0-1.8); Eosinophils # (Auto) 0.8 K/mm3 (0.0-0.4); Eosinophils % (Auto) 10.6 % (0.0-4.3); Hemoglobin 13.7 gm/dl (11.8-15.2); Lymphocytes # (Auto) 2.5 K/mm3 (1.2-5.4); Lymphocytes % (Auto) 33.3 % (13.4-35.0); Mean Corpuscular HGB Conc 33 % (32-34); Mean Corpuscular Volume 90 fl (84-94); Monocytes # (Auto) 0.5 K/mm3 (0.0-0.8); Monocytes % (Auto) 6.6 % (0.0-7.3); Platelet Count 187 K/mm3 (140-440); Red Blood Count 4.66 M/mm3 (3.65-5.03); Red Cell Distribution Width 14.3 % (13.2-15.2)
== END 2021-08-29 12:55 | disposition home or self-care (01) ==
LOC: ED 08:58
DX: J45.901 Unspecified asthma with (acute) exacerbation (principal); I10 Essential (primary) hypertension; F10.20 Alcohol dependence, uncomplicated; Z91.030 Bee allergy status
CPT/HCPCS: 36415; 71045; 80048; 85025; 94644; 96365; 99284; J3475

== ENCOUNTER 2021-08-30 09:08 | Inpatient (IN) | payer MEDICAID ==
[2021-08-30] MEDS ORDERED: IPRATROPIUM 0.02% NEBU 2.5 ML IH ONE ×2 (09:31→11:50)
[2021-08-30] MEDS ORDERED: ALBUTEROL 2.5 MG/3 ML NEBU IH ONE ×2 (09:31→11:50)
[2021-08-30] MEDS ORDERED: BENZONATATE 100 MG CAP PO ONE (09:32)
--- NOTE | 2021-08-30 09:51 | Emergency Department Report ---
HPI - General Chief Complaint: Adult Asthma Time Seen by Provider: 08/30/21 09:26 - HPI HPI: Room 18 The patient is a 56-year-old male presenting with a chief complaint of shortness of breath. Patient has a history of asthma and states he has had wheezing and a cough for the past 6 days. Patient states his cough has been productive of yellow sputum. Patient denies history of fever but admits to rhinorrhea. Patient complains of chest congestion as well. Patient states he has been vaccinated against COVID receiving 3 doses of the Moderna vaccine ED Past Medical Hx - Past Medical History Hx Hypertension: Yes Hx Asthma: Yes - Surgical History Past Surgical History?: No - Family History Family history: no significant - Social History Smoking Status: Never Smoker Substance Use Type: None (Denies illicit drug use) - Medications Home Medications: Home Medications Medication Instructions Recorded Confirmed Last Taken Type ALBUTEROL NEB's [Proventil 0.083% 2.5 mg INHALATION Q4H PRN 30 Days 12/25/19 Unknown Rx NEBS] nebu Albuterol Mdi (or & Nicu Only) 2 puff IH QID PRN #1 inhalation 12/25/19 Unknown Rx [ProAir HFA Inhaler] Azithromycin [Zithromax TAB] 500 mg PO QDAY #4 tablet 12/25/19 Unknown Rx Famotidine [Pepcid] 20 mg PO BID #15 tablet 12/25/19 Unknown Rx Montelukast [Singulair] 10 mg PO QDAY #30 tablet 12/25/19 Unknown Rx Prednisone [predniSONE 10 mg 10 mg PO .TAPER #1 tab.ds.pk 12/25/19 Unknown Rx (6-Day Pack, 21 Tabs)] Symbicort 160-4.5 Mcg Inhaler 1 inh INHALATION BID #1 12/25/19 Unknown Rx amLODIPine 10 mg PO QDAY #30 tablet 12/25/19 Unknown Rx guaiFENesin ER [Mucinex ER] 600 mg PO BID 7 Days #14 tablet 12/25/19 Unknown Rx hydrALAZINE [Apresoline TAB] 50 mg PO Q8HR #90 tablet 12/25/19 Unknown Rx lisinopriL [Zestril TAB] 20 mg PO QDAY #30 tablet 12/25/19 Unknown Rx Albuterol Mdi (or & Nicu Only) 2 puff IH QID PRN #1 inhalation 08/29/21 Unknown Rx [ProAir HFA Inhaler] Budesonide/Formoterol Fumarate 10.2 gm IH BID #1 08/29/21 Unknown Rx [Symbicort 160-4.5 Mcg Inhaler] Prednisone [predniSONE 10 mg 10 mg PO .TAPER #1 tab.ds.pk 08/29/21 Unknown Rx (6-Day Pack, 21 Tabs)] ED Review of Systems ROS: Stated complaint: ASTHMA Other details as noted in HPI Constitutional: denies: fever Eyes: denies: eye pain ENT: congestion Respiratory: cough, shortness of breath, wheezing Cardiovascular: denies: chest pain Endocrine: no symptoms reported Gastrointestinal: denies: abdominal pain Genitourinary: denies: dysuria Musculoskeletal: denies: back pain Neurological: denies: headache Physical Exam - Physical Exam Vital Signs: Vital Signs 08/30/21 09:12 Temperature 98.2 F Pulse Rate 110 H Respiratory 16 Rate Blood Pressure 160/100 [Left] O2 Sat by Pulse 99 Oximetry Physical Exam: GENERAL: The patient is well-developed well-nourished male sitting on stretcher coughing occasionally. [] HEENT: Normocephalic. Atraumatic. Extraocular motions are intact. Patient has moist mucous membranes. NECK: Supple. Trachea midline CHEST/LUNGS: Diffuse wheezing, occasional cough. Slightly increased work of breathing HEART/CARDIOVASCULAR: Regular. There is tachycardia. There is no gallop rub or murmur. ABDOMEN: Abdomen is soft, nontender. Patient has normal bowel sounds. There is no abdominal distention. SKIN: There is no rash. There is no edema. There is no diaphoresis. NEURO: The patient is awake, alert, and oriented. The patient is cooperative. The patient has no focal neurologic deficits. The patient has normal speech. GCS 15 MUSCULOSKELETAL:There is no evidence of acute injury. ED Course Vital Signs 08/30/21 09:12 Temperature 98.2 F Pulse Rate 110 H Respiratory 16 Rate Blood Pressure 160/100 [Left] O2 Sat by Pulse 99 Oximetry - Reevaluation(s) Reevaluation #1: 08/30/21 14:11 Patient continues to complain of shortness of breath despite nebs. Wheezing diffusely. 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 Sodium 140 Potassium 4.4 Chloride 100.7 Carbon Dioxide 25 Anion Gap 19 BUN 12 Creatinine 0.9 Estimated GFR > 60 BUN/Creatinine Ratio 13 Glucose 168 H Calcium 9.0 NT-Pro-B Natriuret Pep 193.9 - Radiology Data Radiology results: report reviewed (Chest x-ray), image reviewed (Chest x-ray) interpreted by me: Chest x-ray-no definite focal infiltrates, no pneumothorax [facility] [address] [place] [address] XRay Report Signed Patient: NAIF GOETZ MR#: [id number] : 1965 Acct:[id number] Age/Sex: 56 / M ADM Date: 08/30/21 Loc: ED Attending Dr: Ordering Physician: JONO STILL MD Date of Service: 08/30/21 Procedure(s): XR chest 1V ap Accession Number(s): [id number] cc: JONO STILL MD [facility] Time In Minutes: CHEST 1 VIEW 08/30/2021 8:58 AM INDICATION / CLINICAL INFORMATION: Productive cough, wheezing. COMPARISON: 08/29/2021 FINDINGS: SUPPORT DEVICES: None. HEART / MEDIASTINUM: No significant abnormality. LUNGS / PLEURA: No significant pulmonary or pleural abnormality. No pneumothorax. ADDITIONAL FINDINGS: No significant additional findings. IMPRESSION: 1. No acute findings. Signer Name: Nas Paredes Jr, MD Signed: 08/30/2021 10:01 AM Workstation Name: [id number] Transcribed By: TTR Dictated By: NAS PAREDES JR, MD Electronically Authenticated By: NAS PAREDES JR, MD Signed Date/Time: 08/30/21 100 DD/ 100 TD/TT: - Differential Diagnosis Asthma exacerbation, pneumonia Critical care attestation.: If time is entered above; I have spent that time in minutes in the direct care of this critically ill patient, excluding procedure time. ED Disposition Clinical Impression: Acute asthma exacerbation, Cough Disposition: 09 ADMITTED INPATIENT Is pt being admited?: Yes Does the pt Need Aspirin: No Condition: Fair Referrals: PRIMARY CARE,MD [Primary Care Provider] - 3-5 Days Time of Disposition: 14:12 (Care transferred to hospitalist (Dr. Neri))
--- NOTE | 2021-08-30 10:06 | XRay Report ---
CHEST 1 VIEW 08/30/2021 8:58 AM INDICATION / CLINICAL INFORMATION: Productive cough, wheezing. COMPARISON: 08/29/2021 FINDINGS: SUPPORT DEVICES: None. HEART / MEDIASTINUM: No significant abnormality. LUNGS / PLEURA: No significant pulmonary or pleural abnormality. No pneumothorax. ADDITIONAL FINDINGS: No significant additional findings. IMPRESSION: 1. No acute findings. Signer Name: Nas Paredes Jr, MD Signed: 08/30/2021 10:01 AM Workstation Name: [id number]
[2021-08-30 13:16] LABS: Hematocrit 45.4 % (35.5-45.6); Hemoglobin 14.3 gm/dl (11.8-15.2); Mean Corpuscular HGB Conc 31 % (32-34); Mean Corpuscular Volume 91 fl (84-94); Platelet Count 218 K/mm3 (140-440); Red Cell Distribution Width 14.5 % (13.2-15.2)
[2021-08-30 13:35] LABS: BUN/Creatinine Ratio 13; Blood Urea Nitrogen 12 mg/dL (9-20); Hemolysis Index 7
[2021-08-30 14:02] LABS: Basophils % (Manual) 0 % (0.0-1.8); Eosinophils % (Manual) 0 % (0.0-4.3); Total Cells Counted 100
[2021-08-30 14:04] LABS: Hypersegmented Neutrophils Rare; Large Platelets Rare; Ovalocytes Rare; Platelet Estimate Consistent w Auto; Poikilocytosis Rare; Stomatocytes Rare
--- NOTE | 2021-08-30 14:18 | History and Physical Report ---
History of Present Illness Chief complaint: I cannot breathe History of present illness: 56 YO Male with HTN, Moderate Persistent Asthma presents to ED for evaluation. Patient reports "I cannot breathe". Patient states that he has experienced shortness of breath over the past 1 week with acutely worsening symptoms over the past 1 day. Patient states that he has experienced increased use of nebulizer without relief. Patient subsequently failed outpatient therapy. EMS was notified and upon arrival the patient was found to be in distress. Patient placed on supplemental oxygen and transported to [facility] for further evaluation and care of the aforementioned symptoms. Patient was seen and evaluated in the emergency department. Lab and imaging studies reviewed. Patient found to have a pulse oximetry of 86% on room air which is consistent with acute hypoxemic respiratory failure secondary to status asthmaticus. Patient was found to be unable to speak in complete sentences, using accessory muscles to breathe, tripoding, anxious, with audible wheezing. Patient treated with IV steroid therapy and supplemental oxygen without significant improvement in symptoms. Patient initiated on noninvasive positive pressure ventilation with improvement in symptoms. Patient admitted to medical floor due to increased risk of pulmonary decompensation and for medical stabilization. Patient uses head gestures to deny fever, chills, chest pain, palpitations, skin rash, recent ill contacts, or known exposure to COVID-19. All medication listed at time of admission has been reconciled. Prior admission on 12/23/2019 reviewed. Advance care planning conducted in ED. Past History Past Medical History: hypertension, other (See HPI) Past Surgical History: No surgical history, Other (Reviewed) Social history: single. denies: smoking, alcohol abuse, prescription drug abuse Family history: hypertension Medications and Allergies Allergies Allergy/AdvReac Type Severity Reaction Status Date / Time bee pollen Allergy Shortness Verified 08/30/21 09:15 of Breath mold Allergy Shortness Uncoded 08/30/21 09:15 of Breath Home Medications Medication Instructions Recorded Confirmed Last Taken Type ALBUTEROL NEB's [Proventil 0.083% 2.5 mg INHALATION Q4H PRN 30 Days 12/25/19 Unknown Rx NEBS] nebu Albuterol Mdi (or & Nicu Only) 2 puff IH QID PRN #1 inhalation 12/25/19 Unknown Rx [ProAir HFA Inhaler] Azithromycin [Zithromax TAB] 500 mg PO QDAY #4 tablet 10/04/20 Unknown Rx Famotidine [Pepcid] 20 mg PO BID #15 tablet 12/25/19 Unknown Rx Montelukast [Singulair] 10 mg PO QDAY #30 tablet 12/25/19 Unknown Rx Prednisone [predniSONE 10 mg 10 mg PO .TAPER #1 tab.ds.pk 12/25/19 Unknown Rx (6-Day Pack, 21 Tabs)] Symbicort 160-4.5 Mcg Inhaler 1 inh INHALATION BID #1 12/25/19 Unknown Rx amLODIPine 10 mg PO QDAY #30 tablet 12/25/19 Unknown Rx guaiFENesin ER [Mucinex ER] 600 mg PO BID 7 Days #14 tablet 12/25/19 Unknown Rx hydrALAZINE [Apresoline TAB] 50 mg PO Q8HR #90 tablet 12/25/19 Unknown Rx lisinopriL [Zestril TAB] 20 mg PO QDAY #30 tablet 12/25/19 Unknown Rx Albuterol Mdi (or & Nicu Only) 2 puff IH QID PRN #1 inhalation 08/29/21 Unknown Rx [ProAir HFA Inhaler] Budesonide/Formoterol Fumarate 10.2 gm IH BID #1 08/29/21 Unknown Rx [Symbicort 160-4.5 Mcg Inhaler] Prednisone [predniSONE 10 mg 10 mg PO .TAPER #1 tab.ds.pk 08/29/21 Unknown Rx (6-Day Pack, 21 Tabs)] Review of Systems Constitutional: no weight loss, no weight gain, no fever Ears, nose, mouth and throat: no ear pain, no ear discharge, no nose pain, no nasal congestion, no nasal discharge Cardiovascular: no chest pain, no orthopnea, no palpitations, no syncope, no lightheadedness Respiratory: cough, shortness of breath, wheezing Gastrointestinal: no abdominal pain, no vomiting, no constipation, no change in bowel habits Genitourinary Male: no hematuria, no flank pain, no discharge, no urinary frequency, no urinary hesitancy Rectal: no pain, no incontinence, no bleeding Musculoskeletal: no neck stiffness, no neck pain, no shooting arm pain, no arm numbness/tingling Neurological: no head injury, no paralysis, no parathesias Psychiatric: no anxiety, no change in sleep habits, no insomnia, no hypersomnia, no change in libido Endocrine: no cold intolerance, no polyphagia, no excessive thirst, no polyuria Hematologic/Lymphatic: no easy bruising, no easy bleeding, no lymphedema Allergic/Immunologic: no urticaria, no wheezing, no persistent infections, no anaphylaxis Exam - Constitutional Vitals: Temp Pulse Resp BP Pulse Ox 98.2 F 95 H 20 160/100 99 08/30/21 09:12 08/30/21 11:56 08/30/21 11:56 08/30/21 09:12 08/30/21 09:12 General appearance: Present: mild distress - EENT Eyes: Present: PERRL ENT: hearing intact, clear oral mucosa - Neck Neck: Present: supple, normal ROM - Respiratory Respiratory effort: labored, pursed lips, accessory muscle use, stridor Respiratory: bilateral: diminished, wheezing - Cardiovascular Heart Sounds: Present: S1 & S2. Absent: rub, click - Extremities Extremities: pulses symmetrical, No edema Peripheral Pulses: within normal limits - Abdominal General gastrointestinal: Present: soft, non-tender, non-distended, normal bowel sounds Male genitourinary: Present: normal - Integumentary Integumentary: Present: clear, warm, dry - Musculoskeletal Musculoskeletal: gait normal, strength equal bilaterally - Psychiatric Psychiatric: appropriate mood/affect, intact judgment & insight - Neurologic Neurologic: CNII-XII intact, moves all extremities Results - Labs CBC & Chem 7: 08/30/21 11:58 08/30/21 11:58 Labs: Abnormal lab results 08/30/21 08/30/21 Range/Units 11:58 11:58 MCHC 31 L (32-34) % Seg Neuts % (Manual) 94.0 H (40.0-70.0) % Lymphocytes % (Manual) 4.0 L (13.4-35.0) % Seg Neutrophils # Man 8.9 H (1.8-7.7) K/mm3 Lymphocytes # (Manual) 0.4 L (1.2-5.4) K/mm3 Glucose 168 H (75-100) mg/dL Assessment and Plan - Patient Problems (1) Acute respiratory failure Current Visit: No Status: Acute Qualifiers: Respiratory failure complication: hypoxia Qualified Code(s): J96.01 - Acute respiratory failure with hypoxia Plan to address problem: Chest x-ray, pulse oximetry, supplemental oxygen, pulse oximetry, noninvasive positive pressure ventilation, IV steroid therapy, supportive care. Pulmonary toilet. (2) Acute asthma exacerbation Current Visit: No Status: Acute Qualifiers: Asthma severity: severe Plan to address problem: IV steroid therapy, supportive care, chest x-ray, supplemental oxygen, pulse oximetry, nebulizer therapy. (3) HTN (hypertension) Current Visit: No Status: Chronic Qualifiers: Hypertension type: primary hypertension Qualified Code(s): I10 - Essential (primary) hypertension Plan to address problem: Monitor blood pressure every shift, continue medical management. (4) DVT prophylaxis Current Visit: Yes Status: Acute Plan to address problem: SCD to bilateral lower extremities while in bed, (5) Advance care planning Current Visit: Yes Status: Acute Plan to address problem: Disease education conducted, care plan discussed, diagnoses discussed, prognosis discussed, patient is full code. Patient knowledges understanding and agreement with care plan, +30 minutes. (6) Preventative health care Current Visit: Yes Status: Acute Plan to address problem: Patient counseled regarding utilization of peak flow meter, anticipation of asthma exacerbation based on peak flow meter readings, medication compliance and avoidance of asthma triggers, +30 minutes.
[2021-08-30] MEDS ORDERED: oxyCODONE /ACETAMINOPHEN 5-325MG TAB PO PRN (15:00)
[2021-08-30] MEDS ORDERED: ONDANSETRON 4 MG/2 ML INJ IV PRN (15:00)
[2021-08-30] MEDS ORDERED: HYDROmorphone 0.5 MG/0.5 ML INJ IV PRN (15:00)
[2021-08-30] MEDS ORDERED: ACETAMINOPHEN 325 MG TAB PO PRN (15:00)
[2021-08-30] MEDS: methylPREDNISolone Sod Succinate 40 MG/1 ML INJ IV SCH ×2 (16:00→21:46)
[2021-08-30] MEDS: ALBUTEROL 2.5 MG/3 ML NEBU IH PRN ×2 (19:06→23:44)
[2021-08-30] MEDS: FAMOTIDINE 10 MG TAB PO SCH (21:46)
[2021-08-31] MEDS ORDERED: ALBUTEROL 8.5 GM MDI INHALATION IH ONE (01:34)
[2021-08-31] MEDS: methylPREDNISolone Sod Succinate 40 MG/1 ML INJ IV SCH ×3 (05:22→21:31)
[2021-08-31 07:10] LABS: BUN/Creatinine Ratio 16; Blood Urea Nitrogen 14 mg/dL (9-20); Hemolysis Index 40
[2021-08-31] MEDS: ALBUTEROL 8.5 GM MDI INHALATION IH SCH ×3 (07:22→20:52)
[2021-08-31] MEDS: FAMOTIDINE 10 MG TAB PO SCH ×2 (09:17→21:31)
--- NOTE | 2021-08-31 11:11 | Progress Note ---
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 Patient subsequently failed outpatient therapy. EMS was notified and upon arrival the patient was found to be in distress. Patient placed on supplemental oxygen and transported to [facility] for further evaluation and care of the aforementioned symptoms. Patient was seen and evaluated in the emergency department. Lab and imaging studies reviewed. Patient found to have a pulse oximetry of 86% on room air which is consistent with acute hypoxic respiratory failure secondary to status asthmaticus. Acute hypoxic respiratory failure Asthma exacerbation Hypertension 08/31/2021. Continue O2 supplementation to maintain sats greater than 92%. Continue bronchodilators/nebulizers. Continue IV steroids. History Interval history: No new issues Hospitalist Physical - Constitutional Vitals: Temp Pulse Resp BP Pulse Ox 98.2 F 72 18 156/96 97 08/31/21 03:36 08/31/21 07:22 08/31/21 07:22 08/31/21 03:36 08/31/21 08:00 General appearance: Present: mild distress - EENT Eyes: Present: PERRL, EOM intact ENT: hearing intact, clear oral mucosa, dentition normal - Neck Neck: Present: supple, normal ROM - Respiratory Respiratory effort: normal Respiratory: bilateral: CTA - Cardiovascular Rhythm: regular Heart Sounds: Present: S1 & S2. Absent: gallop, rub - Extremities Extremities: no ischemia, No edema, Full ROM - Abdominal General gastrointestinal: soft, non-tender, non-distended, normal bowel sounds - Integumentary Integumentary: Present: clear, warm, dry - Neurologic Neurologic: CNII-XII intact, moves all extremities Results - Labs CBC & Chem 7: 08/30/21 11:58 08/31/21 05:46 Labs: Laboratory Last Values WBC 9.5 K/mm3 (4.5-11.0) 08/30/21 11:58 RBC 5.00 M/mm3 (3.65-5.03) 08/30/21 11:58 Hgb 14.3 gm/dl (11.8-15.2) 08/30/21 11:58 Hct 45.4 % (35.5-45.6) 08/30/21 11:58 MCV 91 fl (84-94) 08/30/21 11:58 MCH 29 pg (28-32) 08/30/21 11:58 MCHC 31 % (32-34) L 08/30/21 11:58 RDW 14.5 % (13.2-15.2) 08/30/21 11:58 Plt Count 218 K/mm3 (140-440) 08/30/21 11:58 Add Manual Diff Complete 08/30/21 11:58 Total Counted 100 08/30/21 11:58 Seg Neutrophils % Higher Education Administrator 08/30/21 11:58 Seg Neuts % (Manual) 94.0 % (40.0-70.0) H 08/30/21 11:58 Band Neutrophils % 0 % 08/30/21 11:58 Lymphocytes % (Manual) 4.0 % (13.4-35.0) L 08/30/21 11:58 Reactive Lymphs % (Man) 0 % 08/30/21 11:58 Monocytes % (Manual) 2.0 % (0.0-7.3) 08/30/21 11:58 Eosinophils % (Manual) 0 % (0.0-4.3) 08/30/21 11:58 Basophils % (Manual) 0 % (0.0-1.8) 08/30/21 11:58 Metamyelocytes % 0 % 08/30/21 11:58 Myelocytes % 0 % 08/30/21 11:58 Promyelocytes % 0 % 08/30/21 11:58 Blast Cells % 0 % 08/30/21 11:58 Nucleated RBC % Not Reportable 08/30/21 11:58 Seg Neutrophils # Man 8.9 K/mm3 (1.8-7.7) H 08/30/21 11:58 Band Neutrophils # 0.0 K/mm3 08/30/21 11:58 Lymphocytes # (Manual) 0.4 K/mm3 (1.2-5.4) L 08/30/21 11:58 Abs React Lymphs (Man) 0.0 K/mm3 08/30/21 11:58 Monocytes # (Manual) 0.2 K/mm3 (0.0-0.8) 08/30/21 11:58 Eosinophils # (Manual) 0.0 K/mm3 (0.0-0.4) 08/30/21 11:58 Basophils # (Manual) 0.0 K/mm3 (0.0-0.1) 08/30/21 11:58 Metamyelocytes # 0.0 K/mm3 08/30/21 11:58 Myelocytes # 0.0 K/mm3 08/30/21 11:58 Promyelocytes # 0.0 K/mm3 08/30/21 11:58 Blast Cells # 0.0 K/mm3 08/30/21 11:58 WBC Morphology Not Reportable 08/30/21 11:58 Hypersegmented Neuts Rare 08/30/21 11:58 Hyposegmented Neuts Not Reportable 08/30/21 11:58 Hypogranular Neuts Not Reportable 08/30/21 11:58 Smudge Cells Not Reportable 08/30/21 11:58 Toxic Granulation Not Reportable 08/30/21 11:58 Toxic Vacuolation Not Reportable 08/30/21 11:58 Dohle Bodies Not Reportable 08/30/21 11:58 Pelger-Huet Anomaly Not Reportable 08/30/21 11:58 Kaiden Rods Not Reportable 08/30/21 11:58 Platelet Estimate Consistent w auto 08/30/21 11:58 Clumped Platelets Not Reportable 08/30/21 11:58 Plt Clumps, EDTA Not Reportable 08/30/21 11:58 Large Platelets Rare 08/30/21 11:58 Giant Platelets Not Reportable 08/30/21 11:58 Platelet Satelliting Not Reportable 08/30/21 11:58 Plt Morphology Comment Not Reportable 08/30/21 11:58 RBC Morphology Not Reportable 08/30/21 11:58 Dimorphic RBCs Not Reportable 08/30/21 11:58 Polychromasia Not Reportable 08/30/21 11:58 Hypochromasia Not Reportable 08/30/21 11:58 Poikilocytosis Rare 08/30/21 11:58 Anisocytosis Not Reportable 08/30/21 11:58 Microcytosis Not Reportable 08/30/21 11:58 Macrocytosis Not Reportable 08/30/21 11:58 Spherocytes Not Reportable 08/30/21 11:58 Pappenheimer Bodies Not Reportable 08/30/21 11:58 Sickle Cells Not Reportable 08/30/21 11:58 Target Cells Not Reportable 08/30/21 11:58 Tear Drop Cells Not Reportable 08/30/21 11:58 Ovalocytes Rare 08/30/21 11:58 Stomatocytes Rare 08/30/21 11:58 Helmet Cells Not Reportable 08/30/21 11:58 [place] Bodies Not Reportable 08/30/21 11:58 [place] Rings Not Reportable 08/30/21 11:58 [place] Cells Not Reportable 08/30/21 11:58 Bite Cells Not Reportable 08/30/21 11:58 Crenated Cell Not Reportable 08/30/21 11:58 Elliptocytes Not Reportable 08/30/21 11:58 Acanthocytes (Spur) Not Reportable 08/30/21 11:58 Rouleaux Not Reportable 08/30/21 11:58 Hemoglobin C Crystals Not Reportable 08/30/21 11:58 Schistocytes Not Reportable 08/30/21 11:58 Malaria parasites Not Reportable 08/30/21 11:58 [place] Bodies Not Reportable 08/30/21 11:58 Hem Pathologist Commnt No 08/30/21 11:58 Sodium 138 mmol/L (137-145) 08/31/21 05:46 Potassium 4.9 mmol/L (3.6-5.0) 08/31/21 05:46 Chloride 101.3 mmol/L (98-107) 08/31/21 05:46 Carbon Dioxide 24 mmol/L (22-30) 08/31/21 05:46 Anion Gap 18 mmol/L 08/31/21 05:46 BUN 14 mg/dL (9-20) 08/31/21 05:46 Creatinine 0.9 mg/dL (0.8-1.3) 08/31/21 05:46 Estimated GFR > 60 ml/min 08/31/21 05:46 BUN/Creatinine Ratio 16 % 08/31/21 05:46 Glucose 180 mg/dL (75-100) H 08/31/21 05:46 Calcium 9.0 mg/dL (8.4-10.2) 08/31/21 05:46 NT-Pro-B Natriuret Pep 193.9 pg/mL (0-900) 08/30/21 11:58 Microbiology: Microbiology 08/30/21 11:58 Peripheral/Venous Blood Culture - Preliminary Culture in Progress 08/30/21 11:58 Peripheral/Venous Blood Culture - Preliminary Culture in Progress Anguiano/IV: Voiding Method Toilet Active Medications - Current Medications Current Medications: Generic Name Dose Route Start Last Admin Trade Name Freq PRN Reason Stop Dose Admin Acetaminophen 650 mg 08/30/21 15:00 Acetaminophen 325 Mg Tab PO Q4H PRN Pain MILD(1-3)/Fever >100.5/HANSON Albuterol 2 puff 08/31/21 08:00 08/31/21 07:22 Albuterol 8.5 Gm Mdi Inhalation IH 2 inh Q6HRT LUIZ Administration Famotidine 10 mg 08/30/21 22:00 08/31/21 09:17 Famotidine 10 Mg Tab PO 10 mg BID LUIZ Administration Hydromorphone HCl 0.5 mg 08/30/21 15:00 Hydromorphone 0.5 Mg/0.5 Ml Inj IV Q23H PRN Pain , Severe (7-10) Methylprednisolone Sodium Succinate 40 mg 08/30/21 15:00 08/31/21 05:22 Methylprednisolone Sod Succinate 40 Mg/1 Ml Inj IV 40 mg Q8HR LUIZ Administration Ondansetron HCl 4 mg 08/30/21 15:00 Ondansetron 4 Mg/2 Ml Inj IV Q8H PRN Nausea And Vomiting Oxycodone/Acetaminophen 1 tab 08/30/21 15:00 Oxycodone /Acetaminophen 5-325mg Tab PO Q16H PRN Pain, Moderate (4-6) Sodium Chloride 10 ml 08/30/21 22:00 08/31/21 09:17 Sodium Chloride 0.9% 10 Ml Flush Syringe IV 10 ml BID LUIZ Administration Sodium Chloride 10 ml 08/30/21 15:00 Sodium Chloride 0.9% 10 Ml Flush Syringe IV PRN PRN LINE FLUSH
[2021-08-31] MEDS: cefTRIAXone/NS 1 GM/50 ML 1 GM/50 ML BAG IV SCH (14:04)
[2021-08-31] MEDS ORDERED: guaiFENesin 100 MG/5 ML ORAL LIQD PO PRN (14:10)
[2021-08-31] MEDS: ALBUTEROL 2.5 MG/3 ML NEBU IH PRN (22:02)
[2021-09-01] MEDS: ALBUTEROL 2.5 MG/3 ML NEBU IH PRN ×2 (02:48→08:50)
[2021-09-01] MEDS: ALBUTEROL 8.5 GM MDI INHALATION IH SCH ×2 (02:59→08:50)
[2021-09-01] MEDS: methylPREDNISolone Sod Succinate 40 MG/1 ML INJ IV SCH ×3 (05:37→21:40)
[2021-09-01] MEDS ORDERED: ALBUTEROL 2.5 MG/3 ML NEBU IH PRN (08:57)
[2021-09-01] MEDS: FAMOTIDINE 10 MG TAB PO SCH ×2 (09:05→21:40)
[2021-09-01] MEDS: cefTRIAXone/NS 1 GM/50 ML 1 GM/50 ML BAG IV SCH (13:44)
[2021-09-01] MEDS: IPRATROPIUM/ALBUTEROL SULFATE 3 ML AMPUL.NEB IH SCH ×2 (13:51→21:12)
[2021-09-01] MEDS: BUDESONIDE 0.5 MG/2 ML NEBU IH SCH (21:13)
[2021-09-01] MEDS: ARFORMOTEROL 15 MCG/2 ML NEBU IH SCH (21:13)
[2021-09-02] MEDS: methylPREDNISolone Sod Succinate 40 MG/1 ML INJ IV SCH ×3 (05:26→22:55)
[2021-09-02] MEDS: BUDESONIDE 0.5 MG/2 ML NEBU IH SCH ×2 (08:00→20:10)
[2021-09-02] MEDS: IPRATROPIUM/ALBUTEROL SULFATE 3 ML AMPUL.NEB IH SCH ×3 (08:00→20:10)
[2021-09-02] MEDS: ARFORMOTEROL 15 MCG/2 ML NEBU IH SCH ×2 (08:00→20:10)
--- NOTE | 2021-09-02 09:57 | Progress Note ---
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 Patient subsequently failed outpatient therapy. EMS was notified and upon arrival the patient was found to be in distress. Patient placed on supplemental oxygen and transported to [facility] for further evaluation and care of the aforementioned symptoms. Patient was seen and evaluated in the emergency department. Lab and imaging studies reviewed. Patient found to have a pulse oximetry of 86% on room air which is consistent with acute hypoxic respiratory failure secondary to status asthmaticus. Acute hypoxic respiratory failure Asthma exacerbation Hypertension 08/31/2021. Continue O2 supplementation to maintain sats greater than 92%. Continue bronchodilators/nebulizers. Continue IV steroids. 09/01/2021. Continue IV antibiotics, bronchodilators/nebulizers, and IV steroids. Patient still with significant dyspnea with exertion. Continue to monitor closely 09/02/2021. Patient's dyspnea has improved but still present with exertion. Continue IV antibiotics, bronchodilators/nebulizers, and IV steroids. History Interval history: No new issues Hospitalist Physical - Constitutional Vitals: Temp Pulse Resp BP Pulse Ox 98.1 F 84 20 167/96 97 09/02/21 04:18 09/02/21 08:00 09/02/21 08:00 09/02/21 04:18 09/02/21 08:00 General appearance: Present: mild distress - EENT Eyes: Present: PERRL, EOM intact ENT: hearing intact, clear oral mucosa, dentition normal - Neck Neck: Present: supple, normal ROM - Respiratory Respiratory effort: normal Respiratory: bilateral: CTA - Cardiovascular Rhythm: regular Heart Sounds: Present: S1 & S2. Absent: gallop, rub - Extremities Extremities: no ischemia, No edema, Full ROM - Abdominal General gastrointestinal: soft, non-tender, non-distended, normal bowel sounds - Integumentary Integumentary: Present: clear, warm, dry - Neurologic Neurologic: CNII-XII intact, moves all extremities Results - Labs CBC & Chem 7: 08/30/21 11:58 08/31/21 05:46 Labs: Laboratory Last Values WBC 9.5 K/mm3 (4.5-11.0) 08/30/21 11:58 RBC 5.00 M/mm3 (3.65-5.03) 08/30/21 11:58 Hgb 14.3 gm/dl (11.8-15.2) 08/30/21 11:58 Hct 45.4 % (35.5-45.6) 08/30/21 11:58 MCV 91 fl (84-94) 08/30/21 11:58 MCH 29 pg (28-32) 08/30/21 11:58 MCHC 31 % (32-34) L 08/30/21 11:58 RDW 14.5 % (13.2-15.2) 08/30/21 11:58 Plt Count 218 K/mm3 (140-440) 08/30/21 11:58 Add Manual Diff Complete 08/30/21 11:58 Total Counted 100 08/30/21 11:58 Seg Neutrophils % Liquor Tester 08/30/21 11:58 Seg Neuts % (Manual) 94.0 % (40.0-70.0) H 08/30/21 11:58 Band Neutrophils % 0 % 08/30/21 11:58 Lymphocytes % (Manual) 4.0 % (13.4-35.0) L 08/30/21 11:58 Reactive Lymphs % (Man) 0 % 08/30/21 11:58 Monocytes % (Manual) 2.0 % (0.0-7.3) 08/30/21 11:58 Eosinophils % (Manual) 0 % (0.0-4.3) 08/30/21 11:58 Basophils % (Manual) 0 % (0.0-1.8) 08/30/21 11:58 Metamyelocytes % 0 % 08/30/21 11:58 Myelocytes % 0 % 08/30/21 11:58 Promyelocytes % 0 % 08/30/21 11:58 Blast Cells % 0 % 08/30/21 11:58 Nucleated RBC % Not Reportable 08/30/21 11:58 Seg Neutrophils # Man 8.9 K/mm3 (1.8-7.7) H 08/30/21 11:58 Band Neutrophils # 0.0 K/mm3 08/30/21 11:58 Lymphocytes # (Manual) 0.4 K/mm3 (1.2-5.4) L 08/30/21 11:58 Abs React Lymphs (Man) 0.0 K/mm3 08/30/21 11:58 Monocytes # (Manual) 0.2 K/mm3 (0.0-0.8) 08/30/21 11:58 Eosinophils # (Manual) 0.0 K/mm3 (0.0-0.4) 08/30/21 11:58 Basophils # (Manual) 0.0 K/mm3 (0.0-0.1) 08/30/21 11:58 Metamyelocytes # 0.0 K/mm3 08/30/21 11:58 Myelocytes # 0.0 K/mm3 08/30/21 11:58 Promyelocytes # 0.0 K/mm3 08/30/21 11:58 Blast Cells # 0.0 K/mm3 08/30/21 11:58 WBC Morphology Not Reportable 08/30/21 11:58 Hypersegmented Neuts Rare 08/30/21 11:58 Hyposegmented Neuts Not Reportable 08/30/21 11:58 Hypogranular Neuts Not Reportable 08/30/21 11:58 Smudge Cells Not Reportable 08/30/21 11:58 Toxic Granulation Not Reportable 08/30/21 11:58 Toxic Vacuolation Not Reportable 08/30/21 11:58 Dohle Bodies Not Reportable 08/30/21 11:58 Pelger-Huet Anomaly Not Reportable 08/30/21 11:58 Kaiden Rods Not Reportable 08/30/21 11:58 Platelet Estimate Consistent w auto 08/30/21 11:58 Clumped Platelets Not Reportable 08/30/21 11:58 Plt Clumps, EDTA Not Reportable 08/30/21 11:58 Large Platelets Rare 08/30/21 11:58 Giant Platelets Not Reportable 08/30/21 11:58 Platelet Satelliting Not Reportable 08/30/21 11:58 Plt Morphology Comment Not Reportable 08/30/21 11:58 RBC Morphology Not Reportable 08/30/21 11:58 Dimorphic RBCs Not Reportable 08/30/21 11:58 Polychromasia Not Reportable 08/30/21 11:58 Hypochromasia Not Reportable 08/30/21 11:58 Poikilocytosis Rare 08/30/21 11:58 Anisocytosis Not Reportable 08/30/21 11:58 Microcytosis Not Reportable 08/30/21 11:58 Macrocytosis Not Reportable 08/30/21 11:58 Spherocytes Not Reportable 08/30/21 11:58 Pappenheimer Bodies Not Reportable 08/30/21 11:58 Sickle Cells Not Reportable 08/30/21 11:58 Target Cells Not Reportable 08/30/21 11:58 Tear Drop Cells Not Reportable 08/30/21 11:58 Ovalocytes Rare 08/30/21 11:58 Stomatocytes Rare 08/30/21 11:58 Helmet Cells Not Reportable 08/30/21 11:58 [place] Bodies Not Reportable 08/30/21 11:58 [place] Rings Not Reportable 08/30/21 11:58 [place] Cells Not Reportable 08/30/21 11:58 Bite Cells Not Reportable 08/30/21 11:58 Crenated Cell Not Reportable 08/30/21 11:58 Elliptocytes Not Reportable 08/30/21 11:58 Acanthocytes (Spur) Not Reportable 08/30/21 11:58 Rouleaux Not Reportable 08/30/21 11:58 Hemoglobin C Crystals Not Reportable 08/30/21 11:58 Schistocytes Not Reportable 08/30/21 11:58 Malaria parasites Not Reportable 08/30/21 11:58 [place] Bodies Not Reportable 08/30/21 11:58 Hem Pathologist Commnt No 08/30/21 11:58 Sodium 138 mmol/L (137-145) 08/31/21 05:46 Potassium 4.9 mmol/L (3.6-5.0) 08/31/21 05:46 Chloride 101.3 mmol/L (98-107) 08/31/21 05:46 Carbon Dioxide 24 mmol/L (22-30) 08/31/21 05:46 Anion Gap 18 mmol/L 08/31/21 05:46 BUN 14 mg/dL (9-20) 08/31/21 05:46 Creatinine 0.9 mg/dL (0.8-1.3) 08/31/21 05:46 Estimated GFR > 60 ml/min 08/31/21 05:46 BUN/Creatinine Ratio 16 % 08/31/21 05:46 Glucose 180 mg/dL (75-100) H 08/31/21 05:46 Calcium 9.0 mg/dL (8.4-10.2) 08/31/21 05:46 NT-Pro-B Natriuret Pep 193.9 pg/mL (0-900) 08/30/21 11:58 Coronavirus (PCR) Negative (Negative) 08/31/21 09:10 Microbiology: Microbiology 08/30/21 11:58 Peripheral/Venous Blood Culture - Preliminary NO GROWTH AFTER 48 HOURS 08/30/21 11:58 Peripheral/Venous Blood Culture - Preliminary NO GROWTH AFTER 48 HOURS Anguiano/IV: Voiding Method Toilet Active Medications - Current Medications Current Medications: Generic Name Dose Route Start Last Admin Trade Name Freq PRN Reason Stop Dose Admin Acetaminophen 650 mg 08/30/21 15:00 Acetaminophen 325 Mg Tab PO Q4H PRN Pain MILD(1-3)/Fever >100.5/HANSON Albuterol 2.5 mg 09/01/21 08:57 Albuterol 2.5 Mg/3 Ml Nebu IH Q4HRT PRN Shortness Of Breath Albuterol/Ipratropium 1 ampul 09/02/21 08:00 09/02/21 08:00 Ipratropium/Albuterol Sulfate 3 Ml Ampul.Neb IH Not Given TIDRT LUIZ Arformoterol Tartrate 15 mcg 09/01/21 20:00 09/02/21 08:00 Arformoterol 15 Mcg/2 Ml Nebu IH 15 mcg Q12HRT LUIZ Administration Budesonide 0.5 mg 09/01/21 20:00 09/02/21 08:00 Budesonide 0.5 Mg/2 Ml Nebu IH 0.5 mg Q12HRT LUIZ Administration Famotidine 10 mg 08/30/21 22:00 09/01/21 21:40 Famotidine 10 Mg Tab PO 10 mg BID LUIZ Administration Guaifenesin 200 mg 08/31/21 14:10 08/31/21 14:45 Guaifenesin 100 Mg/5 Ml Oral Liqd PO 200 mg Q4H PRN Administration Cough Hydromorphone HCl 0.5 mg 08/30/21 15:00 Hydromorphone 0.5 Mg/0.5 Ml Inj IV Q23H PRN Pain , Severe (7-10) Ceftriaxone Sodium 1 gm in 50 mls @ 100 mls/hr 08/31/21 14:00 09/01/21 13:44 Rocephin/Ns 1 Gm/50 Ml IV 100 mls/hr Q24H LUIZ Administration Protocol Methylprednisolone Sodium Succinate 40 mg 08/30/21 15:00 09/02/21 05:26 Methylprednisolone Sod Succinate 40 Mg/1 Ml Inj IV 40 mg Q8HR LUIZ Administration Ondansetron HCl 4 mg 08/30/21 15:00 Ondansetron 4 Mg/2 Ml Inj IV Q8H PRN Nausea And Vomiting Oxycodone/Acetaminophen 1 tab 08/30/21 15:00 Oxycodone /Acetaminophen 5-325mg Tab PO Q16H PRN Pain, Moderate (4-6) Sodium Chloride 10 ml 08/30/21 22:00 09/01/21 21:40 Sodium Chloride 0.9% 10 Ml Flush Syringe IV 10 ml BID LUIZ Administration Sodium Chloride 10 ml 08/30/21 15:00 09/02/21 05:26 Sodium Chloride 0.9% 10 Ml Flush Syringe IV 10 ml PRN PRN Administration LINE FLUSH
[2021-09-02] MEDS: FAMOTIDINE 10 MG TAB PO SCH ×2 (10:37→22:51)
[2021-09-02] MEDS: cefTRIAXone/NS 1 GM/50 ML 1 GM/50 ML BAG IV SCH (13:53)
[2021-09-03] MEDS: methylPREDNISolone Sod Succinate 40 MG/1 ML INJ IV SCH (06:06)
[2021-09-03 06:55] LABS: Hematocrit 45.2 % (35.5-45.6); Hemoglobin 14.4 gm/dl (11.8-15.2); Mean Corpuscular HGB Conc 32 % (32-34); Mean Corpuscular Volume 89 fl (84-94); Red Blood Count 5.09 M/mm3 (3.65-5.03)
[2021-09-03 06:57] LABS: Platelet Count 198 K/mm3 (140-440)
[2021-09-03 07:31] LABS: BUN/Creatinine Ratio 25; Blood Urea Nitrogen 20 mg/dL (9-20); Calcium 8.2 mg/dL (8.4-10.2); Hemolysis Index 165
[2021-09-03] MEDS: ARFORMOTEROL 15 MCG/2 ML NEBU IH SCH (09:34)
[2021-09-03] MEDS: IPRATROPIUM/ALBUTEROL SULFATE 3 ML AMPUL.NEB IH SCH ×2 (09:35→15:01)
[2021-09-03] MEDS: BUDESONIDE 0.5 MG/2 ML NEBU IH SCH (09:35)
[2021-09-03] MEDS: FAMOTIDINE 10 MG TAB PO SCH (09:58)
[2021-09-03] MEDS ORDERED: NIFEdipine XL 30 MG TAB PO SCH (10:00)
[2021-09-03] MEDS ORDERED: CALCIUM CARBONATE 1250 MG TAB PO SCH (10:00)
[2021-09-03 10:35] VITALS: BP 169/95
[2021-09-03 11:17] LABS: Basophils % (Manual) 0 % (0.0-1.8); Eosinophils % (Manual) 0 % (0.0-4.3); Total Cells Counted 100
[2021-09-03 11:18] LABS: Platelet Estimate Consistent w Auto; RBC Morphology Normal
--- NOTE | 2021-09-03 13:49 | Discharge Summary ---
Providers - Providers Date of Admission: 08/30/21 14:20 Date of discharge: 09/03/21 Attending physician: EILEEN CEE MD Primary care physician: [employer] Hospitalization Reason for admission: Acute hypoxic respiratory failure, asthma exacerbation Condition: Fair Pertinent studies: Reviewed. Procedures: None. Hospital course: Patient is a 56-year-old male past medical history of hypertension, moderate persistent asthma, and obesity who presented to the ED with complaints of shortness of breath and stating "I cannot breathe". Patient states that he has experienced shortness of breath over the past 1 week with acutely worsening symptoms over the past 1 day. Patient states that he has experienced increased use of nebulizer without relief. Patient subsequently failed outpatient therapy. EMS was notified and upon arrival the patient was found to be in distress. Patient placed on supplemental oxygen and transported to [facility] for further evaluation and care of the aforementioned symptoms. Patient was seen and evaluated in the emergency department. Lab and imaging studies reviewed. Patient found to have a pulse oximetry of 86% on room air which is consistent with acute hypoxemic respiratory failure secondary to status asthmaticus. Patient was found to be unable to speak in complete sentences, using accessory muscles to breathe, tripoding, anxious, with audible wheezing. Patient treated with IV steroid therapy and supplemental oxygen without significant improvement in symptoms. Patient initiated on noninvasive positive pressure ventilation with improvement in symptoms. Patient admitted to medical floor due to increased risk of pulmonary decompensation and for medical stabilization. Patient uses head gestures to deny fever, chills, chest pain, palpitations, skin rash, recent ill contacts, or known exposure to COVID-19. Patient was eventually weaned from noninvasive positive pressure ventilation to supplemental oxygen and eventually room air. Patient was continued on steroids and antibiotics. The patient has since been weaned to room air, and he is medically clear for discharge. Patient was referred to PCP for further outpatient management, the patient expressed understanding. Patient's medications were refilled. Disposition: 01 HOME / SELF CARE / HOMELESS Final Discharge Diagnosis (Prints w/discharge instructions): Acute hypoxic respiratory failure, asthma exacerbation, hypertension, morbid obesity, hyponatremia, hyperkalemia, hypocalcemia, hyperglycemia Time spent for discharge: 45 min Core Measure Documentation - Palliative Care Palliative Care/ Comfort Measures: Not Applicable - Core Measures Any of the following diagnoses?: none Exam - Constitutional Vitals: Temp Pulse Resp BP Pulse Ox 97 F L 91 H 18 169/95 97 09/03/21 10:34 09/03/21 10:34 09/03/21 10:34 09/03/21 10:34 09/03/21 13:02 General appearance: Present: no acute distress, well-nourished, obese - EENT Eyes: Present: PERRL, EOM intact ENT: hearing intact, clear oral mucosa, dentition normal - Neck Neck: Present: supple, normal ROM - Respiratory Respiratory effort: normal Respiratory: bilateral: diminished - Cardiovascular Rhythm: regular Heart Sounds: Present: S1 & S2 - Extremities Extremities: no ischemia, pulses intact, pulses symmetrical, No edema, normal temperature, normal color, Full ROM Peripheral Pulses: within normal limits - Abdominal General gastrointestinal: Present: soft, non-tender, non-distended, normal bowel sounds Male genitourinary: Present: deferred - Rectal Rectal Exam: deferred - Integumentary Integumentary: Present: clear, warm, dry - Musculoskeletal Musculoskeletal: strength equal bilaterally - Psychiatric Psychiatric: appropriate mood/affect, intact judgment & insight, memory intact, cooperative - Neurologic Neurologic: CNII-XII intact, moves all extremities - Allied Health Allied health notes reviewed: nursing Plan Activity: no restrictions Diet: low salt Additional Instructions: Patient is a 56-year-old male past medical history of hypertension, moderate persistent asthma, and obesity who presented to the ED with complaints of shortness of breath and stating "I cannot breathe". Patient states that he has experienced shortness of breath over the past 1 week with acutely worsening symptoms over the past 1 day. Patient states that he has experienced increased use of nebulizer without relief. Patient subsequently failed outpatient therapy. EMS was notified and upon arrival the patient was found to be in distress. Patient placed on supplemental oxygen and transported to [facility] for further evaluation and care of the aforementioned symptoms. Patient was seen and evaluated in the emergency department. Lab and imaging studies reviewed. Patient found to have a pulse oximetry of 86% on room air which is consistent with acute hypoxemic respiratory failure secondary to status asthmaticus. Patient was found to be unable to speak in complete sentences, using accessory muscles to breathe, tripoding, anxious, with audible wheezing. Patient treated with IV steroid therapy and supplemental oxygen without significant improvement in symptoms. Patient initiated on noninvasive positive pressure ventilation with improvement in symptoms. Patient admitted to medical floor due to increased risk of pulmonary decompensation and for medical stabilization. Patient uses head gestures to deny fever, chills, chest pain, palpitations, skin rash, recent ill contacts, or known exposure to COVID-19. Patient was eventually weaned from noninvasive positive pressure ventilation to supplemental oxygen and eventually room air. Patient was continued on steroids and antibiotics. The patient has since been weaned to room air, and he is medically clear for discharge. Patient was referred to PCP for further outpatient management, the patient expressed understanding. Patient's medications were refilled. Care Plan Goals: Patient is medically cleared for discharge. Assessment: Patient is a 56-year-old male past medical history of hypertension, moderate persistent asthma, and obesity who presented to the ED with complaints of shortness of breath and stating "I cannot breathe". Patient states that he has experienced shortness of breath over the past 1 week with acutely worsening symptoms over the past 1 day. Patient states that he has experienced increased use of nebulizer without relief. Patient subsequently failed outpatient therapy. EMS was notified and upon arrival the patient was found to be in distress. Patient placed on supplemental oxygen and transported to [facility] for further evaluation and care of the aforementioned symptoms. Patient was seen and evaluated in the emergency department. Lab and imaging studies reviewed. Patient found to have a pulse oximetry of 86% on room air which is consistent with acute hypoxemic respiratory failure secondary to status asthmaticus. Patient was found to be unable to speak in complete sentences, using accessory muscles to breathe, tripoding, anxious, with audible wheezing. Patient treated with IV steroid therapy and supplemental oxygen without significant improvement in symptoms. Patient initiated on noninvasive positive pressure ventilation with improvement in symptoms. Patient admitted to medical floor due to increased risk of pulmonary decompensation and for medical stabilization. Patient uses head gestures to deny fever, chills, chest pain, palpitations, skin rash, recent ill contacts, or known exposure to COVID-19. Patient was eventually weaned from noninvasive positive pressure ventilation to supplemental oxygen and eventually room air. Patient was continued on steroids and ant ibiotics. The patient has since been weaned to room air, and he is medically clear for discharge. Patient was referred to PCP for further outpatient management, the patient expressed understanding. Patient's medications were refilled. Follow up with: DENILSON VILLARREAL MD [Primary Care Provider] - 3-5 Days TAMICA LAUREANO MD [Staff Physician] - 7 Days Prescriptions: Albuterol Mdi (or & Nicu Only) [ProAir HFA Inhaler] 2 puff IH QID PRN #1 inhalation PRN Reason: Shortness Of Breath NIFEdipine XL [Procardia Xl] 30 mg PO QDAY #30 tablet Budesonide/Formoterol Fumarate [Symbicort 160-4.5 Mcg Inhaler] 2 puff IH BID #2 inhalation
== END 2021-09-03 14:25 | disposition home or self-care (01) | DRG 189 ==
LOC: ED 09:08 → 3A 14:20
PROVIDERS: ADMIT Internal Medicine; ATTEND Student in an Organized Health Care Education/Training Program
DX: J96.01 Acute respiratory failure with hypoxia (principal); J45.42 Moderate persistent asthma with status asthmaticus; I10 Essential (primary) hypertension; E66.01 Morbid (severe) obesity due to excess calories; Z20.822 Contact with and (suspected) exposure to COVID-19; E87.1 Hypo-osmolality and hyponatremia; R73.9 Hyperglycemia, unspecified; E87.5 Hyperkalemia; E83.51 Hypocalcemia; J45.41 Moderate persistent asthma with (acute) exacerbation; Z82.49 Family history of ischemic heart disease and other diseases of the circulatory system; Z91.030 Bee allergy status; Z79.899 Other long term (current) drug therapy; Z68.35 Body mass index [BMI] 35.0-35.9, adult
CPT/HCPCS: 36415; 71045; 80048; 83880; 85007; 85025; 87040; 94640; 94644; 94760; 96365; 99284; G0378; J0696; J2920; J3475; U0003